=== PATIENT | female | born 1990 | race American Indian/Alaskan Native ===

== ENCOUNTER 2021-09-02 07:49 | Outpatient (CLI) | payer OTHER, MEDICAID ==
[2021-09-02 08:25] VITALS: BP 121/70
== END 2021-09-02 09:30 | disposition home or self-care (01) ==
LOC: TRG 07:49 → APU 07:50 → TRG 09:30
PROVIDERS: ATTEND Obstetrics & Gynecology
DX: O46.93 Antepartum hemorrhage, unspecified, third trimester (principal); Z3A.29 29 weeks gestation of pregnancy
CPT/HCPCS: 36415; 59025; 84112

== ENCOUNTER 2021-09-03 10:52 | Inpatient (IN) | payer OTHER, MEDICAID ==
[2021-09-03] MEDS ORDERED: MAGNESIUM HYDROXIDE (MOM) ORAL LIQD UDC PO PRN (11:10)
[2021-09-03] MEDS ORDERED: ONDANSETRON 4 MG/2 ML INJ IV PRN (11:10)
[2021-09-03] MEDS ORDERED: DOCUSATE SODIUM 100 MG CAP PO PRN (11:10)
[2021-09-03] MEDS ORDERED: ALUM-MAG HYDROXIDE-SIMETHICONE 200-200-20MG/5ML ORAL LIQD 30 ML PO PRN (11:10)
[2021-09-03] MEDS ORDERED: miSOPROStol 200 MCG TAB PR PRN (11:20)
[2021-09-03] MEDS ORDERED: TERBUTALINE 1 MG/1 ML INJ SUB-Q PRN (11:20)
[2021-09-03] MEDS ORDERED: OXYTOCIN 10 UNIT/1 ML INJ IM PRN (11:20)
[2021-09-03] MEDS ORDERED: ePHEDrine SULFATE 50 MG/1 ML INJ IV PRN (11:20)
[2021-09-03] MEDS ORDERED: METHYLERGONOVINE MALEATE 0.2 MG/ML VIAL IM PRN (11:20)
[2021-09-03] MEDS ORDERED: LOPERAMIDE 2 MG CAP PO PRN (11:20)
[2021-09-03] MEDS ORDERED: CARBOPROST TROMETHAMINE 250 MCG/1 ML INJ IM PRN (11:20)
--- NOTE | 2021-09-03 11:24 | History and Physical Report ---
History of Present Illness Date of examination: 09/03/21 Date of admission: 09/03/21 10:52 Chief complaint: Sent from office d/t PPROM. History of present illness: Pt states that she has been leaking fluids since Friday 09/01 @ 0800am. Was seen in triage and had a negative ROM test. At today's visit there was positive pooling and positive nitrazine. Consulted with Dr. Neumann. Will admit to labor and delivery and consult [facility]. Of note: this pt has been followed by [facility] d/t right pyelectasis, a thickened nuchal fold, suspected poor growth, and a vanishing twin. [facility], IUGR not found (EFW 46%, 2lb 3oz @ 26.5 wks), normal echo, right renal pyelectasis seen. EDC Confirmation: 11/15/2021 Gestational Age: 29.4 weeks on admission Past History : 1 Term Births: 0 Premature Births: 0 Living Children: 0 Para: 0 Mult. Births: 0 Prev : 0 Prev. attempt? 0 Aborta: 0 Elect. Ab: 0 Spont. Ab: 0 Ectopics: 0 Past Medical History: Reviewed and updated today: Negative Past Medical History Past Surgical History: Reviewed and updated today: Negative Past Surgical History Family History Summary: First Degree Blood Relative - Has No Known Family History - Entered On: 05/05/2021 Social History: Patient is single Smoking History: Patient is a former smoker. 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 Drug Use: no Past Medical History Surgery (Non-program coordinator): Negative Past Surgical History Abnormal PAP: negative KVNG Exposure: negative Infertility: negative Uterine Anomaly: negative Uterine Surgery (not C/S): negative Other Gynecologic Problems: negative Social Hx: Patient is single Smoking History: Patient is a former smoker. Stopped one month ago Infection History Hx of STD: none HIV Risk Eval: no Hepatitis B Risk Eval: low risk Personal hx. of genital herpes: no Rash, Viral, or Febrile illness since last LMP? no Varicella/Chicken Pox Status: Unknown TB Risk: no Genetic History Congenital Heart Defect: Mom: no Dad: no Jyoti Disease: Mom: no Dad: no Thalassemia Mom: no Dad: no Neural Tube Defect Mom: no Dad: no Down's Syndrome Mom: no Dad: no Mauro-Sachs Mom: no Dad: no Sickle Cell Disease/Trait Mom: no Dad: yes Hemophilia Mom: no Dad: no Muscular Dystrophy Mom: no Dad: no Cystic Fibrosis Mom: no Dad: no Sharon Chorea Mom: no Dad: no Mental Retardation Mom: no Dad: no Fragile X Mom: no Dad: no Other Genetic/Chromosomal Disorder Mom: no Dad: no Child w/other defect Mom: no Dad: no Enviromental Exposures Enviromental Exposures Reviewed Xray Exposure: no Medication, drug, or alcohol use since LMP: no Chemical/Other Exposure: no Exposure to Cat Liter: no Hx of Parvovirus (Fifth Disease): no Occupational Exposure to Children: none 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 Medications (reviewed today): None Current Allergies (reviewed today): No known allergies Laboratory Results Past History Past Medical History: no pertinent history Past Surgical History: no surgical history Family/Genetic History: none Social history: smoking (Former smoker, quit one month before first vi sit.) - Obstetrical History Expected Date of Delivery: 11/15/21 Actual Gestation: 29 Week(s) 4 Day(s) : 1 Para: 0 Hx # Term Pregnancies: 0 Number of Pregnancies: 0 Spontaneous Abortions: 0 Induced : 0 Number of Living Children: 0 Medications and Allergies Allergies Allergy/AdvReac Type Severity Reaction Status Date / Time No Known Allergies Allergy Verified 09/02/21 08:12 Home Medications Medication Instructions Recorded Confirmed Last Taken Type No.137/Iron/Folic Acd 1 tab PO DAILY 09/02/21 09/02/21 09/01/21 12:00 History [[facility] Vitamins Tablet] Active Meds: Active Medications Acetaminophen (Acetaminophen 325 Mg Tab) 1,000 mg PO Q6H PRN PRN Reason: Pain MILD(1-3)/Fever >100.5/PARKS Al Hydrox/Mg Hydrox/Simethicone (Alum-Mag Hydroxide-Simethicone [phone]/5ml Oral Liqd 30 Ml) 30 ml PO Q6H PRN PRN Reason: Indigestion Betamethasone Acet/Betameth SodPhos (Betamet Acet/Betamet Na Ph 6 Mg/Ml Inj 5 Ml Mdv) 12 mg IM Q24HR ANNALISA Stop: 09/04/21 10:01 Carboprost Tromethamine (Carboprost Tromethamine 250 Mcg/1 Ml Inj) 250 mcg IM ONCE PRN PRN Reason: Uterine Bleeding Diphenhydramine HCl (Diphenhydramine 25 Mg Cap) 25 mg PO Q6H PRN PRN Reason: Itching Docusate Sodium (Docusate Sodium 100 Mg Cap) 100 mg PO Q12H PRN PRN Reason: Constipation Ephedrine Sulfate (Ephedrine Sulfate 50 Mg/1 Ml Inj) 10 mg IV Q2M PRN PRN Reason: Hypotension Lactated Ringer's (Lactated Ringers) 1,000 mls @ 125 mls/hr IV DIRECT ANNALISA Ampicillin Sodium (Ampicillin/Ns 2 Gm/100 Ml) 2 gm in 100 mls @ 100 mls/hr IV Q6H ANNALISA; Protocol Stop: 09/05/21 06:59 Erythromycin Lactobionate 250 (mg/ Sodium Chloride) 100 mls @ 100 mls/hr IV Q6H ANNALISA; Protocol Stop: 09/05/21 06:59 Lactated Ringer's (Lactated Ringers) 1,000 mls @ 125 mls/hr IV DIRECT ANNALISA Oxytocin/Sodium Chloride (Pitocin/Ns 30 Unit/500ml) 30 units in 500 mls @ 40 mls/hr IV TITR ANNALISA; Protocol Loperamide HCl (Loperamide 2 Mg Cap) 2 mg PO ONCE PRN PRN Reason: give with Hemabate Magnesium Hydroxide (Magnesium Hydroxide (Mom) Oral Liqd Udc) 30 ml PO QHS PRN PRN Reason: Laxative Effect Methylergonovine Maleate (Methylergonovine Maleate 0.2 Mg/Ml Vial) 0.2 mg IM ONCE PRN PRN Reason: Uterine Bleeding Misoprostol (Misoprostol 200 Mcg Tab) 800 mcg MD ONCE PRN PRN Reason: Uterine Bleeding Multivitamins/Iron/Calcium ( Gxi48-Tr Fumarate-Folic Acid Vit Tab) 1 each PO QDAY ANNALISA Ondansetron HCl (Ondansetron 4 Mg/2 Ml Inj) 4 mg IV Q6H PRN PRN Reason: Nausea And Vomiting Oxytocin (Oxytocin 10 Unit/1 Ml Inj) 10 unit IM ONCE PRN PRN Reason: Uterine Bleeding Terbutaline Sulfate (Terbutaline 1 Mg/1 Ml Inj) 0.25 mg SUB-Q ONCE PRN PRN Reason: Hyperstimulation/Hypertonicity Review of Systems All systems: negative - Vital Signs Vital signs: During office exam per speculum: + pooling. Large amount of clear fluid seen in vaginal vault. Cervix appears closed at this time. Nitrazine positive. - Physical Exam Breasts: Positive: deferred Cardiovascular: Regular rate Lungs: Positive: Normal air movement Abdomen: Positive: normal appearance, soft Genitourinary (Female): Positive: normal external genitalia, normal perenium Vulva: both: normal Vagina: Positive: other (Large amount of clear fluid seen in vagina. ) Uterus: Positive: normal size (For 29 week gestation) Extremities: Positive: normal - Obstetrical FHR: category 1 Uterine Contraction Monitor Mode: External Cervical Dilatation: 0 (By appearance on speculum exam. ) Results Result Diagrams: 09/03/21 13:00 All other labs normal. GBS UNKNOWN HBsAg Screen Negative Negative *1 RPR Non Reactive Non Reactive *2 Rubella Antibodies, IgG 2.32 index Immune >0.99 *3 Non-immune <0.90 Equivocal 0.90 - 0.99 Immune >0.99 ABO Grouping O *4 Rh Factor Positive *5 Please note: Prior records for this patient's ABO / Rh type are not available for additional verification. Antibody Screen Negative Negative *6 WBC 10.2 x10E3/uL 3.4-10.8 *7 RBC [L] 3.63 x10E6/uL 3.77-5.28 *8 Hemoglobin 11.1 g/dL 11.1-15.9 *9 Hematocrit 34.9 % 34.0-46.6 *10 MCV 96 fL 79-97 *11 MCH 30.6 pg 26.6-33.0 *12 MCHC 31.8 g/dL 31.5-35.7 *13 RDW 12.0 % 11.7-15.4 *14 Platelets 276 x10E3/uL 150-450 *15 Neutrophils 74 % Not Estab. *16 Lymphs 18 % Not Estab. *17 Monocytes 7 % Not Estab. *18 Eos 1 % Not Estab. *19 Basos 0 % Not Estab. *20 ! Immature Cells <No Reported Value> *21 Neutrophils (Absolute) [H] 7.6 x10E3/uL 1.4-7.0 *22 Lymphs (Absolute) 1.9 x10E3/uL 0.7-3.1 *23 Monocytes(Absolute) 0.7 x10E3/uL 0.1-0.9 *24 Eos (Absolute) 0.1 x10E3/uL 0.0-0.4 *25 Baso (Absolute) 0.0 x10E3/uL 0.0-0.2 *26 ! Immature Granulocytes 0 % Not Estab. *27 ! Immature Grans (Abs) 0.0 x10E3/uL 0.0-0.1 *28 ! NRBC <No Reported Value> *29 Hematology Comments: <No Reported Value> *30 Tests: (2) HB Solu + Rflx Frac (481034) Hemoglobin (Hgb) Solubility Negative Negative *31 Tests: (3) HIV Ag/Ab with Reflex ([id number]) HIV Screen 4th Generation wRfx Non Reactive Non Reactive *32 Tests: (4) HCV Antibody reflex to MELANY ([id number]) HCV Ab <0.1 s/co ratio 0.0-0.9 *33 Tests: (5) Interpretation: ([id number]) ! Interpretation: SPRCS *34 Negative Not infected with HCV, unless recent infection is suspected or other evidence exists to indicate HCV infection. Assessment and Plan A: 30 y.o. @ 29.4 wks, PPROM. - Patient Problems (1) Nuchal fold thickening on ultrasound Current Visit: Yes Status: Acute (2) Pyelectasis of fetus on ultrasound Current Visit: Yes Status: Acute (3) premature rupture of membranes (PPROM) with unknown onset of labor Current Visit: Yes Status: Acute Plan to address problem: Admit to labor and delivery. Initiate IV. Draw admission labs. Start antibiotics. Steroids. Consult AMFM (called and will come evaluate). NICU consult. (4) with 29 completed weeks gestation Current Visit: Yes Status: Acute Plan to address problem: Continuous EFM for now.
[2021-09-03] MEDS ORDERED: OXYTOCIN DRIP 30 UNITS/500 ML BAG IV SCH (12:00)
[2021-09-03] MEDS ORDERED: ACETAMINOPHEN 325 MG TAB PO PRN (12:00)
[2021-09-03 13:01] LABS: Bilirubin,Urine NEG (Negative); Blood,Urine NEG (Negative); Color,Urine Yellow (Yellow); Protein,Urine <15 mg/dL mg/dL (Negative); RBC,Urine < 1.0 /HPF (0.0-6.0); Urobilinogen,Urine < 2.0 mg/dL (<2.0)
[2021-09-03] MEDS: BETAMET ACET/BETAMET NA PH 6 MG/ML INJ 5 ML MDV IM SCH (13:11)
[2021-09-03 13:20] LABS: Basophils % (Auto) 0.1 % (0.0-1.8); Eosinophils % (Auto) 0.5 % (0.0-4.3); Hemoglobin 12.1 gm/dl (10.1-14.3); Lymphocytes # (Auto) 1.3 K/mm3 (1.2-5.4); Lymphocytes % (Auto) 13.6 % (13.4-35.0); Mean Corpuscular HGB Conc 34 % (30-34); Mean Corpuscular Volume 94 fl (79-97); Monocytes # (Auto) 0.3 K/mm3 (0.0-0.8); Monocytes % (Auto) 3.6 % (0.0-7.3); Platelet Count 226 K/mm3 (140-440); Red Blood Count 3.82 M/mm3 (3.65-5.03); Red Cell Distribution Width 12.7 % (13.2-15.2)
[2021-09-03] MEDS: LACTATED RINGERS 1,000 ML IV SCH (13:36)
[2021-09-03] MEDS: ERYTHROMYCIN LACTOBIONATE 250 MG in SODIUM CHLORIDE 0.9% 100 ML IV SCH ×2 (13:36→20:15)
--- NOTE | 2021-09-03 13:46 | Consultation ---
"Consult Note - Parent Education I met with parent(s) and discussed the following:: Need for NICU admission, Poss ible need for intubation and surfactant or other resp support, Temperature regulation, Head ultrasounds to evaluate IVH, Eye exams for ROP screening, Possible need for IV fluids/TPN and IV antibiotics, Possible need for umbilical lines, Importance of providing breast milk & encouraged pumping aft delivery, Donor breast milk if baby meets criteria after , Need to monitor for jaundice Assessment and Plan - Plan Plan: NICU CONSULT done by tours hostess in L&D room 09/03/21 145 pm OB asked Neonatology for consult on this 30 year old mom who presents with PPROM at 29 weeks. Per report, mom ruptured on 09/01 and presented to L&D on 09/03. Discussion with mom regarding expectation of delivery at this gestation, including risk of lung disease, possibly needing prolonged invasive intubation, risk of sepsis given prolonged rupture. 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 |Donor milk is approved for babies born under 32 weeks but I encourage mom's own milk for improved protein quantity. Need for possible blood transfusion also reviewed with the mother. need for prolonged NICU stay also reviewed. All questions answered. Support provided to the mother. Thank you for this consult on this high risk patient. PLAN: Agree with ABNER cline/srinivasa for latency meds OB mgmt per OB/MFM Hopefully mom can stay for some time longer (until 34 weeks) if she does not develop signs/sx of infection or does not progress into active labor. Continue to keep NICU informed of any clinical changes Time spent on consult 30 minutes Katarzyna Navas MD Supervisor [employer]"
[2021-09-03] MEDS: AMPICILLIN/NS 2 GM/100 ML 2 GM/100 ML BAG IV SCH ×2 (14:59→21:40)
--- NOTE | 2021-09-03 17:26 | Ultrasound Report ---
ULTRASOUND OBSTETRIC COMPLETE INDICATION / CLINICAL INFORMATION: Estimated weight. Clinical Gestational Age (GA) in weeks, days: 29 weeks 4 days TECHNIQUE: Transabdominal. COMPARISON: None available. FINDINGS: NUMBER: Single PRESENTATION: cephalic PLACENTA: anterior MATERNAL ADNEXA: No significant abnormality. AMNIOTIC FLUID VOLUME: Lower limits of normal AMNIOTIC FLUID INDEX (SO) in cm (if measured): 7.2 MEASUREMENTS: - Biparietal Diameter = 7.3 cm = 29 weeks 3 days - Head Circumference = 26.8 cm = 29 weeks 1 day - Abdominal Circumference = 26.1 cm = 30 weeks 2 days - Femur Length = 5.6 cm = 29 weeks 4 days - Estimated Weight (in grams, if calculated): 1471 - Heart Rate (beats per minute): 142 ADDITIONAL FINDINGS: None. AVERAGE ULTRASOUND AGE (AUA) in weeks, days = 29 weeks 4 days IMPRESSION: 1. Single intrauterine with AUA of 29 weeks 4 days. Estimated weight is 1,471 grams. 2. SO measures 7.2 cm, which is at the lower limits of normal. Recommend continued follow-up. Signer Name: Ray Cruz MD Signed: 09/03/2021 5:22 PM Workstation Name: [id number]
[2021-09-04] MEDS: LACTATED RINGERS 1,000 ML IV SCH ×3 (00:57→22:49)
[2021-09-04] MEDS: ERYTHROMYCIN LACTOBIONATE 250 MG in SODIUM CHLORIDE 0.9% 100 ML IV SCH ×4 (01:45→20:24)
[2021-09-04] MEDS: AMPICILLIN/NS 2 GM/100 ML 2 GM/100 ML BAG IV SCH ×4 (03:13→21:30)
--- NOTE | 2021-09-04 07:47 | Consultation ---
History of Present Illness Consult date: 09/04/21 Past History Past Medical History: no pertinent history Past Surgical History: no surgical history Family/Genetic History: none - Obstetrical History : 1 Medications and Allergies Allergies Allergy/AdvReac Type Severity Reaction Status Date / Time No Known Allergies Allergy Verified 09/02/21 08:12 Home Medications Medication Instructions Recorded Confirmed Last Taken Type No.137/Iron/Folic Acd 1 tab PO DAILY 09/02/21 09/02/21 09/01/21 12:00 History [[facility] Vitamins Tablet] Active Meds: Active Medications Acetaminophen (Acetaminophen 325 Mg Tab) 1,000 mg PO Q6H PRN PRN Reason: Pain MILD(1-3)/Fever >100.5/PARKS Al Hydrox/Mg Hydrox/Simethicone (Alum-Mag Hydroxide-Simethicone [phone]/5ml Oral Liqd 30 Ml) 30 ml PO Q6H PRN PRN Reason: Indigestion Betamethasone Acet/Betameth SodPhos (Betamet Acet/Betamet Na Ph 6 Mg/Ml Inj 5 Ml Mdv) 12 mg IM Q24HR ANNALISA Stop: 09/04/21 10:01 Last Admin: 09/03/21 13:11 Dose: 12 mg Carboprost Tromethamine (Carboprost Tromethamine 250 Mcg/1 Ml Inj) 250 mcg IM ONCE PRN PRN Reason: Uterine Bleeding Diphenhydramine HCl (Diphenhydramine 25 Mg Cap) 25 mg PO Q6H PRN PRN Reason: Itching Docusate Sodium (Docusate Sodium 100 Mg Cap) 100 mg PO Q12H PRN PRN Reason: Constipation Ephedrine Sulfate (Ephedrine Sulfate 50 Mg/1 Ml Inj) 10 mg IV Q2M PRN PRN Reason: Hypotension Lactated Ringer's (Lactated Ringers) 1,000 mls @ 125 mls/hr IV DIRECT ANNALISA Last Admin: 09/04/21 00:57 Dose: 125 mls/hr Ampicillin Sodium (Ampicillin/Ns 2 Gm/100 Ml) 2 gm in 100 mls @ 100 mls/hr IV Q6H ANNALISA; Protocol Stop: 09/05/21 06:59 Last Admin: 09/04/21 03:13 Dose: 100 mls/hr Erythromycin Lactobionate 250 (mg/ Sodium Chloride) 100 mls @ 100 mls/hr IV Q6H ANNALISA; Protocol Stop: 09/05/21 06:59 Last Admin: 09/04/21 01:45 Dose: 100 mls/hr Lactated Ringer's (Lactated Ringers) 1,000 mls @ 125 mls/hr IV DIRECT ANNALISA Oxytocin/Sodium Chloride (Pitocin/Ns 30 Unit/500ml) 30 units in 500 mls @ 40 mls/hr IV TITR ANNALISA; Protocol Loperamide HCl (Loperamide 2 Mg Cap) 2 mg PO ONCE PRN PRN Reason: give with Hemabate Magnesium Hydroxide (Magnesium Hydroxide (Mom) Oral Liqd Udc) 30 ml PO QHS PRN PRN Reason: Laxative Effect Methylergonovine Maleate (Methylergonovine Maleate 0.2 Mg/Ml Vial) 0.2 mg IM ONCE PRN PRN Reason: Uterine Bleeding Misoprostol (Misoprostol 200 Mcg Tab) 800 mcg MT ONCE PRN PRN Reason: Uterine Bleeding Multivitamins/Iron/Calcium ( Foz69-Bk Fumarate-Folic Acid Vit Tab) 1 each PO QDAY ANNALISA Ondansetron HCl (Ondansetron 4 Mg/2 Ml Inj) 4 mg IV Q6H PRN PRN Reason: Nausea And Vomiting Oxytocin (Oxytocin 10 Unit/1 Ml Inj) 10 unit IM ONCE PRN PRN Reason: Uterine Bleeding Terbutaline Sulfate (Terbutaline 1 Mg/1 Ml Inj) 0.25 mg SUB-Q ONCE PRN PRN Reason: Hyperstimulation/Hypertonicity - Vital Signs Vital signs: Vital Signs Temp Pulse Resp BP Pulse Ox 98.5 F 98 H 20 119/77 98 09/03/21 11:24 09/03/21 11:24 09/03/21 11:24 09/03/21 11:24 09/03/21 11:24 Temp Pulse Resp BP Pulse Ox 97.9 F 96 H 18 114/66 90 09/04/21 05:13 09/04/21 07:43 09/04/21 05:13 09/04/21 05:11 09/04/21 07:43 Results Result Diagrams: 09/03/21 13:00 Abnormal lab results 09/03/21 Range/Units 13:00 RDW 12.7 L (13.2-15.2) % Seg Neutrophils % 82.2 H (40.0-70.0) % Seg Neutrophils # 7.9 H (1.8-7.7) K/mm3 All other labs normal. Assessment and Plan Pt seen Full consult to follow
--- NOTE | 2021-09-04 09:02 | Progress Note ---
Assessment and Plan Pt resting in bed. Reports +FM and LOF with clear fluid vaginally; denies VB and pain. POC d/w pt. No questions verbalized at this time. Pt agrees to POC as discussed with AMFM. Plan to continue current orders and to continue hospital admission until delivery @34wks. ANGELAM consult on chart reviewed: 9.7> 12.1/36< 226 US 09/03: SIUP cephalic anterior placenta SO 7.2cm EFW 3lbs 4oz FHR 142bpm A: IUP @29.5 wks gestation PROM P: Complete BMZ course, second dose due today Monitor for ssx of labor, chorioamnionitis, distress Latency antibiotics IV x48hrs then PO for another 5 days Twice weekly BPP, growth scan [id number] Indications for delivery: chorio, labor, nonreassuring status, 34weeks gestation - Patient Problems (1) Nuchal fold thickening on ultrasound Current Visit: Yes Status: Acute (2) with 29 completed weeks gestation Current Visit: Yes Status: Acute (3) premature rupture of membranes (PPROM) with unknown onset of labor Current Visit: Yes Status: Acute (4) Pyelectasis of fetus on ultrasound Current Visit: Yes Status: Acute Subjective - Subjective Date of service: 09/04/21 Principal diagnosis: PPROM, IUP @29.5wks Patient reports: loss of fluid, movement normal, no new complaints, no vaginal bleeding, no contractions Objective - Vital Signs Vital Signs: Vital Signs - 12hr 09/03/21 09/03/21 09/03/21 21:31 21:36 21:41 Temperature Pulse Rate 127 H 113 H 104 H Respiratory Rate Blood Pressure Blood Pressure [Right] O2 Sat by Pulse 97 98 98 Oximetry 09/03/21 09/03/21 09/03/21 21:46 21:51 21:56 Temperature Pulse Rate 117 H 131 H 121 H Respiratory Rate Blood Pressure Blood Pressure [Right] O2 Sat by Pulse 98 98 97 Oximetry 09/03/21 09/03/21 09/03/21 22:01 22:06 22:11 Temperature Pulse Rate 115 H 120 H 124 H Respiratory Rate Blood Pressure Blood Pressure [Right] O2 Sat by Pulse 97 98 98 Oximetry 02/09/22 02/09/22 02/09/22 22:16 22:21 22:32 Temperature Pulse Rate 104 H 113 H 109 H Respiratory Rate Blood Pressure Blood Pressure [Right] O2 Sat by Pulse 98 98 90 Oximetry 09/03/21 09/03/21 09/03/21 22:37 22:42 22:47 Temperature Pulse Rate 114 H 107 H 96 H Respiratory Rate Blood Pressure Blood Pressure [Right] O2 Sat by Pulse 97 96 97 Oximetry 09/03/21 09/03/21 09/03/21 22:48 22:52 23:13 Temperature Pulse Rate 101 H 114 H 105 H Respiratory Rate Blood Pressure Blood Pressure [Right] O2 Sat by Pulse 85 97 97 Oximetry 09/03/21 09/03/21 09/03/21 23:22 23:28 23:31 Temperature 97.7 F Pulse Rate 100 H 98 H 105 H Respiratory 18 Rate Blood Pressure 109/61 Blood Pressure [Right] O2 Sat by Pulse 98 89 Oximetry 09/03/21 09/03/21 09/03/21 23:33 23:37 23:38 Temperature Pulse Rate 100 H 114 H Respiratory Rate Blood Pressure Blood Pressure [Right] O2 Sat by Pulse 98 77 L 77 L Oximetry 09/03/21 09/03/21 09/03/21 23:43 23:48 23:53 Temperature Pulse Rate 102 H 107 H 106 H Respiratory Rate Blood Pressure Blood Pressure [Right] O2 Sat by Pulse 96 96 95 Oximetry 09/03/21 09/04/21 09/04/21 23:58 00:03 00:08 Temperature Pulse Rate 106 H 108 H 108 H Respiratory Rate Blood Pressure Blood Pressure [Right] O2 Sat by Pulse 96 95 95 Oximetry 09/04/21 09/04/21 09/04/21 00:09 00:21 00:22 Temperature Pulse Rate 110 H 54 L 100 H Respiratory Rate Blood Pressure Blood Pressure [Right] O2 Sat by Pulse 94 84 98 Oximetry 09/04/21 09/04/21 09/04/21 00:26 00:27 00:32 Temperature Pulse Rate 40 L 99 H 109 H Respiratory Rate Blood Pressure Blood Pressure [Right] O2 Sat by Pulse 86 90 94 Oximetry 09/04/21 09/04/21 09/04/21 00:58 00:59 01:04 Temperature Pulse Rate 107 H 100 H 103 H Respiratory Rate Blood Pressure Blood Pressure [Right] O2 Sat by Pulse 86 94 90 Oximetry 09/04/21 09/04/21 09/04/21 01:06 01:09 01:14 Temperature Pulse Rate 101 H 102 H 95 H Respiratory Rate Blood Pressure Blood Pressure [Right] O2 Sat by Pulse 91 91 87 Oximetry 09/04/21 09/04/21 09/04/21 01:19 01:24 01:28 Temperature Pulse Rate 100 H 103 H Respiratory Rate Blood Pressure Blood Pressure [Right] O2 Sat by Pulse 89 89 91 Oximetry 09/04/21 09/04/21 09/04/21 01:29 01:34 01:39 Temperature Pulse Rate 121 H 80 88 Respiratory Rate Blood Pressure Blood Pressure [Right] O2 Sat by Pulse 96 96 94 Oximetry 09/04/21 09/04/21 09/04/21 01:44 01:49 01:54 Temperature Pulse Rate 94 H 75 86 Respiratory Rate Blood Pressure Blood Pressure [Right] O2 Sat by Pulse 100 97 93 Oximetry 09/04/21 09/04/21 09/04/21 01:56 01:59 02:03 Temperature Pulse Rate 86 80 91 H Respiratory Rate Blood Pressure Blood Pressure [Right] O2 Sat by Pulse 83 L 93 91 Oximetry 09/04/21 09/04/21 09/04/21 02:04 02:09 02:14 Temperature Pulse Rate 85 77 88 Respiratory Rate Blood Pressure Blood Pressure [Right] O2 Sat by Pulse 92 95 93 Oximetry 09/04/21 09/04/21 09/04/21 02:19 02:24 02:29 Temperature Pulse Rate 92 H 90 81 Respiratory Rate Blood Pressure Blood Pressure [Right] O2 Sat by Pulse 93 93 96 Oximetry 09/04/21 09/04/21 09/04/21 02:34 02:39 02:44 Temperature Pulse Rate 78 87 86 Respiratory Rate Blood Pressure Blood Pressure [Right] O2 Sat by Pulse 96 96 95 Oximetry 09/04/21 09/04/21 09/04/21 02:49 02:54 02:56 Temperature Pulse Rate 84 79 119 H Respiratory Rate Blood Pressure Blood Pressure [Right] O2 Sat by Pulse 94 93 89 Oximetry 09/04/21 09/04/21 09/04/21 02:59 03:04 03:09 Temperature Pulse Rate 74 83 78 Respiratory Rate Blood Pressure Blood Pressure [Right] O2 Sat by Pulse 94 94 94 Oximetry 09/04/21 09/04/21 09/04/21 03:14 03:19 03:24 Temperature Pulse Rate 79 76 74 Respiratory Rate Blood Pressure Blood Pressure [Right] O2 Sat by Pulse 98 98 98 Oximetry 09/04/21 09/04/21 09/04/21 03:29 03:34 03:39 Temperature Pulse Rate 89 76 84 Respiratory Rate Blood Pressure Blood Pressure [Right] O2 Sat by Pulse 98 98 96 Oximetry 09/04/21 09/04/21 09/04/21 03:44 03:49 03:54 Temperature Pulse Rate 74 77 93 H Respiratory Rate Blood Pressure Blood Pressure [Right] O2 Sat by Pulse 98 96 98 Oximetry 09/04/21 09/04/21 09/04/21 03:59 04:04 04:09 Temperature Pulse Rate 65 73 80 Respiratory Rate Blood Pressure Blood Pressure [Right] O2 Sat by Pulse 96 95 96 Oximetry 09/04/21 09/04/21 09/04/21 04:14 04:19 04:24 Temperature Pulse Rate 75 77 75 Respiratory Rate Blood Pressure Blood Pressure [Right] O2 Sat by Pulse 96 95 95 Oximetry 09/04/21 09/04/21 09/04/21 04:29 04:31 04:34 Temperature Pulse Rate 74 65 Respiratory Rate Blood Pressure Blood Pressure [Right] O2 Sat by Pulse 97 79 L 96 Oximetry 09/04/21 09/04/21 09/04/21 04:39 04:44 04:51 Temperature Pulse Rate 73 80 94 H Respiratory Rate Blood Pressure Blood Pressure [Right] O2 Sat by Pulse 97 96 96 Oximetry 09/04/21 09/04/21 09/04/21 05:10 05:11 05:13 Temperature 97.9 F Pulse Rate 87 83 Respiratory 18 Rate Blood Pressure 114/66 Blood Pressure [Right] O2 Sat by Pulse 98 Oximetry 09/04/21 09/04/21 09/04/21 05:33 05:34 05:39 Temperature Pulse Rate 105 H 86 75 Respiratory Rate Blood Pressure Blood Pressure [Right] O2 Sat by Pulse 74 L 94 100 Oximetry 09/04/21 09/04/21 09/04/21 06:01 06:03 06:08 Temperature Pulse Rate 72 77 86 Respiratory Rate Blood Pressure Blood Pressure [Right] O2 Sat by Pulse 76 L 98 93 Oximetry 09/04/21 09/04/21 09/04/21 06:09 06:13 06:18 Temperature Pulse Rate 93 H 106 H 81 Respiratory Rate Blood Pressure Blood Pressure [Right] O2 Sat by Pulse 83 L 97 97 Oximetry 09/04/21 09/04/21 09/04/21 06:23 06:28 06:33 Temperature Pulse Rate 94 H 92 H 84 Respiratory Rate Blood Pressure Blood Pressure [Right] O2 Sat by Pulse 99 98 98 Oximetry 09/04/21 09/04/21 09/04/21 06:38 06:43 06:48 Temperature Pulse Rate 79 92 H 91 H Respiratory Rate Blood Pressure Blood Pressure [Right] O2 Sat by Pulse 98 97 98 Oximetry 09/04/21 09/04/21 09/04/21 06:53 06:58 07:03 Temperature Pulse Rate 84 89 98 H Respiratory Rate Blood Pressure Blood Pressure [Right] O2 Sat by Pulse 97 99 98 Oximetry 09/04/21 09/04/21 09/04/21 07:08 07:09 07:13 Temperature Pulse Rate 91 H 78 86 Respiratory Rate Blood Pressure Blood Pressure [Right] O2 Sat by Pulse 98 81 L 91 Oximetry 09/04/21 09/04/21 09/04/21 07:18 07:23 07:28 Temperature Pulse Rate 92 H 96 H 86 Respiratory Rate Blood Pressure Blood Pressure [Right] O2 Sat by Pulse 89 89 84 Oximetry 09/04/21 09/04/21 09/04/21 07:33 07:36 07:38 Temperature Pulse Rate 99 H 92 H 90 Respiratory Rate Blood Pressure Blood Pressure [Right] O2 Sat by Pulse 89 90 90 Oximetry 09/04/21 09/04/21 09/04/21 07:43 07:47 07:48 Temperature Pulse Rate 96 H 84 90 Respiratory Rate Blood Pressure Blood Pressure [Right] O2 Sat by Pulse 90 91 90 Oximetry 09/04/21 09/04/21 09/04/21 07:53 07:54 07:58 Temperature Pulse Rate 63 88 Respiratory Rate Blood Pressure 108/75 Blood Pressure [Right] O2 Sat by Pulse 77 L 89 84 Oximetry 09/04/21 09/04/21 09/04/21 08:00 08:18 08:23 Temperature 98.0 F Pulse Rate 86 79 91 H Respiratory 18 Rate Blood Pressure Blood Pressure 108/75 [Right] O2 Sat by Pulse 96 87 83 L Oximetry 09/04/21 09/04/21 09/04/21 08:28 08:29 08:33 Temperature Pulse Rate 88 80 88 Respiratory Rate Blood Pressure Blood Pressure [Right] O2 Sat by Pulse 100 90 97 Oximetry 09/04/21 09/04/21 09/04/21 08:38 08:42 08:44 Temperature Pulse Rate 93 H 93 H 71 Respiratory Rate Blood Pressure Blood Pressure [Right] O2 Sat by Pulse 96 89 91 Oximetry 09/04/21 09/04/21 09/04/21 08:47 08:49 08:53 Temperature Pulse Rate 90 96 H Respiratory Rate Blood Pressure Blood Pressure [Right] O2 Sat by Pulse 82 L 98 90 Oximetry 09/04/21 09/04/21 08:54 08:59 Temperature Pulse Rate 91 H 96 H Respiratory Rate Blood Pressure Blood Pressure [Right] O2 Sat by Pulse 96 98 Oximetry - Exam Breasts: deferred Cardiovascular: Regular rate Lungs: Normal air movement Abdomen: Present: normal appearance, soft. Absent: distention, tenderness, guarding Uterus: Present: normal, other (gravid) FHR: auscultation normal, category 1 Uterine Contraction Monitor Mode: External Uterine Contraction Pattern: Absent Uterine Tone Measurement Phase: Resting Extremities: normal - Labs Labs: Abnormal Labs 09/03/21 13:00 RDW 12.7 L Seg Neutrophils % 82.2 H Seg Neutrophils # 7.9 H Laboratory Results - last 24 hr 09/03/21 09/03/21 09/03/21 13:00 13:00 Unknown WBC 9.7 RBC 3.82 Hgb 12.1 Hct 36.0 MCV 94 MCH 32 MCHC 34 RDW 12.7 L Plt Count 226 Lymph % (Auto) 13.6 [place] % (Auto) 3.6 Eos % (Auto) 0.5 Baso % (Auto) 0.1 Lymph # (Auto) 1.3 [place] # (Auto) 0.3 Eos # (Auto) 0.0 Baso # (Auto) 0.0 Seg Neutrophils % 82.2 H Seg Neutrophils # 7.9 H Urine Color Yellow Urine Turbidity Clear Urine pH 6.0 Ur Specific [place] 1.018 Urine Protein <15 mg/dl Urine Glucose (UA) Neg Urine Ketones 80 Urine Blood Neg Urine Nitrite Neg Urine Bilirubin Neg Urine Urobilinogen < 2.0 Ur Leukocyte Esterase Neg Urine WBC (Auto) 1.0 Urine RBC (Auto) < 1.0 Blood Type O POSITIVE Antibody Screen Negative
[2021-09-04] MEDS: PRENATAL VIT27-FE FUMARATE-FOLIC ACID VIT TAB PO SCH (10:30)
[2021-09-04] MEDS: BETAMET ACET/BETAMET NA PH 6 MG/ML INJ 5 ML MDV IM SCH (13:25)
[2021-09-04] MEDS ORDERED: BETAMET ACET/BETAMET NA PH 6 MG/ML INJ 5 ML MDV IM ONE (13:45)
[2021-09-05] MEDS: ERYTHROMYCIN LACTOBIONATE 250 MG in SODIUM CHLORIDE 0.9% 100 ML IV SCH (03:34)
[2021-09-05] MEDS: AMPICILLIN/NS 2 GM/100 ML 2 GM/100 ML BAG IV SCH (04:38)
--- NOTE | 2021-09-05 07:52 | Progress Note ---
Assessment and Plan 30y/o @ 29+6 wks gestation, PPROM ~09/01/2021 No abdominal tenderness, small amount of wetness on peripad worn all night. + FM, no ctx. AMFM recommendations: * BMZ course completed 09/04/2021 * Monitor for ssx of labor, chorioamnionitis, distress * Latency antibiotics IV x48hrs then PO for another 5 days * Twice weekly BPP (ordered for today) * growth scan [id number] (last growth scan 09/03/2021) Indications for delivery: chorio, labor, nonreassuring status, 34weeks gestation US 09/03: SIUP cephalic anterior placenta SO 7.2cm EFW 3lbs 4oz - Patient Problems (1) Nuchal fold thickening on ultrasound Current Visit: Yes Status: Acute (2) with 29 completed weeks gestation Current Visit: Yes Status: Acute (3) premature rupture of membranes (PPROM) with unknown onset of labor Current Visit: Yes Status: Acute (4) Pyelectasis of fetus on ultrasound Current Visit: Yes Status: Acute Subjective - Subjective Date of service: 09/05/21 Principal diagnosis: PPROM, IUP @29.6wks Patient reports: loss of fluid, movement normal, no new complaints, no vaginal bleeding, no contractions Objective - Vital Signs Vital Signs: Vital Signs - 12hr 09/04/21 09/04/21 09/04/21 20:08 20:13 20:18 Temperature Pulse Rate 125 H 113 H 121 H O2 Sat by Pulse 98 98 99 Oximetry 09/04/21 09/04/21 09/04/21 20:23 20:28 20:33 Temperature Pulse Rate 114 H 108 H 98 H O2 Sat by Pulse 98 99 99 Oximetry 09/04/21 09/04/21 09/04/21 20:38 20:43 20:48 Temperature Pulse Rate 102 H 107 H 110 H O2 Sat by Pulse 100 98 99 Oximetry 09/04/21 09/04/21 09/04/21 20:53 20:58 21:03 Temperature Pulse Rate 97 H 104 H 102 H O2 Sat by Pulse 98 98 98 Oximetry 09/04/21 09/04/21 09/04/21 21:08 21:13 21:18 Temperature Pulse Rate 104 H 100 H 103 H O2 Sat by Pulse 97 97 99 Oximetry 09/04/21 09/04/21 09/04/21 21:23 21:28 21:33 Temperature 98.6 F Pulse Rate 113 H 101 H 96 H O2 Sat by Pulse 98 99 99 Oximetry 09/04/21 09/04/21 09/04/21 21:38 21:43 21:48 Temperature Pulse Rate 102 H 102 H 79 O2 Sat by Pulse 98 98 99 Oximetry 09/04/21 09/04/21 09/04/21 21:53 21:58 22:03 Temperature Pulse Rate 92 H 80 97 H O2 Sat by Pulse 98 98 99 Oximetry 09/04/21 09/04/21 09/04/21 22:08 22:13 22:18 Temperature Pulse Rate 101 H 107 H 107 H O2 Sat by Pulse 98 97 99 Oximetry 09/04/21 09/04/21 09/04/21 22:23 22:28 22:33 Temperature Pulse Rate 101 H 101 H 107 H O2 Sat by Pulse 100 99 99 Oximetry 09/04/21 09/04/21 09/04/21 22:38 22:43 22:48 Temperature Pulse Rate 112 H 101 H 94 H O2 Sat by Pulse 97 98 99 Oximetry 09/04/21 09/04/21 09/04/21 22:53 22:58 23:03 Temperature Pulse Rate 97 H 86 106 H O2 Sat by Pulse 99 99 98 Oximetry 09/04/21 09/04/21 09/04/21 23:08 23:13 23:18 Temperature Pulse Rate 88 75 92 H O2 Sat by Pulse 98 98 99 Oximetry 09/04/21 09/04/21 09/04/21 23:23 23:28 23:33 Temperature Pulse Rate 95 H 75 77 O2 Sat by Pulse 98 99 94 Oximetry 09/04/21 09/04/21 09/04/21 23:38 23:43 23:48 Temperature Pulse Rate 67 85 93 H O2 Sat by Pulse 95 96 95 Oximetry 09/04/21 09/04/21 09/05/21 23:53 23:58 00:03 Temperature Pulse Rate 82 76 75 O2 Sat by Pulse 97 96 96 Oximetry 09/05/21 09/05/21 09/05/21 00:08 00:13 00:18 Temperature Pulse Rate 76 80 77 O2 Sat by Pulse 96 96 95 Oximetry 09/05/21 09/05/21 09/05/21 00:23 00:28 00:33 Temperature Pulse Rate 83 78 84 O2 Sat by Pulse 95 95 95 Oximetry 09/05/21 09/05/21 09/05/21 00:38 00:43 00:48 Temperature Pulse Rate 86 70 79 O2 Sat by Pulse 96 96 96 Oximetry 09/05/21 09/05/21 09/05/21 01:30 01:35 01:40 Temperature Pulse Rate 74 68 71 O2 Sat by Pulse 100 98 96 Oximetry 09/05/21 09/05/21 09/05/21 01:45 01:50 01:55 Temperature Pulse Rate 69 68 80 O2 Sat by Pulse 98 97 97 Oximetry 09/05/21 09/05/21 09/05/21 02:00 02:05 02:10 Temperature Pulse Rate 74 82 82 O2 Sat by Pulse 97 97 97 Oximetry 09/05/21 09/05/21 09/05/21 02:15 02:20 02:25 Temperature Pulse Rate 77 92 H 73 O2 Sat by Pulse 98 97 97 Oximetry 09/05/21 09/05/21 09/05/21 02:30 02:35 02:40 Temperature Pulse Rate 64 74 76 O2 Sat by Pulse 98 98 98 Oximetry 09/05/21 09/05/21 09/05/21 02:45 02:50 02:55 Temperature Pulse Rate 71 64 76 O2 Sat by Pulse 99 99 98 Oximetry 09/05/21 09/05/21 09/05/21 03:00 03:05 03:10 Temperature Pulse Rate 67 70 82 O2 Sat by Pulse 99 98 98 Oximetry 09/05/21 09/05/21 09/05/21 03:15 03:20 03:25 Temperature Pulse Rate 68 66 78 O2 Sat by Pulse 96 98 98 Oximetry 09/05/21 09/05/21 09/05/21 03:30 03:34 03:35 Temperature 98.9 F Pulse Rate 65 90 O2 Sat by Pulse 97 99 Oximetry 09/05/21 09/05/21 09/05/21 03:40 03:45 03:50 Temperature Pulse Rate 77 66 69 O2 Sat by Pulse 97 96 97 Oximetry 09/05/21 09/05/21 09/05/21 03:55 04:00 04:05 Temperature Pulse Rate 77 78 73 O2 Sat by Pulse 96 95 96 Oximetry 09/05/21 09/05/21 09/05/21 04:10 04:15 04:20 Temperature Pulse Rate 85 68 71 O2 Sat by Pulse 96 97 96 Oximetry 09/05/21 09/05/21 09/05/21 04:25 04:30 04:35 Temperature Pulse Rate 73 72 89 O2 Sat by Pulse 96 96 98 Oximetry 09/05/21 09/05/21 09/05/21 04:40 04:45 04:50 Temperature Pulse Rate 73 88 103 H O2 Sat by Pulse 99 97 99 Oximetry 09/05/21 09/05/21 09/05/21 04:55 05:00 05:05 Temperature Pulse Rate 97 H 68 71 O2 Sat by Pulse 100 99 98 Oximetry 09/05/21 09/05/21 09/05/21 05:10 05:15 05:20 Temperature Pulse Rate 68 65 72 O2 Sat by Pulse 99 100 98 Oximetry 09/05/21 09/05/21 09/05/21 05:25 05:30 05:35 Temperature Pulse Rate 71 72 80 O2 Sat by Pulse 99 99 100 Oximetry 09/05/21 09/05/21 09/05/21 05:40 05:45 05:50 Temperature Pulse Rate 82 58 L 62 O2 Sat by Pulse 98 100 99 Oximetry 09/05/21 09/05/21 09/05/21 05:55 06:00 06:05 Temperature Pulse Rate 62 61 67 O2 Sat by Pulse 99 100 98 Oximetry 09/05/21 09/05/21 09/05/21 06:10 06:15 06:20 Temperature Pulse Rate 83 71 76 O2 Sat by Pulse 98 99 99 Oximetry 09/05/21 09/05/21 09/05/21 06:25 06:30 06:35 Temperature Pulse Rate 87 79 89 O2 Sat by Pulse 98 98 100 Oximetry 09/05/21 09/05/21 09/05/21 06:40 06:45 06:50 Temperature Pulse Rate 85 93 H 85 O2 Sat by Pulse 97 98 99 Oximetry 09/05/21 09/05/21 09/05/21 06:55 07:00 07:05 Temperature Pulse Rate 81 85 86 O2 Sat by Pulse 97 98 100 Oximetry 09/05/21 09/05/21 09/05/21 07:12 07:17 07:22 Temperature Pulse Rate 66 67 O2 Sat by Pulse 55 L 98 96 Oximetry 09/05/21 09/05/21 09/05/21 07:27 07:32 07:37 Temperature Pulse Rate 72 75 64 O2 Sat by Pulse 96 98 99 Oximetry 09/05/21 07:42 Temperature Pulse Rate 71 O2 Sat by Pulse 98 Oximetry - Exam Breasts: normal Cardiovascular: Regular rate Abdomen: Present: normal appearance, soft, distention. Absent: tenderness Vulva: both: normal Uterus: Present: normal FHR: category 1 Uterine Contraction Monitor Mode: External Uterine Contraction Pattern: Absent Uterine Tone Measurement Phase: Resting Extremities: normal - Labs Labs: Abnormal Labs 09/03/21 13:00 RDW 12.7 L Seg Neutrophils % 82.2 H Seg Neutrophils # 7.9 H Laboratory Results - last 24 hr 09/03/21 09/04/21 13:00 10:00 Syphilis IgG/IgM Ab Nonreactive SARS-CoV-2 (PCR) Negative
[2021-09-05] MEDS ORDERED: AMPICILLIN/NS 2 GM/100 ML 2 GM/100 ML BAG IV SCH (11:00)
[2021-09-05] MEDS: PRENATAL VIT27-FE FUMARATE-FOLIC ACID VIT TAB PO SCH (11:05)
[2021-09-05] MEDS ORDERED: ERYTHROMYCIN LACTOBIONATE 250 MG in SODIUM CHLORIDE 0.9% 100 ML IV ONE (11:30)
[2021-09-05] MEDS: LACTATED RINGERS 1,000 ML IV SCH (11:56)
--- NOTE | 2021-09-05 14:34 | Ultrasound Report ---
ULTRASOUND OBSTETRIC LIMITED INDICATION / CLINICAL INFORMATION: WELL BEING. Clinical Gestational Age (GA) in weeks, days: 29 weeks 6 days TECHNIQUE: Transabdominal. COMPARISON: OB ultrasound 09/03/2021. FINDINGS: HEART RATE (beats per minute): 156 BPM AMNIOTIC FLUID INDEX (cm) = 10.0 cm (normal = 7-24 cm) PRESENTATION: Cephalic. ADDITIONAL FINDINGS: None. BREATHING MOVEMENT = 2 GROSS BODY MOVEMENT = 2 TONE = 2 QUALITATIVE AMNIOTIC FLUID VOLUME = 2 TOTAL BIOPHYSICAL SCORE = 8/8 IMPRESSION: 1. No significant sonographic abnormality. 2. Normal biophysical profile. Scribed by: Lore Graham RDMS, RVT Scribed: 09/05/2021 1:26 PM I have reviewed the images, agree with this report, and edited this report as needed. Signer Name: Lazaro Doran MD Signed: 09/05/2021 2:29 PM Workstation Name: [id number]
--- NOTE | 2021-09-05 14:42 | Event Note ---
Date: 09/05/21 u/s reviewed: BPP 03/02, SO increased to 10.0
[2021-09-06] MEDS: AMOXICILLIN 250 MG CAP PO SCH ×2 (07:51→16:12)
[2021-09-06] MEDS: ERYTHROMYCIN BASE 250 MG CAPSULE DR PO SCH ×2 (07:51→16:11)
[2021-09-06] MEDS: PRENATAL VIT27-FE FUMARATE-FOLIC ACID VIT TAB PO SCH (10:09)
--- NOTE | 2021-09-06 12:19 | Progress Note ---
Assessment and Plan A: 30yo G1 @ 30w. Hospital day #3 admitted for pPROM on 09/01. NST reactive this AM. VSS. Pt lying left lateral in bed, supportive partner at bedside. Affirms movement and denies vaginal bleeding, abdominal pain, chest pain, SOB, headaches, and vision changes. Reports that clear, nonmalodorous LOF continues, but that it has decreased in amount since last night. Per latest U/S on 09/05. BPP: 8/8, SO now 10 (previously 7.2 on 09/03). P: Discontinue cEFM. Plan for NST 8a and 8p daily while status remains reassuring and pt remains asymptomatic. IV antibiotics complete, pt now taking oral antibiotics. Encourage ambulation. - Patient Problems (1) Pyelectasis of fetus on ultrasound Current Visit: Yes Status: Acute (2) premature rupture of membranes (PPROM) with unknown onset of labor Current Visit: Yes Status: Acute Plan to address problem: [facility] recommendations: * BMZ course completed 09/04/2021 * Monitor for ssx of labor, chorioamnionitis, distress * Latency antibiotics IV completed. PO ordered today on 09/06 and will continue for next 5 days * Twice weekly BPP (Next for 09/09) * growth scan [id number] (last growth scan was 09/03, Next due on September 24) Indications for delivery: chorio, labor, nonreassuring status, 34weeks gestation (3) with 29 completed weeks gestation Current Visit: Yes Status: Acute Subjective - Subjective Date of service: 09/06/21 Principal diagnosis: PPROM, IUP @29.4 ws, today (09/06) she is 30 wks Patient reports: loss of fluid, movement normal, no new complaints, no vaginal bleeding, no contractions Objective - Vital Signs Vital Signs: Vital Signs - 12hr 09/06/21 09/06/21 09/06/21 00:22 00:27 00:32 Pulse Rate 81 85 71 Blood Pressure O2 Sat by Pulse 95 95 99 Oximetry O2 Sat by Pulse Oximetry [ Bilateral] 09/06/21 09/06/21 09/06/21 00:37 00:42 00:47 Pulse Rate 82 72 79 Blood Pressure O2 Sat by Pulse 94 96 95 Oximetry O2 Sat by Pulse Oximetry [ Bilateral] 09/06/21 09/06/21 09/06/21 00:52 00:57 01:02 Pulse Rate 85 96 H 71 Blood Pressure 110/54 O2 Sat by Pulse 94 98 98 Oximetry O2 Sat by Pulse Oximetry [ Bilateral] 09/06/21 09/06/21 09/06/21 01:07 01:12 01:17 Pulse Rate 73 80 79 Blood Pressure O2 Sat by Pulse 95 96 97 Oximetry O2 Sat by Pulse Oximetry [ Bilateral] 09/06/21 09/06/21 09/06/21 01:22 01:27 01:32 Pulse Rate 78 74 90 Blood Pressure O2 Sat by Pulse 97 96 99 Oximetry O2 Sat by Pulse Oximetry [ Bilateral] 09/06/21 09/06/21 09/06/21 01:37 01:42 01:47 Pulse Rate 105 H 78 74 Blood Pressure O2 Sat by Pulse 100 96 96 Oximetry O2 Sat by Pulse Oximetry [ Bilateral] 09/06/21 09/06/21 09/06/21 01:52 01:57 02:02 Pulse Rate 69 85 77 Blood Pressure 97/54 O2 Sat by Pulse 97 100 97 Oximetry O2 Sat by Pulse Oximetry [ Bilateral] 09/06/21 09/06/21 09/06/21 02:07 02:12 02:17 Pulse Rate 76 75 77 Blood Pressure O2 Sat by Pulse 97 96 96 Oximetry O2 Sat by Pulse Oximetry [ Bilateral] 09/06/21 09/06/21 09/06/21 02:22 02:27 02:32 Pulse Rate 85 69 85 Blood Pressure O2 Sat by Pulse 98 100 97 Oximetry O2 Sat by Pulse Oximetry [ Bilateral] 09/06/21 09/06/21 09/06/21 02:37 02:42 02:51 Pulse Rate 69 83 68 Blood Pressure O2 Sat by Pulse 98 98 98 Oximetry O2 Sat by Pulse Oximetry [ Bilateral] 09/06/21 09/06/21 09/06/21 02:56 03:01 03:06 Pulse Rate 92 H 62 62 Blood Pressure O2 Sat by Pulse 98 98 99 Oximetry O2 Sat by Pulse Oximetry [ Bilateral] 09/06/21 09/06/21 09/06/21 03:11 03:16 03:21 Pulse Rate 63 65 98 H Blood Pressure O2 Sat by Pulse 99 97 98 Oximetry O2 Sat by Pulse Oximetry [ Bilateral] 09/06/21 09/06/21 09/06/21 03:26 03:31 03:36 Pulse Rate 73 65 67 Blood Pressure O2 Sat by Pulse 98 98 98 Oximetry O2 Sat by Pulse Oximetry [ Bilateral] 09/06/21 09/06/21 09/06/21 03:41 03:46 03:51 Pulse Rate 75 69 64 Blood Pressure O2 Sat by Pulse 96 98 99 Oximetry O2 Sat by Pulse Oximetry [ Bilateral] 09/06/21 09/06/21 09/06/21 03:56 04:01 04:06 Pulse Rate 65 77 71 Blood Pressure O2 Sat by Pulse 98 99 99 Oximetry O2 Sat by Pulse Oximetry [ Bilateral] 09/06/21 09/06/21 09/06/21 04:11 04:16 04:21 Pulse Rate 69 67 69 Blood Pressure O2 Sat by Pulse 97 98 99 Oximetry O2 Sat by Pulse Oximetry [ Bilateral] 09/06/21 09/06/21 09/06/21 04:26 04:31 04:36 Pulse Rate 73 59 L 65 Blood Pressure O2 Sat by Pulse 98 98 98 Oximetry O2 Sat by Pulse Oximetry [ Bilateral] 09/06/21 09/06/21 09/06/21 04:41 04:46 04:51 Pulse Rate 74 67 66 Blood Pressure O2 Sat by Pulse 98 98 100 Oximetry O2 Sat by Pulse Oximetry [ Bilateral] 09/06/21 09/06/21 09/06/21 04:56 05:01 05:06 Pulse Rate 56 L 70 69 Blood Pressure O2 Sat by Pulse 98 98 99 Oximetry O2 Sat by Pulse Oximetry [ Bilateral] 09/06/21 09/06/21 09/06/21 05:11 05:21 05:26 Pulse Rate 66 85 60 Blood Pressure O2 Sat by Pulse 99 100 99 Oximetry O2 Sat by Pulse Oximetry [ Bilateral] 09/06/21 09/06/21 09/06/21 05:35 05:40 05:45 Pulse Rate 60 57 L 62 Blood Pressure O2 Sat by Pulse 99 97 98 Oximetry O2 Sat by Pulse Oximetry [ Bilateral] 09/06/21 09/06/21 09/06/21 05:50 05:55 06:00 Pulse Rate 64 70 80 Blood Pressure O2 Sat by Pulse 96 96 96 Oximetry O2 Sat by Pulse Oximetry [ Bilateral] 02/07/1609/06/21 09/06/21 06:05 06:10 06:15 Pulse Rate 82 75 62 Blood Pressure O2 Sat by Pulse 96 96 98 Oximetry O2 Sat by Pulse Oximetry [ Bilateral] 09/06/21 09/06/21 09/06/21 06:20 06:25 06:30 Pulse Rate 79 81 78 Blood Pressure O2 Sat by Pulse 97 97 97 Oximetry O2 Sat by Pulse Oximetry [ Bilateral] 09/06/21 09/06/21 09/06/21 06:35 06:40 06:45 Pulse Rate 79 75 83 Blood Pressure O2 Sat by Pulse 98 97 97 Oximetry O2 Sat by Pulse Oximetry [ Bilateral] 09/06/21 09/06/21 09/06/21 06:50 06:55 07:00 Pulse Rate 80 78 80 Blood Pressure O2 Sat by Pulse 98 97 98 Oximetry O2 Sat by Pulse Oximetry [ Bilateral] 09/06/21 09/06/21 09/06/21 07:05 07:10 07:15 Pulse Rate 77 94 H 70 Blood Pressure O2 Sat by Pulse 97 98 99 Oximetry O2 Sat by Pulse Oximetry [ Bilateral] 09/06/21 09/06/21 09/06/21 07:20 07:25 07:30 Pulse Rate 83 83 80 Blood Pressure O2 Sat by Pulse 98 97 98 Oximetry O2 Sat by Pulse Oximetry [ Bilateral] 09/06/21 09/06/21 09/06/21 07:35 07:40 07:45 Pulse Rate 79 67 74 Blood Pressure O2 Sat by Pulse 98 100 97 Oximetry O2 Sat by Pulse Oximetry [ Bilateral] 09/06/21 09/06/21 09/06/21 07:50 07:53 10:11 Pulse Rate 98 H 64 Blood Pressure 122/69 O2 Sat by Pulse 99 Oximetry O2 Sat by Pulse 97 Oximetry [ Bilateral] 09/06/21 09/06/21 09/06/21 10:12 10:17 10:22 Pulse Rate 66 82 78 Blood Pressure O2 Sat by Pulse 100 100 98 Oximetry O2 Sat by Pulse Oximetry [ Bilateral] 09/06/21 09/06/21 09/06/21 10:27 10:32 10:37 Pulse Rate 73 90 90 Blood Pressure O2 Sat by Pulse 98 100 100 Oximetry O2 Sat by Pulse Oximetry [ Bilateral] 09/06/21 09/06/21 09/06/21 10:42 10:47 10:52 Pulse Rate 98 H 90 90 Blood Pressure O2 Sat by Pulse 99 99 98 Oximetry O2 Sat by Pulse Oximetry [ Bilateral] - Exam Cardiovascular: Regular rate Lungs: Normal air movement Abdomen: Present: normal appearance Uterus: Present: normal FHR: category 1 Uterine Contraction Monitor Mode: External Uterine Contraction Pattern: Absent Extremities: normal - Labs Labs: Abnormal Labs 09/03/21 13:00 RDW 12.7 L Seg Neutrophils % 82.2 H Seg Neutrophils # 7.9 H
--- NOTE | 2021-09-06 20:41 | Event Note ---
Date: 09/06/21 Agree with acquisitions assistant exam and note. Cont oral antibx and expectant management for now. NO s/sx of chorin or labor.
[2021-09-07] MEDS: ERYTHROMYCIN BASE 250 MG CAPSULE DR PO SCH ×3 (00:22→17:07)
[2021-09-07] MEDS: AMOXICILLIN 250 MG CAP PO SCH ×3 (00:22→17:07)
[2021-09-07] MEDS: PRENATAL VIT27-FE FUMARATE-FOLIC ACID VIT TAB PO SCH (09:05)
--- NOTE | 2021-09-07 10:26 | Progress Note ---
Assessment and Plan 1. IUP at 30 0/7 weeks gestation s/p BMZ 2. PROM Complete latency antibiotics Monitor for chorioamnionitis , PTL, distress Twice weekly BPP Growth scan q 3 weeks Delivery at 34 0/7 weeks gestation , sooner if indicated Subjective - Subjective Date of service: 09/07/21 Principal diagnosis: PPROM, IUP @30 1/7 Interval history: Denied contractions , bleeding Notes occasional LOF Patient reports: loss of fluid, movement normal, no new complaints, no vaginal bleeding, no contractions Objective - Vital Signs Vital Signs: Vital Signs - 12hr 09/07/21 09/07/21 09/07/21 07:30 09:07 09:09 Pulse Rate 81 81 Respiratory 16 Rate Blood Pressure 125/87 Blood Pressure 125/87 [Right] O2 Sat by Pulse 99 Oximetry O2 Sat by Pulse 99 Oximetry [ Bilateral] - Exam Narrative Exam: sittign in bed eating Abdomen: Present: normal appearance, soft. Absent: distention, tenderness Uterus: Present: normal FHR: auscultation normal Extremities: normal - Labs Labs: Abnormal Labs 09/03/21 13:00 RDW 12.7 L Seg Neutrophils % 82.2 H Seg Neutrophils # 7.9 H - Results US- obstetric: report reviewed (03/02 SO 10)
--- NOTE | 2021-09-07 11:38 | Progress Note ---
Assessment and Plan A: 30 y.o. @ 30.1 wks with PPROM. - Patient Problems (1) Pyelectasis of fetus on ultrasound Current Visit: Yes Status: Acute (2) premature rupture of membranes (PPROM) with unknown onset of labor Current Visit: Yes Status: Acute Plan to address problem: [facility] recommendations: * BMZ: course completed 09/04/2021. * Monitor for s/sx of labor, chorioamnionitis, distress. * Latency IV antibiotics completed. PO ordered on 09/06 and will continue for next 5 days. * Twice weekly BPP, last on 09/05 03/02 with SO of 10, (Next for 09/09). * Growth scan [id number] (last growth scan was 09/03 EFW 1471gms, Next due on September 24). * Deliver at 34 weeks or sooner if distress or chorioamnionitis. (3) with 30 completed weeks gestation Current Visit: Yes Status: Acute Plan to address problem: Continue with q shift NSTs. Continue to monitor for s/sx of distress. Subjective - Subjective Date of service: 09/07/21 Principal diagnosis: PPROM, IUP @30 08/01 Interval history: Pt states that she had " a gush of fluid come out last night." Discussed with patient the plan of care at this time is to have inpatient admission and d elivery at 34 wks. We also discussed serial IOL. Pt denies vaginal bleeding, ctxs. Patient reports: loss of fluid, movement normal, no new complaints, no vaginal bleeding, no contractions Objective - Vital Signs Vital Signs: Vital Signs - 12hr 09/07/21 09/07/21 09/07/21 07:30 09:07 09:09 Pulse Rate 81 81 Respiratory 16 Rate Blood Pressure 125/87 Blood Pressure 125/87 [Right] O2 Sat by Pulse 99 Oximetry O2 Sat by Pulse 99 Oximetry [ Bilateral] - Exam Breasts: deferred Cardiovascular: Regular rate Lungs: Normal air movement Abdomen: Present: normal appearance, soft Vulva: both: normal Uterus: Present: normal (For 30 week gestation. ) FHR: category 1 (Reactive NST. ) Uterine Contraction Monitor Mode: External Uterine Contraction Pattern: Absent - Labs Labs: Abnormal Labs 09/03/21 13:00 RDW 12.7 L Seg Neutrophils % 82.2 H Seg Neutrophils # 7.9 H
[2021-09-08] MEDS: ERYTHROMYCIN BASE 250 MG CAPSULE DR PO SCH ×3 (01:19→17:35)
[2021-09-08] MEDS: AMOXICILLIN 250 MG CAP PO SCH ×3 (01:19→17:35)
[2021-09-08] MEDS: PRENATAL VIT27-FE FUMARATE-FOLIC ACID VIT TAB PO SCH (11:39)
--- NOTE | 2021-09-08 12:07 | Progress Note ---
Assessment and Plan Pt sitting in bed without complaints. POC d/w pt. No questions verbalized. Pt agrees to POC and verbalizes understanding. Plan reviewed per [facility] recommendations: * BMZ: course completed 09/04/2021. * Monitor for s/sx of labor, chorioamnionitis, distress. * Latency IV antibiotics completed. PO ordered on 09/06 and will continue for next 5 days. * Twice weekly BPP, last on 09/05 03/02 with SO of 10, (Next for 09/09). * Growth scan [id number] (last growth scan was 09/03 EFW 1471gms, Next due on September 24). * Deliver at 34 weeks or sooner if distress or chorioamnionitis. - Patient Problems (1) Nuchal fold thickening on ultrasound Current Visit: Yes Status: Acute (2) premature rupture of membranes (PPROM) with unknown onset of labor Current Visit: Yes Status: Acute (3) Pyelectasis of fetus on ultrasound Current Visit: Yes Status: Acute (4) with 30 completed weeks gestation Current Visit: Yes Status: Acute Subjective - Subjective Date of service: 09/08/21 Principal diagnosis: PPROM, IUP @30 09/01 Patient reports: loss of fluid, movement normal, no new complaints, no vaginal bleeding, no contractions Objective - Vital Signs Vital Signs: Vital Signs - 12hr 09/08/21 09/08/21 09/08/21 05:04 05:06 11:26 Temperature 98.2 F Pulse Rate 138 H Blood Pressure 109/62 O2 Sat by Pulse 84 86 Oximetry 09/08/21 09/08/21 11:27 11:30 Temperature Pulse Rate 74 98 H Blood Pressure 121/79 O2 Sat by Pulse 87 Oximetry - Exam Breasts: deferred Cardiovascular: Regular rate Lungs: Normal air movement Abdomen: Present: normal appearance, soft FHR: auscultation normal, category 1 Uterine Contraction Monitor Mode: External Uterine Contraction Pattern: Absent Uterine Tone Measurement Phase: Resting Extremities: normal - Labs Labs: Abnormal Labs 09/03/21 13:00 RDW 12.7 L Seg Neutrophils % 82.2 H Seg Neutrophils # 7.9 H
[2021-09-09] MEDS: ERYTHROMYCIN BASE 250 MG CAPSULE DR PO SCH ×3 (01:00→16:48)
[2021-09-09] MEDS: AMOXICILLIN 250 MG CAP PO SCH ×3 (01:00→16:48)
--- NOTE | 2021-09-09 08:00 | Progress Note ---
Assessment and Plan A: 30 y.o. @ 30.3 wks with PPROM. Maternal tachycardia noted , no s/sx of infection. - Patient Problems (1) Pyelectasis of fetus on ultrasound Current Visit: Yes Status: Acute (2) premature rupture of membranes (PPROM) with unknown onset of labor Current Visit: Yes Status: Acute Plan to address problem: [facility] recommendations: * BMZ: course completed 09/04/2021. * Monitor for s/sx of labor, chorioamnionitis, distress. * Latency IV antibiotics completed. PO ordered on 09/06 and will continue for next 5 days, (currently on day 3). * Twice weekly BPP, last on 09/05 03/02 with SO of 10, (Ordered for today 09/09 @ 0800am). * Growth scan [id number] (last growth scan was 09/03 EFW 1471gms, Next due on September 24). * Deliver at 34 weeks or sooner if distress or chorioamnionitis. Some maternal tachycardia noted. CBC ordered. (3) with 30 completed weeks gestation Current Visit: Yes Status: Acute Plan to address problem: Continue with q shift NSTs. Continue to monitor for s/sx of distress. Subjective - Subjective Date of service: 09/09/21 Principal diagnosis: PPROM ~ approximately 9 days, IUP @30.3 wks Interval history: Pt states that she continues to leak fluids. Pt denies vaginal bleeding, ctxs. There is positive movement. Patient reports: loss of fluid, movement normal, no new complaints, no vaginal bleeding, no contractions Objective - Vital Signs Vital Signs: Vital Signs - 12hr 09/08/21 09/08/21 09/08/21 21:54 21:59 22:04 Temperature Pulse Rate 138 H 120 H 121 H Respiratory Rate Blood Pressure O2 Sat by Pulse 88 99 98 Oximetry 09/08/21 09/08/21 09/08/21 22:09 22:14 22:19 Temperature Pulse Rate 109 H 112 H 111 H Respiratory Rate Blood Pressure O2 Sat by Pulse 99 100 100 Oximetry 09/08/21 09/08/21 09/09/21 23:11 23:12 05:11 Temperature 98.2 F 98.6 F Pulse Rate 107 H 100 H 80 Respiratory 18 18 Rate Blood Pressure 124/59 105/57 O2 Sat by Pulse 96 Oximetry - Exam Narrative Exam: Vital signs reviewed. Pt with some maternal tachycardia noted. Pt has no s/sx of infection. Amniotic fluid continues to be clear. Will order CBC. Type and screen also will be re-drawn d/t it being . Cardiovascular: Regular rate Lungs: Normal air movement Abdomen: Present: normal appearance, soft Uterus: Present: normal FHR: category 1 (NST's have been reactive.) Uterine Contraction Monitor Mode: External Uterine Contraction Pattern: Absent Extremities: normal - Labs Labs: Abnormal Labs 09/03/21 13:00 RDW 12.7 L Seg Neutrophils % 82.2 H Seg Neutrophils # 7.9 H
--- NOTE | 2021-09-09 08:06 | Progress Note ---
Assessment and Plan 1. IUP at 30 2/7 weeks gestation s/p BMZ 2. PROM Monitor for chorioamnionitis , PTL, distress Twice weekly BPP Growth scan q 3 weeks Delivery at 34 0/7 weeks gestation , sooner if indicated 3. Maternal tachycardia: continue to monitor EKG /cardiology consult is recommended if the tachycardia becomes persistent Subjective - Subjective Date of service: 09/09/21 Principal diagnosis: PPROM, IUP @30 2/7 Interval history: She was noted to have tachycardia yesterday She is asymptomatic and denied any chest pain or SOB Notes LOF but denied bleeding, contractions, or abdominal pain Patient reports: loss of fluid, movement normal, no new complaints, no vaginal bleeding, no contractions Objective - Vital Signs Vital Signs: Vital Signs - 12hr 09/08/21 09/08/21 09/08/21 21:54 21:59 22:04 Temperature Pulse Rate 138 H 120 H 121 H Respiratory Rate Blood Pressure O2 Sat by Pulse 88 99 98 Oximetry 09/08/21 09/08/21 09/08/21 22:09 22:14 22:19 Temperature Pulse Rate 109 H 112 H 111 H Respiratory Rate Blood Pressure O2 Sat by Pulse 99 100 100 Oximetry 09/08/21 09/08/21 09/09/21 23:11 23:12 05:11 Temperature 98.2 F 98.6 F Pulse Rate 107 H 100 H 80 Respiratory 18 18 Rate Blood Pressure 124/59 105/57 O2 Sat by Pulse 96 Oximetry - Exam Narrative Exam: laying in bed NAD Abdomen: Present: normal appearance, soft Extremities: normal - Labs Labs: Abnormal Labs 09/03/21 13:00 RDW 12.7 L Seg Neutrophils % 82.2 H Seg Neutrophils # 7.9 H
[2021-09-09] MEDS: PRENATAL VIT27-FE FUMARATE-FOLIC ACID VIT TAB PO SCH (08:18)
[2021-09-09 09:01] LABS: Basophils % (Auto) 0.2 % (0.0-1.8); Eosinophils # (Auto) 0.1 K/mm3 (0.0-0.4); Eosinophils % (Auto) 0.5 % (0.0-4.3); Hematocrit 33.5 % (30.3-42.9); Hemoglobin 11.1 gm/dl (10.1-14.3); Lymphocytes # (Auto) 1.9 K/mm3 (1.2-5.4); Lymphocytes % (Auto) 16.3 % (13.4-35.0); Mean Corpuscular HGB Conc 33 % (30-34); Mean Corpuscular Volume 95 fl (79-97); Monocytes # (Auto) 0.7 K/mm3 (0.0-0.8); Monocytes % (Auto) 5.9 % (0.0-7.3); Platelet Count 206 K/mm3 (140-440); Red Blood Count 3.52 M/mm3 (3.65-5.03)
--- NOTE | 2021-09-09 12:03 | Ultrasound Report ---
ULTRASOUND BIOPHYSICAL PROFILE INDICATION: well being. COMPARISON: None available. FINDINGS: heart rate is 148 beats per minute. breathing movement = 2 Gross body movement = 2 tone = 2 Qualitative amniotic fluid volume = 0 IMPRESSION: biophysical profile = 12/31 Signer Name: Derrick Almanza Jr, MD Signed: 09/09/2021 11:58 AM Workstation Name: [id number]
[2021-09-10] MEDS: AMOXICILLIN 250 MG CAP PO SCH ×4 (00:45→23:36)
[2021-09-10] MEDS: ERYTHROMYCIN BASE 250 MG CAPSULE DR PO SCH ×4 (00:45→23:35)
[2021-09-10] MEDS: PRENATAL VIT27-FE FUMARATE-FOLIC ACID VIT TAB PO SCH (10:00)
--- NOTE | 2021-09-10 12:40 | Progress Note ---
Assessment and Plan Pt resting in bed without complaints. POC d/w pt. No questions verbalized. Pt agrees to POC and verbalizes understanding. Plan reviewed per [facility] recommendations: * BMZ: course completed 09/04/2021. * Monitor for s/sx of labor, chorioamnionitis, distress. * Latency IV antibiotics completed. PO ordered on 09/06 and will continue for 5 days total, to be completed tomorrow * Twice weekly BPP, last on 09/09 12/31, off for SO, (Next ordered for 09/12). * Growth scan [id number] (last growth scan was 09/03 EFW 1471gms, Next ordered on September 24). * Deliver at 34 weeks or sooner if distress or chorioamnionitis. H/O Maternal tachycardia during admission continue to monitor EKG normal sinus rhythm cardiology consult is recommended if the tachycardia becomes persistent - Patient Problems (1) Nuchal fold thickening on ultrasound Current Visit: Yes Status: Acute (2) premature rupture of membranes (PPROM) with unknown onset of labor Current Visit: Yes Status: Acute (3) Pyelectasis of fetus on ultrasound Current Visit: Yes Status: Acute (4) with 30 completed weeks gestation Current Visit: Yes Status: Acute Subjective - Subjective Date of service: 09/10/21 Principal diagnosis: PPROM, IUP @30.4 wks Patient reports: loss of fluid, movement normal, no new complaints, no vaginal bleeding, no contractions Objective - Vital Signs Vital Signs: Vital Signs - 12hr 09/10/21 09/10/21 09/10/21 02:15 04:00 05:28 Temperature 98.3 F 98.2 F 98.1 F Pulse Rate Respiratory Rate Blood Pressure O2 Sat by Pulse Oximetry O2 Sat by Pulse Oximetry [ Bilateral] 09/10/21 09/10/21 09/10/21 08:00 08:25 08:28 Temperature 98.3 F Pulse Rate 88 Respiratory 18 Rate Blood Pressure O2 Sat by Pulse 98 88 Oximetry O2 Sat by Pulse 99 Oximetry [ Bilateral] 09/10/21 09/10/21 09/10/21 08:29 11:59 12:00 Temperature Pulse Rate 76 105 H 108 H Respiratory Rate Blood Pressure 103/50 116/58 O2 Sat by Pulse 96 Oximetry O2 Sat by Pulse Oximetry [ Bilateral] - Exam Breasts: deferred Cardiovascular: Regular rate Lungs: Normal air movement Abdomen: Present: normal appearance, soft. Absent: distention, tenderness, guarding FHR comments: NST qshift Uterine Contraction Monitor Mode: Palpation Uterine Contraction Pattern: Absent Uterine Tone Measurement Phase: Resting Extremities: normal - Labs Labs: Abnormal Labs 09/03/21 09/09/21 13:00 08:45 WBC 11.6 H RBC 3.52 L RDW 12.7 L 13.0 L Seg Neutrophils % 82.2 H 77.1 H Seg Neutrophils # 7.9 H 8.9 H
[2021-09-11] MEDS: AMOXICILLIN 250 MG CAP PO SCH ×3 (07:18→23:42)
[2021-09-11] MEDS: ERYTHROMYCIN BASE 250 MG CAPSULE DR PO SCH ×3 (07:18→23:42)
--- NOTE | 2021-09-11 07:38 | Progress Note ---
Assessment and Plan A: 30 y.o. @ 30.5 wks, PPROM for clear fluid. - Patient Problems (1) Pyelectasis of fetus on ultrasound Current Visit: Yes Status: Acute (2) premature rupture of membranes (PPROM) with unknown onset of labor Current Visit: Yes Status: Acute Plan to address problem: [facility] recommendations: * BMZ: course completed 09/04/2021. * Monitor for s/sx of labor, chorioamnionitis, distress. * Latency IV antibiotics completed. PO ordered on 09/06 and will continue for next 5 days. Today it will be her last day of PO. * Twice weekly BPP, last on 09/09 was 6/8 off for SO, (Ordered 09/12 @ 0800am). * Growth scan [id number] (last growth scan was 09/03 EFW 1471gms, Next due on September 24). * Deliver at 34 weeks or sooner if distress or chorioamnionitis. (3) with 30 completed weeks gestation Current Visit: Yes Status: Acute Plan to address problem: Continue with q shift NSTs. Continue to monitor for s/sx of distress. (4) Tachycardia Current Visit: Yes Status: Acute Plan to address problem: Some maternal tachycardia noted during this admission. Heart rate this AM in the 80's. Normal CBC and EKG on 09/09. Pt asymptomatic. Will continue to monitor. Subjective - Subjective Date of service: 09/11/21 Principal diagnosis: PPROM, IUP @30.5 wks Interval history: Pt states that she continues to leak fluids. Pt denies vaginal bleeding, ctxs. There is positive movement. Maternal tachycardia noted during admission. Patient continues to deny heart palpitations, chest pain, shortness of breath, or feeling lightheaded or dizzy. Patient reports: loss of fluid, movement normal, no new complaints, no vaginal bleeding, no contractions Objective - Vital Signs Vital Signs: Vital Signs - 12hr 09/10/21 09/10/21 09/10/21 20:20 21:58 22:04 Temperature 98.2 F Pulse Rate 93 H 89 Respiratory 18 Rate Blood Pressure 125/72 Blood Pressure 125/72 [Right] O2 Sat by Pulse 99 99 Oximetry O2 Sat by Pulse 99 Oximetry [ Bilateral] - Exam Breasts: deferred Cardiovascular: Regular rate Lungs: Normal air movement Abdomen: Present: normal appearance, soft FHR: category 1 (NST have reactive. No ctxs noted. ) Uterine Contraction Pattern: Absent - Labs Labs: Abnormal Labs 09/03/21 09/09/21 13:00 08:45 WBC 11.6 H RBC 3.52 L RDW 12.7 L 13.0 L Seg Neutrophils % 82.2 H 77.1 H Seg Neutrophils # 7.9 H 8.9 H
--- NOTE | 2021-09-11 08:07 | Progress Note ---
Assessment and Plan 1. IUP at 30 5/7 weeks gestation s/p BMZ 2. PROM s/p latency antibiotics Monitor for chorioamnionitis , PTL, distress Twice weekly BPP Growth scan q 3 weeks Delivery at 34 0/7 weeks gestation , sooner if indicated Subjective - Subjective Principal diagnosis: PPROM, IUP @30.5 wks Interval history: Has no complaints EKG was normal Patient reports: loss of fluid, movement normal, no new complaints, no vaginal bleeding, no contractions Objective - Vital Signs Vital Signs: Vital Signs - 12hr 09/10/21 09/10/21 09/10/21 20:20 21:58 22:04 Temperature 98.2 F Pulse Rate 93 H 89 Respiratory 18 Rate Blood Pressure 125/72 Blood Pressure 125/72 [Right] O2 Sat by Pulse 99 99 Oximetry O2 Sat by Pulse 99 Oximetry [ Bilateral] - Exam Narrative Exam: laying in bed - Labs Labs: Abnormal Labs 09/03/21 09/09/21 13:00 08:45 WBC 11.6 H RBC 3.52 L RDW 12.7 L 13.0 L Seg Neutrophils % 82.2 H 77.1 H Seg Neutrophils # 7.9 H 8.9 H - Results US- obstetric: image reviewed (09/09 BPP 12/31 , -2 MVP<2cm, 4 quad SO not performed)
--- NOTE | 2021-09-11 13:14 | Electrocardiograph Report ---
[facility] Test Date: 2021-09-09 Test Time: 23:22:44 Pat Name: JOSEFA WADE Department: Room: 2004 07 Gender: F Maxillofacial Pathology: ROLA : 1990 Requested By: MANUELITO GUZMAN Order Number: [id number] Reading MD: Corin Martinez Measurements Intervals Penelope Rate: 91 P: 34 TN: 162 QRS: 21 QRSD: 90 T: 23 QT: 365 QTc: 449 Interpretive Statements Sinus rhythm No previous ECG available for comparison Electronically Signed On 09-11-2021 13:13:31 EST by Corin Martinez
[2021-09-11] MEDS: PRENATAL VIT27-FE FUMARATE-FOLIC ACID VIT TAB PO SCH (15:47)
[2021-09-12 08:12] LABS: Hematocrit 34.4 % (30.3-42.9); Hemoglobin 11.2 gm/dl (10.1-14.3); Mean Corpuscular HGB Conc 33 % (30-34); Mean Corpuscular Volume 96 fl (79-97); Platelet Count 197 K/mm3 (140-440); Red Blood Count 3.58 M/mm3 (3.65-5.03); Red Cell Distribution Width 13.6 % (13.2-15.2)
--- NOTE | 2021-09-12 08:15 | Progress Note ---
Assessment and Plan Pt sleeping in bed without new complaints. SO present and supportive at bedside. Pt reports +FM and LOF; denies VB, contractions, chest pain, and SOB. POC d/w pt. Questions encouraged. No questions verbalized. Pt verbalizes understanding and agrees to POC . Plan reviewed per [facility] recommendations: * Continue hospitalization, Deliver at 34 weeks or sooner if distress or chorioamnionitis. * Monitor for s/sx of labor, chorioamnionitis, distress. * BMZ: course completed 09/04/2021. * Latency IV antibiotics and PO antibiotics completed. * Twice weekly BPP, last on 09/09 12/31, off for SO, Next ordered for today * Growth scan [id number] (last growth scan was 09/03 EFW 1471gms, Next ordered on September 24). H/O Maternal tachycardia during admission continue to monitor EKG normal sinus rhythm on 09/11 cardiology consult is recommended by [facility] if the tachycardia becomes persistent - Patient Problems (1) Nuchal fold thickening on ultrasound Current Visit: Yes Status: Acute (2) premature rupture of membranes (PPROM) with unknown onset of labor Current Visit: Yes Status: Acute (3) Pyelectasis of fetus on ultrasound Current Visit: Yes Status: Acute (4) with 30 completed weeks gestation Current Visit: Yes Status: Acute Subjective - Subjective Date of service: 09/12/21 Principal diagnosis: PPROM, IUP @30.6 wks Patient reports: loss of fluid, movement normal, no new complaints, no vaginal bleeding, no contractions Objective - Vital Signs Vital Signs: Vital Signs - 12hr 09/11/21 09/11/21 09/11/21 23:23 23:28 23:33 Temperature Pulse Rate 97 H 101 H 102 H Respiratory Rate Blood Pressure O2 Sat by Pulse 100 98 99 Oximetry 09/11/21 09/11/21 09/11/21 23:38 23:42 23:43 Temperature 99.0 F Pulse Rate 108 H 96 H 105 H Respiratory 20 Rate Blood Pressure 122/69 O2 Sat by Pulse 98 98 Oximetry 09/11/21 09/11/21 09/11/21 23:48 23:53 23:58 Temperature Pulse Rate 109 H 101 H 99 H Respiratory Rate Blood Pressure O2 Sat by Pulse 98 99 99 Oximetry 09/12/21 09/12/2122 00:03 00:08 00:13 Temperature Pulse Rate 103 H 97 H 103 H Respiratory Rate Blood Pressure O2 Sat by Pulse 98 98 98 Oximetry 09/12/21 09/12/21 09/12/21 00:18 00:23 00:28 Temperature Pulse Rate 95 H 96 H 101 H Respiratory Rate Blood Pressure O2 Sat by Pulse 98 98 98 Oximetry 09/12/21 09/12/21 09/12/21 00:33 00:38 00:43 Temperature Pulse Rate 101 H 102 H 99 H Respiratory Rate Blood Pressure O2 Sat by Pulse 98 98 98 Oximetry 09/12/21 09/12/21 09/12/21 00:49 04:51 04:52 Temperature 98.5 F Pulse Rate 110 H 95 H Respiratory 18 Rate Blood Pressure 109/60 O2 Sat by Pulse 65 L 97 Oximetry - Exam Breasts: deferred Lungs: Normal air movement Abdomen: Present: normal appearance, soft. Absent: distention, tenderness, guarding FHR comments: NST qshift Uterine Contraction Monitor Mode: Palpation Uterine Contraction Pattern: Absent Uterine Tone Measurement Phase: Resting Extremities: normal - Labs Labs: Abnormal Labs 09/03/21 09/09/21 13:00 08:45 WBC 11.6 H RBC 3.52 L RDW 12.7 L 13.0 L Seg Neutrophils % 82.2 H 77.1 H Seg Neutrophils # 7.9 H 8.9 H
--- NOTE | 2021-09-12 10:35 | Ultrasound Report ---
ULTRASOUND BIOPHYSICAL PROFILE INDICATION / CLINICAL INFORMATION: well being. COMPARISON: 09/09/2021 FINDINGS: BREATHING MOVEMENT = 2 GROSS BODY MOVEMENT = 2 TONE = 2 QUALITATIVE AMNIOTIC FLUID VOLUME = 2 TOTAL BIOPHYSICAL SCORE = 03/02 PRESENTATION: Cephalic. HEART RATE (beats per minute): 136 IMPRESSION: 1. biophysical profile = 03/02 Signer Name: Ash Banks MD Signed: 09/12/2021 10:30 AM Workstation Name: [email or web address]
[2021-09-12] MEDS: PRENATAL VIT27-FE FUMARATE-FOLIC ACID VIT TAB PO SCH (11:23)
--- NOTE | 2021-09-13 08:30 | Progress Note ---
Assessment and Plan - Patient Problems (1) premature rupture of membranes (PPROM) with unknown onset of labor Current Visit: Yes Status: Acute Plan to address problem: Will continue to follow [facility]: * Continue hospitalization, Deliver at 34 weeks or sooner if distress or chorioamnionitis. * Monitor for s/sx of labor, chorioamnionitis, distress. * BMZ: course completed 09/04/2021. * Latency IV antibiotics and PO antibiotics completed. * Twice weekly BPP, last on 09/12 03/02, off for SO * Growth scan [id number] (last growth scan was 09/03 EFW 1471gms, Next ordered on September 24). (2) Tachycardia Current Visit: Yes Status: Acute Plan to address problem: Intermittent tachycardia Will continue to monitor If tachycardia becomes persistent, Cardiology consult recommended per [facility] Subjective - Subjective Principal diagnosis: PPROM, IUP @30.6 wks Interval history: Patient voices no complaints. +FM. Contractions noted on NST, but patient does no have any pain. Notes continued leakage, but denies vaginal bleeding Patient reports: loss of fluid, movement normal, no new complaints, no vaginal bleeding, no contractions Objective - Vital Signs Vital Signs: Vital Signs - 12hr 09/13/21 09/13/21 09/13/21 00:30 01:15 04:35 Temperature 98.5 F Pulse Rate 103 H 103 H 81 Respiratory 18 18 Rate Blood Pressure 110/57 99/54 Blood Pressure 110/57 99/54 [Right] O2 Sat by Pulse Oximetry 09/13/21 09/13/21 09/13/21 06:40 06:45 06:50 Temperature Pulse Rate 57 L 98 H 97 H Respiratory Rate Blood Pressure Blood Pressure [Right] O2 Sat by Pulse 86 98 98 Oximetry 09/13/21 09/13/21 09/13/21 06:55 07:00 07:05 Temperature Pulse Rate 93 H 94 H 94 H Respiratory Rate Blood Pressure Blood Pressure [Right] O2 Sat by Pulse 99 98 98 Oximetry 09/13/21 09/13/21 09/13/21 07:10 07:15 07:20 Temperature Pulse Rate 96 H 101 H 94 H Respiratory Rate Blood Pressure Blood Pressure [Right] O2 Sat by Pulse 98 97 98 Oximetry 09/13/21 09/13/21 09/13/21 07:25 07:30 07:31 Temperature Pulse Rate 86 87 96 H Respiratory Rate Blood Pressure Blood Pressure [Right] O2 Sat by Pulse 98 96 94 Oximetry 09/13/21 09/13/21 09/13/21 07:35 07:40 07:45 Temperature Pulse Rate 91 H 94 H 92 H Respiratory Rate Blood Pressure Blood Pressure [Right] O2 Sat by Pulse 96 96 95 Oximetry 09/13/21 09/13/21 09/13/21 07:50 07:55 08:00 Temperature Pulse Rate 95 H 105 H 89 Respiratory Rate Blood Pressure Blood Pressure [Right] O2 Sat by Pulse 97 96 97 Oximetry 09/13/21 09/13/21 09/13/21 08:03 08:05 08:24 Temperature 98.4 F Pulse Rate 89 97 H Respiratory 18 Rate Blood Pressure 113/73 Blood Pressure [Right] O2 Sat by Pulse 98 Oximetry - Exam Abdomen: Present: soft FHR: other (Reactive NST) Uterine Contraction Monitor Mode: External Uterine Contraction Pattern: Irregular - Labs Labs: Abnormal Labs 09/03/21 09/09/21 09/12/21 13:00 08:45 07:43 WBC 11.6 H RBC 3.52 L 3.58 L RDW 12.7 L 13.0 L Seg Neutrophils % 82.2 H 77.1 H Seg Neutrophils # 7.9 H 8.9 H Laboratory Results - last 24 hr 09/12/21 09/12/21 07:43 07:43 Syphilis IgG/IgM Ab Nonreactive Blood Type O POSITIVE Antibody Screen Negative
[2021-09-13] MEDS: PRENATAL VIT27-FE FUMARATE-FOLIC ACID VIT TAB PO SCH (10:06)
--- NOTE | 2021-09-14 10:17 | Progress Note ---
Assessment and Plan Assessment/ Recommendations 1. IUP at 31 2/7 weeks gestation s/p BMZ 2. PROM s/p latency antibiotics Monitor for chorioamnionitis , PTL, distress Twice weekly BPP Growth scan q 3 weeks Delivery at 34 0/7 weeks gestation , sooner if indicated Subjective - Subjective Date of service: 09/14/21 Principal diagnosis: PPROM, IUP @30.6 wks Interval history: No complaints. Denies contractions, bleeding or discharge. Reports good movement. Patient reports: loss of fluid, movement normal, no new complaints, no vaginal bleeding, no contractions Objective - Vital Signs Vital Signs: Vital Signs - 12hr 09/14/21 09/14/21 09/14/21 10:00 10:05 10:10 Pulse Rate 105 H 107 H 116 H O2 Sat by Pulse 92 98 98 Oximetry - Exam Abdomen: Present: soft - Labs Labs: Abnormal Labs 09/03/21 09/09/21 09/12/21 13:00 08:45 07:43 WBC 11.6 H RBC 3.52 L 3.58 L RDW 12.7 L 13.0 L Seg Neutrophils % 82.2 H 77.1 H Seg Neutrophils # 7.9 H 8.9 H
--- NOTE | 2021-09-14 11:23 | Progress Note ---
Assessment and Plan - Patient Problems (1) premature rupture of membranes (PPROM) with unknown onset of labor Current Visit: Yes Status: Acute Plan to address problem: Will continue to follow recommendations per [facility]: * Continue hospitalization, Deliver at 34 weeks or sooner if distress or chorioamnionitis. * Monitor for s/sx of labor, chorioamnionitis, distress. * BMZ: course completed 09/04/2021. * Latency IV antibiotics and PO antibiotics completed. * Twice weekly BPP, last on 09/12 03/02 * Growth scan [id number] (last growth scan was 09/03 EFW 1471gms, Next ordered on September 24). (2) Tachycardia Current Visit: Yes Status: Acute Plan to address problem: Tachycardia more persistent, Cardiology consult to be placed as recommended per [facility] Subjective - Subjective Principal diagnosis: PPROM, IUP @30.6 wks Interval history: Patient voices no complaints. +FM. Notes continued leakage, but denies contractions and vaginal bleeding. Denies fevers, chills, chest pain, and SOB. Patient reports: loss of fluid, movement normal, no new complaints, no vaginal bleeding, no contractions Objective - Vital Signs Vital Signs: Vital Signs - 12hr 09/14/21 09/14/21 09/14/21 10:00 10:05 10:10 Pulse Rate 105 H 107 H 116 H O2 Sat by Pulse 92 98 98 Oximetry 09/14/21 09/14/21 09/14/21 10:15 10:20 10:25 Pulse Rate 103 H 107 H 108 H O2 Sat by Pulse 98 97 97 Oximetry 09/14/21 09/14/21 09/14/21 10:30 10:35 10:40 Pulse Rate 105 H 118 H 111 H O2 Sat by Pulse 98 98 98 Oximetry - Exam Lungs: Clear to auscultation Abdomen: Present: soft FHR: category 1 - Labs Labs: Abnormal Labs 09/03/21 09/09/21 09/12/21 13:00 08:45 07:43 WBC 11.6 H RBC 3.52 L 3.58 L RDW 12.7 L 13.0 L Seg Neutrophils % 82.2 H 77.1 H Seg Neutrophils # 7.9 H 8.9 H
[2021-09-14 13:51] LABS: Basophils % (Auto) 0.2 % (0.0-1.8); Eosinophils # (Auto) 0.1 K/mm3 (0.0-0.4); Eosinophils % (Auto) 0.8 % (0.0-4.3); Hematocrit 33.5 % (30.3-42.9); Hemoglobin 11.7 gm/dl (10.1-14.3); Lymphocytes # (Auto) 1.5 K/mm3 (1.2-5.4); Lymphocytes % (Auto) 16.6 % (13.4-35.0); Mean Corpuscular HGB Conc 35 % (30-34); Mean Corpuscular Volume 94 fl (79-97); Monocytes # (Auto) 0.6 K/mm3 (0.0-0.8); Monocytes % (Auto) 6.5 % (0.0-7.3); Platelet Count 201 K/mm3 (140-440); Red Blood Count 3.55 M/mm3 (3.65-5.03); Red Cell Distribution Width 13.2 % (13.2-15.2)
--- NOTE | 2021-09-14 15:53 | Consultation ---
History of Present Illness Consult date: 09/14/21 Consult reason: tachycardia History of present illness: 30-year-old -Citizen Of [place] female presenting with premature rupture of membranes. Cardiology consulted to evaluate asymptomatic tachycardia. Patient denies any chest pain or shortness of breath. Patient denies any past medical history of cardiovascular disease. EKG performed on 2021-09-09 was reviewed and is showing normal sinus rhythm. On examination patient heart rate is at 88 bpm regular rate and rhythm. Patient is not in any acute distress. She is hemodynamically stable. No signs of volume overload on examination. Past History Past Medical History: No medical history Social history: smoking (Former smoker, quit one month before first visit.) Medications and Allergies Allergies Allergy/AdvReac Type Severity Reaction Status Date / Time No Known Allergies Allergy Verified 09/04/21 15:46 Home Medications Medication Instructions Recorded Confirmed Last Taken Type No.137/Iron/Folic Acd 1 tab PO DAILY 09/02/21 09/04/21 09/04/21 History [[facility] Vitamins Tablet] Active Meds: Active Medications Acetaminophen (Acetaminophen 325 Mg Tab) 1,000 mg PO Q6H PRN PRN Reason: Pain MILD(1-3)/Fever >100.5/PARKS Al Hydrox/Mg Hydrox/Simethicone (Alum-Mag Hydroxide-Simethicone 810-504-06ud/5ml Oral Liqd 30 Ml) 30 ml PO Q6H PRN PRN Reason: Indigestion Carboprost Tromethamine (Carboprost Tromethamine 250 Mcg/1 Ml Inj) 250 mcg IM ONCE PRN PRN Reason: Uterine Bleeding Diphenhydramine HCl (Diphenhydramine 25 Mg Cap) 25 mg PO Q6H PRN PRN Reason: Itching Docusate Sodium (Docusate Sodium 100 Mg Cap) 100 mg PO Q12H PRN PRN Reason: Constipation Ephedrine Sulfate (Ephedrine Sulfate 50 Mg/1 Ml Inj) 10 mg IV Q2M PRN PRN Reason: Hypotension Lactated Ringer's (Lactated Ringers) 1,000 mls @ 125 mls/hr IV DIRECT ANNALISA Last Infusion: 09/05/21 14:05 Dose: 0 mls/hr Lactated Ringer's (Lactated Ringers) 1,000 mls @ 125 mls/hr IV DIRECT ANNALISA Last Admin: 09/04/21 12:26 Dose: 125 mls/hr Oxytocin/Sodium Chloride (Pitocin/Ns 30 Unit/500ml) 30 units in 500 mls @ 40 mls/hr IV TITR ANNALISA; Protocol Loperamide HCl (Loperamide 2 Mg Cap) 2 mg PO ONCE PRN PRN Reason: give with Hemabate Magnesium Hydroxide (Magnesium Hydroxide (Mom) Oral Liqd Udc) 30 ml PO QHS PRN PRN Reason: Laxative Effect Methylergonovine Maleate (Methylergonovine Maleate 0.2 Mg/Ml Vial) 0.2 mg IM ONCE PRN PRN Reason: Uterine Bleeding Misoprostol (Misoprostol 200 Mcg Tab) 800 mcg RI ONCE PRN PRN Reason: Uterine Bleeding Multivitamins/Iron/Calcium ( Kuc03-Na Fumarate-Folic Acid Vit Tab) 1 each PO QDAY [facility] Last Admin: 09/13/21 10:06 Dose: 1 each Ondansetron HCl (Ondansetron 4 Mg/2 Ml Inj) 4 mg IV Q6H PRN PRN Reason: Nausea And Vomiting Oxytocin (Oxytocin 10 Unit/1 Ml Inj) 10 unit IM ONCE PRN PRN Reason: Uterine Bleeding Terbutaline Sulfate (Terbutaline 1 Mg/1 Ml Inj) 0.25 mg SUB-Q ONCE PRN PRN Reason: Hyperstimulation/Hypertonicity Review of Systems All systems: negative Physical Examination Vital Signs Temp Pulse Resp BP Pulse Ox 98.5 F 98 H 20 119/77 98 09/03/21 11:24 09/03/21 11:24 09/03/21 11:24 09/03/21 11:24 09/03/21 11:24 General appearance: no acute distress Neck: Positive: neck supple Cardiac: Positive: Reg Rate and Rhythm, Systolic Murmur (Soft systolic murmur noted at the left precordium) Lungs: Positive: Normal Exam Neuro: Positive: Grossly Intact Abdomen: Positive: Soft Extremities: Present: normal Results 09/14/21 13:16 CBC 09/14/21 Range/Units 13:16 WBC 9.3 (4.5-11.0) K/mm3 RBC 3.55 L (3.65-5.03) M/mm3 Hgb 11.7 (10.1-14.3) gm/dl Hct 33.5 (30.3-42.9) % Plt Count 201 (140-440) K/mm3 Lymph # (Auto) 1.5 (1.2-5.4) K/mm3 [place] # (Auto) 0.6 (0.0-0.8) K/mm3 Eos # (Auto) 0.1 (0.0-0.4) K/mm3 Baso # (Auto) 0.0 (0.0-0.1) K/mm3 - EKG Interpretation EKG: sinus rhythm EKG interpretations - Telemetry EKG Rhythm: Sinus Rhythm Assessment and Plan premature rupture of membranes. There is no clinical signs of cardiac disease. Patient is hemodynamically and electrically stable. Twelve-lead EKG is normal. There is a very soft grade 1/6 systolic murmur at the left precordium. We will proceed with an echocardiogram for further evaluation. No further cardiac work-up is needed.
--- NOTE | 2021-09-15 07:37 | Progress Note ---
Assessment and Plan A: 30 y.o. @ 31.2 wks, PPROM ~ 14 days. Clear fluid. Maternal tachycardia. - Patient Problems (1) premature rupture of membranes (PPROM) with unknown onset of labor Current Visit: Yes Status: Acute Plan to address problem: Will continue to follow recommendations per [facility]: * Continue hospitalization, Deliver at 34 weeks or sooner if distress or chorioamnionitis. * Monitor for s/sx of labor, chorioamnionitis, distress. * BMZ: course completed 09/04/2021. * Latency IV antibiotics and PO antibiotics completed. * Twice weekly BPP, last on 09/12 03/02. Next ordered for 09/16/21. * Growth scan [id number] (last growth scan was 09/03 EFW 1471gms, Next ordered on September 24). * Continue to monitor maternal temperature: pt remains afebrile. (2) Tachycardia Current Visit: Yes Status: Acute Plan to address problem: Pt with continued maternal tachycardia. EKG and Labs from 09/11 normal. Cardiology consult completed. - They will continue to monitor. (3) 31 to 32 weeks gestation of Current Visit: Yes Status: Acute Plan to address problem: Continue to monitor status through NSTs. . Subjective - Subjective Date of service: 09/15/21 Principal diagnosis: PPROM, IUP @31.2 wks Patient reports: loss of fluid, movement normal, no new complaints, no vaginal bleeding, no contractions Objective - Vital Signs Vital Signs: Vital Signs - 12hr 09/14/21 09/14/21 09/14/21 20:11 20:12 20:15 Temperature 98.9 F Pulse Rate 104 H 54 L 104 H Respiratory 16 Rate Blood Pressure 118/72 Blood Pressure 118/72 [Right] O2 Sat by Pulse 39 L 70 L 98 Oximetry O2 Sat by Pulse 98 Oximetry [ Bilateral] 09/14/21 09/14/21 09/14/21 21:42 21:45 23:48 Temperature Pulse Rate 81 99 H 90 Respiratory Rate Blood Pressure Blood Pressure [Right] O2 Sat by Pulse 92 100 98 Oximetry O2 Sat by Pulse Oximetry [ Bilateral] 09/14/21 09/14/21 09/15/21 23:53 23:58 00:03 Temperature Pulse Rate 103 H 100 H 108 H Respiratory Rate Blood Pressure Blood Pressure [Right] O2 Sat by Pulse 98 98 97 Oximetry O2 Sat by Pulse Oximetry [ Bilateral] 09/15/21 09/15/21 09/15/21 00:08 00:13 00:18 Temperature Pulse Rate 105 H 105 H 95 H Respiratory Rate Blood Pressure Blood Pressure [Right] O2 Sat by Pulse 97 97 97 Oximetry O2 Sat by Pulse Oximetry [ Bilateral] 09/15/21 09/15/21 09/15/21 00:23 00:28 00:33 Temperature Pulse Rate 105 H 103 H 100 H Respiratory Rate Blood Pressure Blood Pressure [Right] O2 Sat by Pulse 97 97 97 Oximetry O2 Sat by Pulse Oximetry [ Bilateral] 09/15/21 09/15/21 09/15/21 05:30 05:31 05:33 Temperature 98.6 F Pulse Rate 94 H 94 H 99 H Respiratory 16 Rate Blood Pressure 104/65 Blood Pressure 104/65 [Right] O2 Sat by Pulse 99 99 Oximetry O2 Sat by Pulse Oximetry [ Bilateral] - Exam Breasts: deferred Cardiovascular: Regular rate Lungs: Normal air movement Abdomen: Present: normal appearance, soft Uterus: Present: normal (For 31 wks gestation) FHR: category 1 Uterine Contraction Monitor Mode: External Uterine Contraction Pattern: Absent - Labs Labs: Abnormal Labs 09/03/21 09/09/21 09/12/21 13:00 08:45 07:43 WBC 11.6 H RBC 3.52 L 3.58 L MCH MCHC RDW 12.7 L 13.0 L Seg Neutrophils % 82.2 H 77.1 H Seg Neutrophils # 7.9 H 8.9 H 09/14/21 13:16 WBC RBC 3.55 L MCH 33 H MCHC 35 H RDW Seg Neutrophils % 75.9 H Seg Neutrophils # Laboratory Results - last 24 hr 09/14/21 09/14/21 13:16 13:16 WBC 9.3 RBC 3.55 L Hgb 11.7 Hct 33.5 MCV 94 MCH 33 H MCHC 35 H RDW 13.2 Plt Count 201 Lymph % (Auto) 16.6 [place] % (Auto) 6.5 Eos % (Auto) 0.8 Baso % (Auto) 0.2 Lymph # (Auto) 1.5 [place] # (Auto) 0.6 Eos # (Auto) 0.1 Baso # (Auto) 0.0 Seg Neutrophils % 75.9 H Seg Neutrophils # 7.0 TSH 1.180
[2021-09-15] MEDS: PRENATAL VIT27-FE FUMARATE-FOLIC ACID VIT TAB PO SCH (10:49)
--- NOTE | 2021-09-16 07:52 | Progress Note ---
Assessment and Plan 30y/o @ 31.3 weeks. PPROM ~15days. Maternal tachycardia with abnormal maternal ECHO. Cardiology following. No ABD tenderness, no foul smelling fluid, or fever. Will continue to follow recommendations per [facility]: * Continue hospitalization, Deliver at 34 weeks or sooner if distress or chorioamnionitis. * Monitor for s/sx of labor, chorioamnionitis, distress. * BMZ: course completed 09/04/2021. * Latency IV antibiotics and PO antibiotics completed. * Twice weekly BPP, last on 09/12 03/02. Next ordered for today. * Growth scan [id number] (last growth scan was 09/03 EFW 1471gms, Next ordered on September 24). * Continue to monitor maternal temperature. - Patient Problems (1) Nuchal fold thickening on ultrasound Current Visit: Yes Status: Acute (2) premature rupture of membranes (PPROM) with unknown onset of labor Current Visit: Yes Status: Acute (3) Pyelectasis of fetus on ultrasound Current Visit: Yes Status: Acute (4) Tachycardia Current Visit: Yes Status: Acute Plan to address problem: Pt with continued intermittent maternal tachycardia. EKG and Labs from 09/11 normal. Cardiology consult completed. -they will continue to monitor (5) 31 weeks gestation of Current Visit: Yes Status: Acute Plan to address problem: q shift NSTs (6) Abnormal echocardiogram Current Visit: Yes Status: Acute Plan to address problem: Abnl maternal echo O2 sat <96% reported earlier this am * continuous pulse O2 * Initiation of O2 therapy is advised if maternal hypoxia persists Awaiting recommendations from cardiology - Subjective - Subjective Date of service: 09/16/21 Principal diagnosis: PPROM, IUP @31.3 wks Patient reports: loss of fluid, movement normal, no new complaints, no vaginal bleeding, no contractions Objective - Vital Signs Vital Signs: Vital Signs - 12hr 09/15/21 09/15/21 09/15/21 21:34 21:35 21:36 Temperature Pulse Rate 41 L 107 H Respiratory Rate Blood Pressure 120/77 O2 Sat by Pulse 85 91 Oximetry 09/15/21 09/16/21 09/16/21 21:50 05:02 05:06 Temperature 98.9 F Pulse Rate 87 113 H Respiratory 15 Rate Blood Pressure 97/53 O2 Sat by Pulse 96 Oximetry 09/16/21 09/16/21 09/16/21 05:11 05:12 05:16 Temperature Pulse Rate 96 H 114 H 103 H Respiratory Rate Blood Pressure O2 Sat by Pulse 96 94 94 Oximetry 09/16/21 09/16/21 09/16/21 05:18 05:21 05:26 Temperature Pulse Rate 104 H 99 H 98 H Respiratory Rate Blood Pressure O2 Sat by Pulse 94 94 93 Oximetry 09/16/21 09/16/21 09/16/21 05:28 05:31 05:36 Temperature Pulse Rate 98 H 106 H 101 H Respiratory Rate Blood Pressure O2 Sat by Pulse 94 99 98 Oximetry 09/16/21 09/16/21 09/16/21 05:41 05:46 05:51 Temperature Pulse Rate 112 H 104 H 101 H Respiratory Rate Blood Pressure O2 Sat by Pulse 98 99 96 Oximetry 09/16/21 09/16/21 09/16/21 05:58 05:59 06:15 Temperature 98.0 F Pulse Rate 169 H Respiratory 14 Rate Blood Pressure O2 Sat by Pulse 83 L 82 L Oximetry - Exam Breasts: normal Abdomen: Present: normal appearance, soft Uterus: Present: normal, other (gravid) Uterine Contraction Monitor Mode: Palpation Uterine Tone Measurement Phase: Resting - Labs Labs: Abnormal Labs 09/03/21 09/09/21 09/12/21 13:00 08:45 07:43 WBC 11.6 H RBC 3.52 L 3.58 L MCH MCHC RDW 12.7 L 13.0 L Seg Neutrophils % 82.2 H 77.1 H Seg Neutrophils # 7.9 H 8.9 H 09/14/21 13:16 WBC RBC 3.55 L MCH 33 H MCHC 35 H RDW Seg Neutrophils % 75.9 H Seg Neutrophils #
--- NOTE | 2021-09-16 08:01 | Progress Note ---
Assessment and Plan 1. IUP at 31 3/7 s/p BMZ 2. PROM s/p latency antibiotics Monitor for chorioamnionitis , PTL, distress Twice weekly BPP Growth scan q 3 weeks Delivery at 34 0/7 weeks gestation , sooner if indicated 3. Abnl maternal echo - O2 sat <96% reported earlier this am for continuous pulse O2 Initiation of O2 therapy is advised if maternal hypoxia persists Awaiting recommendations from cardiology - Subjective - Subjective Date of service: 09/16/21 Principal diagnosis: PPROM, IUP @31.3 wks Interval history: Has no complaints Denies chest pain, SOB, palpitations S/p cardiology consult Echo report reviewed - EF 40-45% Patient reports: loss of fluid, movement normal, no new complaints, no vaginal bleeding, no contractions Objective - Vital Signs Vital Signs: Vital Signs - 12hr 09/15/21 09/15/21 09/15/21 21:34 21:35 21:36 Temperature Pulse Rate 41 L 107 H Respiratory Rate Blood Pressure 120/77 O2 Sat by Pulse 85 91 Oximetry 09/15/21 09/16/21 09/16/21 21:50 05:02 05:06 Temperature 98.9 F Pulse Rate 87 113 H Respiratory 15 Rate Blood Pressure 97/53 O2 Sat by Pulse 96 Oximetry 09/16/21 09/16/21 09/16/21 05:11 05:12 05:16 Temperature Pulse Rate 96 H 114 H 103 H Respiratory Rate Blood Pressure O2 Sat by Pulse 96 94 94 Oximetry 09/16/21 09/16/21 09/16/21 05:18 05:21 05:26 Temperature Pulse Rate 104 H 99 H 98 H Respiratory Rate Blood Pressure O2 Sat by Pulse 94 94 93 Oximetry 09/16/21 09/16/21 09/16/21 05:28 05:31 05:36 Temperature Pulse Rate 98 H 106 H 101 H Respiratory Rate Blood Pressure O2 Sat by Pulse 94 99 98 Oximetry 09/16/21 09/16/21 09/16/21 05:41 05:46 05:51 Temperature Pulse Rate 112 H 104 H 101 H Respiratory Rate Blood Pressure O2 Sat by Pulse 98 99 96 Oximetry 09/16/21 09/16/21 09/16/21 05:58 05:59 06:15 Temperature 98.0 F Pulse Rate 169 H Respiratory 14 Rate Blood Pressure O2 Sat by Pulse 83 L 82 L Oximetry - Exam Narrative Exam: laying in bed NAD Abdomen: Present: soft - Labs Labs: Abnormal Labs 09/03/21 09/09/21 09/12/21 13:00 08:45 07:43 WBC 11.6 H RBC 3.52 L 3.58 L MCH MCHC RDW 12.7 L 13.0 L Seg Neutrophils % 82.2 H 77.1 H Seg Neutrophils # 7.9 H 8.9 H 09/14/21 13:16 WBC RBC 3.55 L MCH 33 H MCHC 35 H RDW Seg Neutrophils % 75.9 H Seg Neutrophils #
[2021-09-16] MEDS: PRENATAL VIT27-FE FUMARATE-FOLIC ACID VIT TAB PO SCH (10:46)
--- NOTE | 2021-09-16 11:29 | Progress Note ---
Assessment and Plan - Patient Problems (1) Tachycardia Current Visit: Yes Status: Acute Plan to address problem: Patient reported with transient, mild sinus tachycardia in the setting of labor. This is her first . Echocardiogram shows mild left ventricular systolic dysfunction with ejection fraction about 45%. No prior cardiac history. I have reassured the patient that tachycardia is a physiologic response to the current stress of her labor. The mild cardiomyopathy will be followed conservatively and echocardiogram will be repeated in about 8 weeks in the non state. Recommendations for empiric treatment include hydralazine 25 mg twice daily and metoprolol succinate 25 mg daily. These can be started post delivery. Otherwise conservative cardiac management and follow-up. Subjective Date of service: 09/16/21 Principal diagnosis: PPROM, IUP @31.3 wks Interval history: The patient is comfortable, no cardiac complaints, no acute distress. Current heart rate is 96, blood pressure 122 systolic. Objective Vital Signs Temp Pulse Resp BP Pulse Ox Pulse Ox 09/16/21 11:27 82 97 09/16/21 11:22 87 96 09/16/21 11:17 109 H 96 09/16/21 11:12 99 H 97 09/16/21 11:07 105 H 97 09/16/21 11:02 100 H 98 09/16/21 10:57 110 H 98 09/16/21 10:52 94 H 99 09/16/21 10:48 97 09/16/21 10:47 120 H 98 09/16/21 10:42 112 H 98 09/16/21 10:37 107 H 98 09/16/21 10:32 107 H 99 09/16/21 10:23 96 H 99 09/16/21 10:18 104 H 98 09/16/21 10:14 99 H 122/82 09/16/21 10:13 98 H 98 09/16/21 10:08 101 H 99 09/16/21 10:03 110 H 98 09/16/21 10:00 98.3 F 105 H 09/16/21 09:58 116 H 99 09/16/21 09:53 100 H 98 09/16/21 09:48 99 H 98 09/16/21 09:43 101 H 98 09/16/21 09:38 115 H 99 09/16/21 09:33 99 H 97 09/16/21 09:28 104 H 99 09/16/21 09:23 100 H 97 09/16/21 09:18 109 H 99 09/16/21 09:13 99 H 100 09/16/21 09:08 108 H 99 09/16/21 09:03 109 H 100 09/16/21 08:58 107 H 98 09/16/21 08:53 108 H 98 09/16/21 08:48 99 H 99 09/16/21 08:43 108 H 100 09/16/21 08:42 114 H 89 09/16/21 08:31 94 H 97 09/16/21 08:26 97 H 98 09/16/21 08:21 95 H 97 09/16/21 08:16 92 H 98 09/16/21 08:11 38 L 84 09/16/21 06:15 98.0 F 14 09/16/21 05:59 169 H 82 L 09/16/21 05:58 83 L 09/16/21 05:51 101 H 96 09/16/21 05:46 104 H 99 09/16/21 05:41 112 H 98 09/16/21 05:36 101 H 98 09/16/21 05:31 106 H 99 09/16/21 05:28 98 H 94 09/16/21 05:26 98 H 93 09/16/21 05:21 99 H 94 09/16/21 05:18 104 H 94 09/16/21 05:16 103 H 94 09/16/21 05:12 114 H 94 09/16/21 05:11 96 H 96 09/16/21 05:06 113 H 96 09/16/21 05:02 87 97/53 09/15/21 21:50 98.9 F 15 09/15/21 21:36 91 09/15/21 21:35 107 H 120/77 09/15/21 21:34 41 L 85 09/15/21 17:43 109 H 99 09/15/21 17:38 111 H 99 09/15/21 17:33 111 H 99 09/15/21 17:28 105 H 98 09/15/21 17:23 104 H 100 09/15/21 17:18 105 H 99 09/15/21 17:13 110 H 98 09/15/21 17:08 107 H 99 09/15/21 17:03 114 H 99 09/15/21 16:58 103 H 98 09/15/21 16:53 110 H 99 09/15/21 16:48 63 82 L - Physical Examination General: No Apparent Distress HEENT: Positive: PERRL Neck: Positive: neck supple Cardiac: Positive: Reg Rate and Rhythm Lungs: Positive: clear to auscultation Neuro: Positive: Grossly Intact Abdomen: Positive: Distended (Normal ) Skin: Positive: Clear Extremities: Absent: edema
--- NOTE | 2021-09-16 12:44 | Ultrasound Report ---
ULTRASOUND BIOPHYSICAL PROFILE INDICATION / CLINICAL INFORMATION: Well being. Clinical Gestational Age (GA) in weeks, days: 31 weeks 3 days TECHNIQUE: Transabdominal. COMPARISON: biophysical profile 09/13/2021. FINDINGS: BREATHING MOVEMENT = 2 GROSS BODY MOVEMENT = 2 TONE = 2 QUALITATIVE AMNIOTIC FLUID VOLUME = 2 TOTAL BIOPHYSICAL SCORE = 8/8 HEART RATE (beats per minute): 159 bpm PRESENTATION: Cephalic. IMPRESSION: Biophysical Score = 8/8 Scribed by: Lore Graham RDMS, ABHISHEK, ZENAIDA Scribed: 09/16/2021 11:17 AM I have reviewed the images, agree with this report, and edited this report as needed. Signer Name: Martir Hastings MD Signed: 09/16/2021 12:40 PM Workstation Name: [id number]
--- NOTE | 2021-09-16 19:48 | Event Note ---
Date: 09/16/21 new dx Cardiomyopathy by cardiology based on echo. Dr. Mojica aware, she will [employer] guidance [employer] patient on risks and planning for future pregnancies. o2 sats normal, pulse 90's -110's.
--- NOTE | 2021-09-17 08:00 | Progress Note ---
Assessment and Plan - Patient Problems (1) premature rupture of membranes (PPROM) with unknown onset of labor Current Visit: Yes Status: Acute Plan to address problem: Has completed IV and PO course of antibiotics. BMZ completed on 09/04. Continue to monitor maternal and status. Pt remains afebrile. Continue to monitor temperature. Plan to delivery on 34 or sooner if distress or chorioamnionitis develops (2) Tachycardia Current Visit: Yes Status: Acute Plan to address problem: Mild cardiomyopathy noted. Cardiology recommendations: - Follow up post delivery. - Initiate empiric treatment of hydralazine 25 mg twice daily and metoprolol succinate 25 mg daily after delivery. (3) 31 to 32 weeks gestation of Current Visit: Yes Status: Acute Plan to address problem: Continue to monitor status through EFM. Growth u/s ordered for September 24. - Last completed on 09/03, 1471 gms. BPP twice weekly: Last completed on 09/16 03/02. - Next ordered for 09/19 and 09/23. Subjective - Subjective Date of service: 09/17/21 Principal diagnosis: PPROM, IUP @31.4 wks Interval history: Pt states that she continues to leak fluids. Pt denies vaginal bleeding, ctxs. There is positive movement. Maternal tachycardia noted during admission. Patient continues to deny heart palpitations, chest pain, shortness of breath, or feeling lightheaded or dizzy. Patient reports: loss of fluid, movement normal, no new complaints, no vaginal bleeding, no contractions Objective - Vital Signs Vital Signs: Vital Signs - 12hr 09/16/21 09/16/21 09/16/21 20:02 20:07 20:12 Temperature Pulse Rate 111 H 104 H 114 H Respiratory Rate Blood Pressure Blood Pressure [Right] O2 Sat by Pulse 98 98 84 Oximetry 09/16/21 09/16/21 09/16/21 20:14 20:20 20:53 Temperature Pulse Rate 29 L Respiratory Rate Blood Pressure Blood Pressure [Right] O2 Sat by Pulse 84 0 L 69 L Oximetry 09/16/21 09/16/21 09/16/21 20:55 20:59 21:06 Temperature Pulse Rate 117 H 67 201 H Respiratory Rate Blood Pressure Blood Pressure [Right] O2 Sat by Pulse 98 79 L 0 L Oximetry 09/16/21 09/16/21 09/16/21 21:16 21:20 21:21 Temperature Pulse Rate 159 H 49 L Respiratory Rate Blood Pressure Blood Pressure [Right] O2 Sat by Pulse 81 L 75 L 60 L Oximetry 09/16/21 09/16/21 09/16/21 21:26 21:31 21:37 Temperature Pulse Rate 133 H 146 H Respiratory Rate Blood Pressure Blood Pressure [Right] O2 Sat by Pulse 54 L 60 L 54 L Oximetry 09/16/21 09/16/21 09/16/21 21:38 21:46 22:00 Temperature Pulse Rate 135 H 68 Respiratory Rate Blood Pressure Blood Pressure [Right] O2 Sat by Pulse 61 L 38 L 69 L Oximetry 09/16/21 09/16/21 09/16/21 22:08 22:33 22:34 Temperature Pulse Rate 116 H Respiratory Rate Blood Pressure Blood Pressure [Right] O2 Sat by Pulse 57 L 20 L 85 Oximetry 09/16/21 09/16/21 09/16/21 22:39 22:44 22:49 Temperature Pulse Rate 117 H 113 H 111 H Respiratory Rate Blood Pressure Blood Pressure [Right] O2 Sat by Pulse 98 98 99 Oximetry 09/16/21 09/16/21 09/16/21 22:54 22:59 23:04 Temperature Pulse Rate 113 H 111 H 109 H Respiratory Rate Blood Pressure Blood Pressure [Right] O2 Sat by Pulse 96 96 98 Oximetry 09/16/21 09/16/21 09/16/21 23:09 23:10 23:11 Temperature 98.9 F Pulse Rate 97 H 101 H 90 Respiratory 20 Rate Blood Pressure 124/71 Blood Pressure 124/71 [Right] O2 Sat by Pulse 99 100 Oximetry 09/16/21 09/16/21 09/16/21 23:14 23:20 23:24 Temperature Pulse Rate 109 H 115 H 110 H Respiratory Rate Blood Pressure Blood Pressure [Right] O2 Sat by Pulse 100 99 99 Oximetry 09/16/21 09/16/21 09/16/21 23:29 23:35 23:39 Temperature Pulse Rate 112 H 105 H 110 H Respiratory Rate Blood Pressure Blood Pressure [Right] O2 Sat by Pulse 98 99 99 Oximetry 09/16/21 09/16/21 09/16/21 23:46 23:51 23:57 Temperature Pulse Rate 102 H Respiratory Rate Blood Pressure Blood Pressure [Right] O2 Sat by Pulse 76 L 84 82 L Oximetry 09/17/21 09/17/21 09/17/21 00:00 00:02 00:07 Temperature Pulse Rate 45 L Respiratory Rate Blood Pressure Blood Pressure [Right] O2 Sat by Pulse 82 L 84 85 Oximetry 09/17/21 09/17/21 09/17/21 00:08 00:12 00:17 Temperature Pulse Rate 123 H 53 L Respiratory Rate Blood Pressure Blood Pressure [Right] O2 Sat by Pulse 84 90 78 L Oximetry 09/17/21 09/17/21 09/17/21 00:23 03:48 03:51 Temperature 98.6 F Pulse Rate 120 H 90 Respiratory 18 Rate Blood Pressure 91/53 Blood Pressure 91/53 [Right] O2 Sat by Pulse 90 99 37 L Oximetry 09/17/21 09/17/21 09/17/21 03:52 03:57 04:02 Temperature Pulse Rate 135 H 89 90 Respiratory Rate Blood Pressure Blood Pressure [Right] O2 Sat by Pulse 84 95 97 Oximetry 09/17/21 09/17/21 09/17/21 04:07 04:12 04:17 Temperature Pulse Rate 90 87 93 H Respiratory Rate Blood Pressure Blood Pressure [Right] O2 Sat by Pulse 97 98 98 Oximetry 09/17/21 09/17/21 09/17/21 04:22 04:27 04:32 Temperature Pulse Rate 80 90 102 H Respiratory Rate Blood Pressure Blood Pressure [Right] O2 Sat by Pulse 98 98 95 Oximetry 09/17/21 09/17/21 09/17/21 04:37 04:42 04:47 Temperature Pulse Rate 95 H 92 H 115 H Respiratory Rate Blood Pressure Blood Pressure [Right] O2 Sat by Pulse 97 96 97 Oximetry 09/17/21 09/17/21 09/17/21 04:52 04:57 05:02 Temperature Pulse Rate 89 97 H 99 H Respiratory Rate Blood Pressure Blood Pressure [Right] O2 Sat by Pulse 98 98 97 Oximetry 09/17/21 09/17/21 09/17/21 05:07 05:12 05:17 Temperature Pulse Rate 99 H 97 H 97 H Respiratory Rate Blood Pressure Blood Pressure [Right] O2 Sat by Pulse 96 96 98 Oximetry 09/17/21 09/17/21 09/17/21 05:22 05:27 05:32 Temperature Pulse Rate 98 H 127 H 84 Respiratory Rate Blood Pressure Blood Pressure [Right] O2 Sat by Pulse 97 96 96 Oximetry 09/17/21 09/17/21 09/17/21 05:37 05:42 05:44 Temperature Pulse Rate 75 84 86 Respiratory Rate Blood Pressure Blood Pressure [Right] O2 Sat by Pulse 94 94 93 Oximetry 09/17/21 09/17/21 09/17/21 05:47 05:49 05:52 Temperature Pulse Rate 89 83 89 Respiratory Rate Blood Pressure Blood Pressure [Right] O2 Sat by Pulse 95 94 94 Oximetry 09/17/21 09/17/21 09/17/21 05:57 05:58 06:02 Temperature Pulse Rate 91 H 89 99 H Respiratory Rate Blood Pressure Blood Pressure [Right] O2 Sat by Pulse 95 94 95 Oximetry 09/17/21 09/17/21 09/17/21 06:04 06:07 06:11 Temperature Pulse Rate 90 78 88 Respiratory Rate Blood Pressure Blood Pressure [Right] O2 Sat by Pulse 94 95 94 Oximetry 09/17/21 09/17/21 09/17/21 06:12 06:16 06:17 Temperature Pulse Rate 91 H 42 L 44 L Respiratory Rate Blood Pressure Blood Pressure [Right] O2 Sat by Pulse 94 82 L 0 L Oximetry 09/17/21 09/17/21 09/17/21 06:22 06:27 06:28 Temperature Pulse Rate 64 104 H Respiratory Rate Blood Pressure Blood Pressure [Right] O2 Sat by Pulse 86 82 L 74 L Oximetry 09/17/21 09/17/21 09/17/21 06:33 06:38 06:43 Temperature Pulse Rate 97 H 80 47 L Respiratory Rate Blood Pressure Blood Pressure [Right] O2 Sat by Pulse 74 L 91 74 L Oximetry 09/17/21 09/17/21 09/17/21 06:48 06:53 06:58 Temperature Pulse Rate 34 L 38 L 35 L Respiratory Rate Blood Pressure Blood Pressure [Right] O2 Sat by Pulse 76 L 77 L 77 L Oximetry 09/17/21 09/17/21 09/17/21 07:03 07:08 07:13 Temperature Pulse Rate 39 L 39 L 36 L Respiratory Rate Blood Pressure Blood Pressure [Right] O2 Sat by Pulse 75 L 74 L 75 L Oximetry 09/17/21 09/17/21 09/17/21 07:18 07:23 07:51 Temperature Pulse Rate 36 L 50 L 125 H Respiratory Rate Blood Pressure Blood Pressure [Right] O2 Sat by Pulse 73 L 69 L 75 L Oximetry 09/17/21 09/17/21 07:55 07:57 Temperature Pulse Rate 83 101 H Respiratory Rate Blood Pressure Blood Pressure [Right] O2 Sat by Pulse 99 93 Oximetry - Exam Narrative Exam: Tachycardia continues. 90's-120's noted. Breasts: deferred Cardiovascular: Normal S1, Normal S2 Lungs: Clear to auscultation Abdomen: Present: normal appearance, soft Uterus: Present: normal FHR: category 1 (NST's have been reactive.) Uterine Contraction Monitor Mode: External Uterine Contraction Pattern: Absent Extremities: normal - Labs Labs: Abnormal Labs 09/03/21 09/09/21 09/12/21 13:00 08:45 07:43 WBC 11.6 H RBC 3.52 L 3.58 L MCH MCHC RDW 12.7 L 13.0 L Seg Neutrophils % 82.2 H 77.1 H Seg Neutrophils # 7.9 H 8.9 H 09/14/21 13:16 WBC RBC 3.55 L MCH 33 H MCHC 35 H RDW Seg Neutrophils % 75.9 H Seg Neutrophils #
[2021-09-17] MEDS: PRENATAL VIT27-FE FUMARATE-FOLIC ACID VIT TAB PO SCH (09:01)
--- NOTE | 2021-09-18 07:33 | Progress Note ---
Assessment and Plan 30y/o @ 31.5 weeks. PPROM ~17days. Maternal tachycardia with cardiomyopathy. Cardiology following. No ABD tenderness, no foul smelling fluid, or fever. Will continue to follow recommendations per [facility]: * Continue hospitalization, Deliver at 34 weeks or sooner if distress or chorioamnionitis. * Monitor for s/sx of labor, chorioamnionitis, distress. * BMZ: course completed 09/04/2021. * Latency IV antibiotics and PO antibiotics completed. * Twice weekly BPP, last on 09/16 12/31 (off for SO). Next ordered for 09/19/21. * Growth scan [id number] (last growth scan was 09/03 EFW 1471gms, Next ordered on September 24). * Continue to monitor maternal temperature. - Patient Problems (1) Nuchal fold thickening on ultrasound Current Visit: Yes Status: Acute (2) premature rupture of membranes (PPROM) with unknown onset of labor Current Visit: Yes Status: Acute (3) Pyelectasis of fetus on ultrasound Current Visit: Yes Status: Acute (4) Tachycardia Current Visit: Yes Status: Acute Plan to address problem: Pt with continued intermittent maternal tachycardia. EKG and Labs from 09/11 normal. 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 Cardiology recommendations: - Follow up post delivery. - Initiate empiric treatment of hydralazine 25 mg twice daily and metoprolol succinate 25 mg daily after delivery. Subjective - Subjective Date of service: 09/18/21 Principal diagnosis: PPROM, IUP @31.5 wks; Cardiomyopathy Patient reports: loss of fluid, movement normal, no new complaints, no vag inal bleeding, no contractions Objective - Vital Signs Vital Signs: Vital Signs - 12hr 09/17/21 09/17/21 09/17/21 19:34 20:43 20:46 Pulse Rate 106 H Blood Pressure 111/68 O2 Sat by Pulse 91 Oximetry O2 Sat by Pulse 99 Oximetry [ Bilateral] 0209/17/21 09/17/21 20:48 20:53 20:58 Pulse Rate 116 H 106 H 105 H Blood Pressure O2 Sat by Pulse 97 98 97 Oximetry O2 Sat by Pulse Oximetry [ Bilateral] 09/17/21 09/17/21 09/17/21 21:03 21:08 21:13 Pulse Rate 100 H 99 H 101 H Blood Pressure O2 Sat by Pulse 98 97 97 Oximetry O2 Sat by Pulse Oximetry [ Bilateral] - Exam Breasts: normal Cardiovascular: Regular rate Lungs: Normal air movement Abdomen: Present: normal appearance, soft. Absent: tenderness Uterus: Present: normal, fundal height above umbilicus Uterine Contraction Monitor Mode: Palpation Uterine Tone Measurement Phase: Resting Extremities: normal - Labs Labs: Abnormal Labs 09/03/21 09/09/21 09/12/21 13:00 08:45 07:43 WBC 11.6 H RBC 3.52 L 3.58 L MCH MCHC RDW 12.7 L 13.0 L Seg Neutrophils % 82.2 H 77.1 H Seg Neutrophils # 7.9 H 8.9 H 09/14/21 13:16 WBC RBC 3.55 L MCH 33 H MCHC 35 H RDW Seg Neutrophils % 75.9 H Seg Neutrophils #
--- NOTE | 2021-09-18 08:22 | Progress Note ---
Assessment and Plan A 1: IUP at 31 5/7 weeks gestation EFW 1471gm 09/03 s/p BMZ 09/04 2. PROM s/p latency antibiotics Continue to monitor for chorioamnionitis, labor, distress Continue twice weekly testing , growth scan q 3 weeks Delivery is advised at 34 0/7wks gestation 3. 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 - Initiate empiric treatment of hydralazine 25 mg twice daily and metoprolol succinate 25 mg daily after delivery. Pt and partner advised of the increased maternal morbidity and morbidity associated with the condition Reviewed the need for close surveillance with cardiology to monitor for resolution , recurrence with each subsequent , need for cardiac clearance prior to her next conception, avoidance of further pregnancies if her cardiomyopathy has not resolved. Subjective - Subjective Date of service: 09/18/21 Principal diagnosis: PPROM, IUP @31.5 wks; Cardiomyopathy Interval history: Denies chest pain, SOB, palpitations , contractions, bleeding, LOF, abdominal pain Patient reports: loss of fluid, movement normal, no new complaints, no vaginal bleeding, no contractions Objective - Vital Signs Vital Signs: Vital Signs - 12hr 09/17/21 09/17/21 09/17/21 20:43 20:46 20:48 Pulse Rate 106 H 116 H Blood Pressure 111/68 O2 Sat by Pulse 91 97 Oximetry 09/17/21 09/17/21 09/17/21 20:53 20:58 21:03 Pulse Rate 106 H 105 H 100 H Blood Pressure O2 Sat by Pulse 98 97 98 Oximetry 09/17/21 09/17/21 21:08 21:13 Pulse Rate 99 H 101 H Blood Pressure O2 Sat by Pulse 97 97 Oximetry - Exam Narrative Exam: NAD sitting in bed Abdomen: Present: normal appearance Extremities: normal - Labs Labs: Abnormal Labs 09/03/21 09/09/21 09/12/21 13:00 08:45 07:43 WBC 11.6 H RBC 3.52 L 3.58 L MCH MCHC RDW 12.7 L 13.0 L Seg Neutrophils % 82.2 H 77.1 H Seg Neutrophils # 7.9 H 8.9 H 09/14/21 13:16 WBC RBC 3.55 L MCH 33 H MCHC 35 H RDW Seg Neutrophils % 75.9 H Seg Neutrophils #
[2021-09-18] MEDS: PRENATAL VIT27-FE FUMARATE-FOLIC ACID VIT TAB PO SCH (10:03)
--- NOTE | 2021-09-18 14:47 | Event Note ---
Date: 09/18/21 Anesthesia consult ordered d/t cardiomyopathy. [facility] also recommends Cardiology be readily available at the time of delivery.
--- NOTE | 2021-09-19 08:01 | Progress Note ---
Assessment and Plan A: 30 y.o. @ 31.6 wks, tachycardia, cardiomyopathy, PPROM. - Patient Problems (1) premature rupture of membranes (PPROM) with unknown onset of labor Current Visit: Yes Status: Acute Plan to address problem: Has completed IV and PO course of antibiotics. BMZ completed on 09/04. Continue to monitor maternal and status. Pt remains afebrile. NO s/sx of infection noted. Continue to monitor temperature. Plan to delivery @ 34 wks or sooner if distress or chorioamnionitis develops (2) Tachycardia Current Visit: Yes Status: Acute Plan to address problem: S/p Echo on 09/14 with EF of 40-45% Mild cardiomyopathy with tachycardia noted: Cardiology recommendations: - Follow up post delivery. - Initiate empiric treatment of hydralazine 25 mg twice daily and metoprolol succinate 25 mg daily after delivery. Per [facility] recommendations and conversation with patient: Pt and partner advised of the increased maternal morbidity and morbidity associated with the cardiomyopathy. Reviewed the need for close surveillance with cardiology to monitor for resolution , recurrence with each subsequent , need for cardiac clearance prior to her next conception, avoidance of further pregnancies if her cardiomyopathy has not resolved. Cardiology following and monitoring. (3) 31 to 32 weeks gestation of Current Visit: Yes Status: Acute Plan to address problem: Continue to monitor status through EFM. Growth u/s ordered for September 24. - Last completed on 09/03, 1471 gms. BPP twice weekly: Last completed on 09/16 03/02. - Next ordered for today and 09/23. Subjective - Subjective Date of service: 09/19/21 Principal diagnosis: PPROM, IUP @31.6 wks; Cardiomyopathy, tachycardia, PPROM Interval history: Pt states that she continues to leak fluids. Pt denies vaginal bleeding, ctxs. There is positive movement. Maternal tachycardia noted during admission. Patient continues to deny heart palpitations, chest pain, shortness of breath, or feeling lightheaded or dizzy. Patient reports: loss of fluid, movement normal, no new complaints, no vaginal bleeding, no contractions Objective - Vital Signs Vital Signs: Vital Signs - 12hr 09/18/21 09/18/21 09/18/21 21:58 22:03 22:07 Temperature 98.6 F Pulse Rate 148 H 113 H Respiratory 20 Rate Blood Pressure Blood Pressure 125/83 [Left] O2 Sat by Pulse 83 L 99 99 Oximetry O2 Sat by Pulse Oximetry [ Bilateral] 09/18/21 09/18/21 09/18/21 22:08 22:13 22:18 Temperature Pulse Rate 112 H 102 H 103 H Respiratory Rate Blood Pressure 125/83 Blood Pressure [Left] O2 Sat by Pulse 99 99 100 Oximetry O2 Sat by Pulse Oximetry [ Bilateral] 09/18/21 09/18/21 09/18/21 22:23 22:28 22:33 Temperature Pulse Rate 115 H 107 H 112 H Respiratory Rate Blood Pressure Blood Pressure [Left] O2 Sat by Pulse 100 99 97 Oximetry O2 Sat by Pulse Oximetry [ Bilateral] 09/18/21 09/19/21 09/19/21 22:38 00:05 02:05 Temperature 98.1 F 97.7 F Pulse Rate 102 H Respiratory 20 18 Rate Blood Pressure Blood Pressure [Left] O2 Sat by Pulse 99 Oximetry O2 Sat by Pulse Oximetry [ Bilateral] 09/19/21 09/19/21 09/19/21 04:06 04:08 05:58 Temperature 98.2 F 98.2 F Pulse Rate 88 88 Respiratory 18 18 Rate Blood Pressure 103/63 Blood Pressure 103/63 [Left] O2 Sat by Pulse 98 Oximetry O2 Sat by Pulse Oximetry [ Bilateral] 09/19/21 09/19/21 07:27 07:31 Temperature 98.1 F Pulse Rate Respiratory 18 Rate Blood Pressure Blood Pressure [Left] O2 Sat by Pulse 100 Oximetry O2 Sat by Pulse 100 Oximetry [ Bilateral] - Exam Narrative Exam: No s/sx of infection, no foul smelling fluid noted. Breasts: deferred Cardiovascular: Regular rate Lungs: Normal air movement Abdomen: Present: normal appearance, soft FHR: category 1 Uterine Contraction Monitor Mode: External Uterine Contraction Pattern: Absent Extremities: normal - Labs Labs: Abnormal Labs 09/03/21 09/09/21 09/12/21 13:00 08:45 07:43 WBC 11.6 H RBC 3.52 L 3.58 L MCH MCHC RDW 12.7 L 13.0 L Seg Neutrophils % 82.2 H 77.1 H Seg Neutrophils # 7.9 H 8.9 H 09/14/21 13:16 WBC RBC 3.55 L MCH 33 H MCHC 35 H RDW Seg Neutrophils % 75.9 H Seg Neutrophils #
[2021-09-19] MEDS: PRENATAL VIT27-FE FUMARATE-FOLIC ACID VIT TAB PO SCH (10:06)
[2021-09-19] MEDS ORDERED: LIDOCAINE (2%) 20 MG/1 ML VIAL 20 ML MDV INFILTRATI ONE (11:34)
--- NOTE | 2021-09-19 12:42 | Ultrasound Report ---
ULTRASOUND BIOPHYSICAL PROFILE INDICATION / CLINICAL INFORMATION: well being. Clinical Gestational Age (GA) in weeks, days: 31 weeks 6 days TECHNIQUE: Transabdominal. COMPARISON: biophysical profile 09/16/2021. FINDINGS: BREATHING MOVEMENT = 2 GROSS BODY MOVEMENT = 2 TONE = 2 QUALITATIVE AMNIOTIC FLUID VOLUME = 2 TOTAL BIOPHYSICAL SCORE = 8/8 HEART RATE (beats per minute): 142 BPM PRESENTATION: Cephalic. ADDITIONAL FINDINGS: None. IMPRESSION: 1. Biophysical Score = 8/8 Scribed by: Lore Graham RDMS, RVT, RMSKS Scribed: 09/19/2021 9:52 AM I have reviewed the images, agree with this report, and edited this report as needed. Signer Name: aLzaro Doran MD Signed: 09/19/2021 12:37 PM Workstation Name: [id number]
[2021-09-19] MEDS: LACTATED RINGERS 1,000 ML IV SCH (22:02)
[2021-09-20] MEDS: PRENATAL VIT27-FE FUMARATE-FOLIC ACID VIT TAB PO SCH (10:45)
--- NOTE | 2021-09-20 11:48 | Progress Note ---
Assessment and Plan 30y/o @ 32.0 weeks. PPROM ~19days. Maternal tachycardia with cardiomyopathy. Cardiology following. Pt resting in bed, denies any concerns at this time. Looks like in good spirts. States leakage still present, denies ctx No ABD tenderness, no foul smelling fluid, or fever. Will continue to follow recommendations per [facility]: * Continue hospitalization, Deliver at 34 weeks or sooner if distress or chorioamnionitis. * Monitor for s/sx of labor, chorioamnionitis, distress. * BMZ: course completed 09/04/2021. * Latency IV antibiotics and PO antibiotics completed. * Twice weekly BPP, last on 09/19 03/02. Next ordered for 09/23/21. * Growth scan [id number] (last growth scan was 09/03 EFW 1471gms, Next ordered on September 24). * Continue to monitor maternal temperature. - Patient Problems (1) Nuchal fold thickening on ultrasound Current Visit: Yes Status: Acute (2) premature rupture of membranes (PPROM) with unknown onset of labor Current Visit: Yes Status: Acute (3) Pyelectasis of fetus on ultrasound Current Visit: Yes Status: Acute (4) Tachycardia Current Visit: Yes Status: Acute Plan to address problem: Pt with continued intermittent maternal tachycardia. EKG and Labs from 09/11 normal. 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 Cardiology recommendations: - Follow up post delivery. - Initiate empiric treatment of hydralazine 25 mg twice daily and metoprolol succinate 25 mg daily after delivery. Subjective - Subjective Date of service: 09/20/21 Principal diagnosis: PPROM, IUP @32.0 wks; Cardiomyopathy, tachycardia, PPROM Patient reports: loss of fluid, movement normal, no new complaints, no vaginal bleeding, no contractions Objective - Vital Signs Vital Signs: Vital Signs - 12hr 09/20/21 09/20/21 09/20/21 01:45 03:45 03:49 Temperature 98.6 F 98.6 F Pulse Rate 98 H 98 H Respiratory 20 Rate Blood Pressure 111/58 Blood Pressure [Left] Blood Pressure 111/58 [Right] O2 Sat by Pulse Oximetry O2 Sat by Pulse Oximetry [ Bilateral] 09/20/21 09/20/21 09/20/21 05:50 09:56 09:58 Temperature 98.1 F 98.0 F Pulse Rate 88 Respiratory 14 Rate Blood Pressure Blood Pressure 123/76 [Left] Blood Pressure [Right] O2 Sat by Pulse 99 Oximetry O2 Sat by Pulse 99 Oximetry [ Bilateral] 09/20/21 10:05 Temperature Pulse Rate 88 Respiratory Rate Blood Pressure 123/76 Blood Pressure [Left] Blood Pressure [Right] O2 Sat by Pulse Oximetry O2 Sat by Pulse Oximetry [ Bilateral] - Exam Breasts: normal Abdomen: Present: normal appearance, soft Uterus: Present: normal Uterine Contraction Monitor Mode: Palpation Uterine Contraction Pattern: Absent Uterine Tone Measurement Phase: Resting Extremities: normal - Labs Labs: Abnormal Labs 09/03/21 09/09/21 09/12/21 13:00 08:45 07:43 WBC 11.6 H RBC 3.52 L 3.58 L MCH MCHC RDW 12.7 L 13.0 L Seg Neutrophils % 82.2 H 77.1 H Seg Neutrophils # 7.9 H 8.9 H 09/14/21 13:16 WBC RBC 3.55 L MCH 33 H MCHC 35 H RDW Seg Neutrophils % 75.9 H Seg Neutrophils #
--- NOTE | 2021-09-21 07:56 | Progress Note ---
Assessment and Plan 30y/o @ 32.1 weeks. PPROM ~20 days. Maternal tachycardia with cardiomyopathy. Cardiology following. Pt resting in bed, denies any concerns at this time. Pt is in good spirts. States leakage still present mostly at night, denies ctx. No ABD tenderness, no foul smelling fluid, or fever. Will continue to follow recommendations per [facility]: * Continue hospitalization, Deliver at 34 weeks or sooner if distress or chorioamnionitis. * Monitor for s/sx of labor, chorioamnionitis, distress. * BMZ: course completed 09/04/2021. * Latency IV antibiotics and PO antibiotics completed. * Twice weekly BPP, last on 09/19 03/02. Next ordered for 09/23/21. * Growth scan [id number] (last growth scan was 09/03 EFW 1471gms, Next ordered on September 24). * Continue to monitor maternal temperature. - Patient Problems (1) Nuchal fold thickening on ultrasound Current Visit: Yes Status: Acute (2) premature rupture of membranes (PPROM) with unknown onset of labor Current Visit: Yes Status: Acute (3) Pyelectasis of fetus on ultrasound Current Visit: Yes Status: Acute (4) Tachycardia Current Visit: Yes Status: Acute Plan to address problem: Pt with continued intermittent maternal tachycardia. EKG and Labs from 09/11 normal. 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 Cardiology recommendations: - Follow up post delivery. - Initiate empiric treatment of hydralazine 25 mg twice daily and metoprolol succinate 25 mg daily after delivery. Anesthesia has seen patient and will speak to her again closer to delivery. Subjective - Subjective Date of service: 09/21/21 Principal diagnosis: PPROM, IUP @32.1 wks; Cardiomyopathy, tachycardia, PPROM Patient reports: loss of fluid, movement normal, no new complaints, no vaginal bleeding, no contractions Objective - Vital Signs Vital Signs: Vital Signs - 12hr 09/20/21 23:44 Temperature 98.7 F - Exam Cardiovascular: Regular rate Abdomen: Present: normal appearance, soft. Absent: distention, tenderness Uterus: Present: normal FHR: auscultation normal Uterine Contraction Monitor Mode: Palpation Uterine Tone Measurement Phase: Resting Extremities: normal - Labs Labs: Abnormal Labs 09/03/21 09/09/21 09/12/21 13:00 08:45 07:43 WBC 11.6 H RBC 3.52 L 3.58 L MCH MCHC RDW 12.7 L 13.0 L Seg Neutrophils % 82.2 H 77.1 H Seg Neutrophils # 7.9 H 8.9 H 09/14/21 13:16 WBC RBC 3.55 L MCH 33 H MCHC 35 H RDW Seg Neutrophils % 75.9 H Seg Neutrophils #
[2021-09-21] MEDS: PRENATAL VIT27-FE FUMARATE-FOLIC ACID VIT TAB PO SCH (10:05)
--- NOTE | 2021-09-21 11:30 | Progress Note ---
Assessment and Plan A 1: IUP at 32 1/7 weeks gestation EFW 1471gm 2 s/p BMZ 09/04 2. PROM s/p latency antibiotics Continue to monitor for chorioamnionitis, labor, distress Continue twice weekly testing , growth scan q 3 weeks Delivery is advised at 34 0/7wks gestation 3. 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 - Initiate empiric treatment of hydralazine 25 mg twice daily and metoprolol succinate 25 mg daily after delivery. She was previously counseled regarding the need for close surveillance with cardiology to monitor for resolution , recurrence with each subsequent , need for cardiac clearance prior to her next conception, avoidance of further pregnancies if her cardiomyopathy has not resolved. Vaginal delivery is recommended in the hemodynamically stable patient, with CS reserved for routine obstetric indications, or acute maternal decompensation . Regional anesthesia is not contraindicated ,however anesthesiology should be consulted prior to her planned delivery. Strict I&O with avoidance of intrapartum/ fluid overload. Subjective - Subjective Date of service: 09/21/21 Principal diagnosis: PPROM, IUP @32.1 wks; Cardiomyopathy, tachycardia, PPROM Interval history: Notes LOF Denied bleeding, abdominal pain , contractions, SOB, chest pain, Patient reports: loss of fluid, movement normal, no new complaints, no vaginal bleeding, no contractions Objective - Vital Signs Vital Signs: Vital Signs - 12hr 09/20/21 09/21/21 09/21/21 23:44 10:14 10:15 Temperature 98.7 F 98.6 F Pulse Rate 96 H Respiratory 20 Rate Blood Pressure 113/71 O2 Sat by Pulse 98 Oximetry O2 Sat by Pulse Oximetry [ Bilateral] 09/21/21 10:21 Temperature Pulse Rate Respiratory Rate Blood Pressure O2 Sat by Pulse Oximetry O2 Sat by Pulse 98 Oximetry [ Bilateral] - Exam Narrative Exam: laying in bed NAD Abdomen: Present: soft (nontender) Extremities: normal - Labs Labs: Abnormal Labs 09/03/21 09/09/21 09/12/21 13:00 08:45 07:43 WBC 11.6 H RBC 3.52 L 3.58 L MCH MCHC RDW 12.7 L 13.0 L Seg Neutrophils % 82.2 H 77.1 H Seg Neutrophils # 7.9 H 8.9 H 09/14/21 13:16 WBC RBC 3.55 L MCH 33 H MCHC 35 H RDW Seg Neutrophils % 75.9 H Seg Neutrophils # - Results US- obstetric: report reviewed (09/19 BPP 03/02)
--- NOTE | 2021-09-22 09:16 | Progress Note ---
Assessment and Plan Pt resting in bed without new complaints or concerns. SO present and supportive at bedside. Pt reports +FM and LOF; denies VB and contractions. POC d/w pt for continued hospitalization until delivery. Pt may have wheelchair ride to visit the garden. Questions encouraged. No questions or concerns verbalized. Pt verbalizes understanding and agrees to POC . Plan per [facility] recommendations: * Continue hospitalization, Deliver at 34 weeks or sooner if distress or chorioamnionitis. * Monitor for s/sx of labor, chorioamnionitis, distress. * BMZ: course completed 09/04/2021. * Latency IV antibiotics and PO antibiotics completed. * Twice weekly BPP, last on 09/19 03/02, Next ordered for 09/23/21 * Growth scan [id number] (last growth scan was 09/03 EFW 1471gms, Next ordered on September 24). 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 - Initiate empiric treatment of hydralazine 25 mg twice daily and metoprolol succinate 25 mg daily after delivery. She was previously counseled regarding the need for close surveillance with cardiology to monitor for resolution , recurrence with each subsequent , need for cardiac clearance prior to her next conception, avoidance of further pregnancies if her cardiomyopathy has not resolved. Vaginal delivery is recommended in the hemodynamically stable patient, with CS reserved for routine obstetric indications, or acute maternal decompensation . Regional anesthesia is not contraindicated ,however anesthesiology should be consulted prior to her planned delivery. Strict I&O with avoidance of intrapartum/ fluid overload. 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 (6) Tachycardia Current Visit: Yes Status: Acute Subjective - Subjective Date of service: 09/22/21 Principal diagnosis: PPROM, IUP @32.2 wks; Cardiomyopathy, tachycardia Patient reports: loss of fluid, movement normal, no new complaints, no vaginal bleeding, no contractions Objective - Vital Signs Vital Signs: Vital Signs - 12hr 09/21/21 09/21/21 09/21/21 21:31 22:54 22:56 Temperature 99.5 F Pulse Rate 76 Blood Pressure 134/70 O2 Sat by Pulse 81 L Oximetry O2 Sat by Pulse 100 Oximetry [ Bilateral] 09/21/21 09/21/21 09/21/21 22:59 23:04 23:09 Temperature Pulse Rate 120 H 110 H 115 H Blood Pressure O2 Sat by Pulse 99 98 99 Oximetry O2 Sat by Pulse Oximetry [ Bilateral] 09/21/21 09/21/21 09/21/21 23:14 23:19 23:24 Temperature Pulse Rate 115 H 112 H 113 H Blood Pressure O2 Sat by Pulse 99 100 100 Oximetry O2 Sat by Pulse Oximetry [ Bilateral] 09/21/21 09/21/21 09/21/21 23:29 23:34 23:39 Temperature Pulse Rate 114 H 117 H 113 H Blood Pressure O2 Sat by Pulse 98 97 99 Oximetry O2 Sat by Pulse Oximetry [ Bilateral] 09/22/21 09/22/21 09/22/21 01:00 03:00 05:00 Temperature 99 F 98.6 F 98.6 F Pulse Rate Blood Pressure O2 Sat by Pulse Oximetry O2 Sat by Pulse Oximetry [ Bilateral] - Exam Breasts: deferred Cardiovascular: Other (tachycardia up to 110's bpm) Abdomen: Present: normal appearance. Absent: distention, tenderness, guarding Uterus: Present: other (gravid) Uterine Contraction Pattern: Absent Extremities: normal - Labs Labs: Abnormal Labs 09/03/21 09/09/21 09/12/21 13:00 08:45 07:43 WBC 11.6 H RBC 3.52 L 3.58 L MCH MCHC RDW 12.7 L 13.0 L Seg Neutrophils % 82.2 H 77.1 H Seg Neutrophils # 7.9 H 8.9 H 09/14/21 13:16 WBC RBC 3.55 L MCH 33 H MCHC 35 H RDW Seg Neutrophils % 75.9 H Seg Neutrophils #
[2021-09-22] MEDS: PRENATAL VIT27-FE FUMARATE-FOLIC ACID VIT TAB PO SCH (10:37)
--- NOTE | 2021-09-23 08:46 | Progress Note ---
Assessment and Plan A: 30 y.o. @ 32.3 wks, PPROM, cardiomyopathy. - Patient Problems (1) premature rupture of membranes (PPROM) with unknown onset of labor Current Visit: Yes Status: Acute Plan to address problem: Has completed IV and PO course of antibiotics. BMZ completed on 09/04. Continue to monitor maternal and status. Pt remains afebrile. NO s/sx of infection noted. Continue to monitor temperature. Plan to delivery @ 34 wks or sooner if distress or chorioamnionitis develops (2) Tachycardia Current Visit: Yes Status: Acute Plan to address problem: S/p Echo on 09/14 with EF of 40-45% Mild cardiomyopathy with tachycardia noted: Cardiology recommendations: - Follow up post delivery. - Initiate empiric treatment of hydralazine 25 mg twice daily and metoprolol succinate 25 mg daily after delivery. Per [facility] recommendations and conversation with patient: Pt and partner advised of the increased maternal morbidity and morbidity associated with the cardiomyopathy. Reviewed the need for close surveillance with cardiology to monitor for resolution , recurrence with each subsequent , need for cardiac clearance prior to her next conception, avoidance of further pregnancies if her cardiomyopathy has not resolved. Per [facility] recommendations regarding delivery: Vaginal delivery is recommended in the hemodynamically stable patient, with CS reserved for routine obstetric indications, or acute maternal decompensation . Regional anesthesia is not contraindicated ,however anesthesiology should be consulted prior to her planned delivery. Strict I&O with avoidance of intrapartum/ fluid overload. (3) 31 to 32 weeks gestation of Current Visit: Yes Status: Acute Plan to address problem: Continue to monitor status through EFM. Growth u/s ordered for September 24. - Last completed on 09/03, 1471 gms. BPP twice weekly: Last completed on 09/16 03/02. - Next ordered for today and was 03/02. - Next BPP 09/26. Subjective - Subjective Date of service: 09/23/21 Principal diagnosis: PPROM, IUP @32.3 wks; Cardiomyopathy, tachycardia Interval history: Pt states that she continues to leak fluids. Pt denies vaginal bleeding, ctxs. There is positive movement. Maternal tachycardia noted during admission. Patient continues to deny heart palpitations, chest pain, shortness of breath, or feeling lightheaded or dizzy. Patient reports: loss of fluid, movement normal, no new complaints, no vag inal bleeding, no contractions Objective - Exam Breasts: deferred Abdomen: Present: normal appearance, soft Uterus: Present: normal FHR: category 1 (NST's) Uterine Contraction Pattern: Absent Extremities: normal - Labs Labs: Abnormal Labs 09/03/21 09/09/21 09/12/21 13:00 08:45 07:43 WBC 11.6 H RBC 3.52 L 3.58 L MCH MCHC RDW 12.7 L 13.0 L Seg Neutrophils % 82.2 H 77.1 H Seg Neutrophils # 7.9 H 8.9 H 09/14/21 13:16 WBC RBC 3.55 L MCH 33 H MCHC 35 H RDW Seg Neutrophils % 75.9 H Seg Neutrophils #
--- NOTE | 2021-09-23 12:16 | Progress Note ---
Assessment and Plan A 1: IUP at 32 3/7 weeks gestation EFW 1471gm 2/9 s/p BMZ 10 2. PROM s/p latency antibiotics Continue to monitor for chorioamnionitis, labor, distress Continue twice weekly testing , growth scan q 3 weeks Delivery is advised at 34 0/7wks gestation 3. 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 - Initiate empiric treatment of hydralazine 25 mg twice daily and metoprolol succinate 25 mg daily after delivery. She was previously counseled regarding the need for close surveillance with cardiology to monitor for resolution , recurrence with each subsequent , need for cardiac clearance prior to her next conception, avoidance of further pregnancies if her cardiomyopathy has not resolved. Vaginal delivery is recommended in the hemodynamically stable patient, with CS reserved for routine obstetric indications, or acute maternal decompensation . Regional anesthesia is not contraindicated ,however anesthesiology should be consulted prior to her planned delivery. Strict I&O with avoidance of intrapartum/ fluid overload. Subjective - Subjective Date of service: 09/23/21 Principal diagnosis: PPROM, IUP @32.3 wks; Cardiomyopathy, tachycardia Interval history: She has no obstetric or cardiac complaints Patient reports: loss of fluid, movement normal, no new complaints, no vaginal bleeding, no contractions Objective - Vital Signs Vital Signs: Vital Signs - 12hr 09/23/21 09/23/21 09/23/21 08:30 09:25 09:26 Pulse Rate 83 85 Blood Pressure 108/59 O2 Sat by Pulse 97 Oximetry O2 Sat by Pulse 97 Oximetry [ Bilateral] - Exam Narrative Exam: laying in bed Abdomen: Present: normal appearance, soft Extremities: normal - Labs Labs: Abnormal Labs 09/03/21 09/09/21 09/12/21 13:00 08:45 07:43 WBC 11.6 H RBC 3.52 L 3.58 L MCH MCHC RDW 12.7 L 13.0 L Seg Neutrophils % 82.2 H 77.1 H Seg Neutrophils # 7.9 H 8.9 H 09/14/21 13:16 WBC RBC 3.55 L MCH 33 H MCHC 35 H RDW Seg Neutrophils % 75.9 H Seg Neutrophils #
[2021-09-23] MEDS: PRENATAL VIT27-FE FUMARATE-FOLIC ACID VIT TAB PO SCH (15:31)
--- NOTE | 2021-09-23 16:59 | Ultrasound Report ---
ULTRASOUND BIOPHYSICAL PROFILE INDICATION / CLINICAL INFORMATION: well being. COMPARISON: biophysical profile 09/19/2021. FINDINGS: BREATHING MOVEMENT = 2 GROSS BODY MOVEMENT = 2 TONE = 2 QUALITATIVE AMNIOTIC FLUID VOLUME = 2 TOTAL BIOPHYSICAL SCORE = 8/8 AMNIOTIC FLUID INDEX (cm) = 10.6 cm PRESENTATION: Cephalic. HEART RATE (beats per minute): 144 BPM ADDITIONAL FINDINGS: Incidental note is made of mild bilateral pyelectasis measuring 8 mm on the righ t and 7 mm on the left. IMPRESSION: 1. biophysical profile = 8/8 2. Mild bilateral pyelectasis. Scribed by: Lore Graham RDMS, ABHISHEK, ZENAIDA Scribed: 09/23/2021 3:16 PM I have reviewed the images, agree with this report, and edited this report as needed. Signer Name: John Staples MD Signed: 09/23/2021 4:55 PM Workstation Name: [id number]
--- NOTE | 2021-09-24 08:32 | Progress Note ---
Assessment and Plan Pt laying in bed s/p bedside ultrasound. Pt denies having any new complaints or concerns. SO present and supportive at bedside. Pt reports +FM and continued LOF; denies chest pain, SOB, foul vaginal odor, chills, fever, VB and contractions. POC d/w pt for continued hospitalization until delivery. Pt may have wheelchair ride to visit the garden. Questions encouraged. No questions or concerns verbalized. Pt verbalizes understanding and agrees to POC . Plan per [facility] recommendations: * Continue hospitalization, Deliver at 34 weeks or sooner if distress or chorioamnionitis. * Monitor for s/sx of labor, chorioamnionitis, distress. * BMZ: course completed on 09/04/21. * Latency IV antibiotics and PO antibiotics completed. 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 - Initiate empiric treatment of hydralazine 25 mg twice daily and metoprolol succinate 25 mg daily after delivery. She was previously counseled regarding the need for close surveillance with cardiology to monitor for resolution , recurrence with each subsequent , need for cardiac clearance prior to her next conception, avoidance of further pregnancies if her cardiomyopathy has not resolved. Vaginal delivery is recommended in the hemodynamically stable patient, with CS reserved for routine obstetric indications, or acute maternal decompensation . Regional anesthesia is not contraindicated ,however anesthesiology should be consulted prior to her planned delivery. Strict I&O with avoidance of intrapartum/ fluid overload. 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 (6) Tachycardia Current Visit: Yes Status: Acute Subjective - Subjective Date of service: 09/24/21 Principal diagnosis: PPROM, IUP @32.4 wks; Cardiomyopathy, tachycardia Patient reports: loss of fluid, movement normal, no new complaints, no vaginal bleeding, no contractions Objective - Vital Signs Vital Signs: Vital Signs - 12hr 09/23/21 09/23/21 09/23/21 23:07 23:12 23:17 Temperature Pulse Rate 97 H 105 H 100 H Respiratory Rate Blood Pressure Blood Pressure [Right] O2 Sat by Pulse 97 97 96 Oximetry O2 Sat by Pulse Oximetry [ Bilateral] 09/23/21 09/23/21 09/23/21 23:22 23:25 23:27 Temperature 98.5 F Pulse Rate 100 H 97 H 100 H Respiratory 20 Rate Blood Pressure 109/69 Blood Pressure [Right] O2 Sat by Pulse 95 96 Oximetry O2 Sat by Pulse Oximetry [ Bilateral] 09/23/21 09/23/21 09/23/21 23:32 23:37 23:42 Temperature Pulse Rate 100 H 101 H 99 H Respiratory Rate Blood Pressure Blood Pressure [Right] O2 Sat by Pulse 97 96 97 Oximetry O2 Sat by Pulse Oximetry [ Bilateral] 09/23/21 09/24/21 09/24/21 23:47 02:08 02:11 Temperature Pulse Rate 102 H 94 H 97 H Respiratory Rate Blood Pressure Blood Pressure [Right] O2 Sat by Pulse 97 95 94 Oximetry O2 Sat by Pulse Oximetry [ Bilateral] 09/24/21 09/24/21 09/24/21 02:13 02:18 02:23 Temperature Pulse Rate 102 H 111 H 100 H Respiratory Rate Blood Pressure Blood Pressure [Right] O2 Sat by Pulse 95 97 96 Oximetry O2 Sat by Pulse Oximetry [ Bilateral] 09/24/21 09/24/21 09/24/21 02:28 02:33 02:34 Temperature Pulse Rate 102 H 89 102 H Respiratory Rate Blood Pressure Blood Pressure [Right] O2 Sat by Pulse 95 98 92 Oximetry O2 Sat by Pulse Oximetry [ Bilateral] 09/24/21 09/24/21 09/24/21 02:45 02:50 02:55 Temperature Pulse Rate 215 H 121 H 95 H Respiratory Rate Blood Pressure Blood Pressure [Right] O2 Sat by Pulse 91 98 98 Oximetry O2 Sat by Pulse Oximetry [ Bilateral] 09/24/21 09/24/21 09/24/21 03:00 03:05 03:10 Temperature Pulse Rate 94 H 116 H 112 H Respiratory Rate Blood Pressure Blood Pressure [Right] O2 Sat by Pulse 98 99 97 Oximetry O2 Sat by Pulse Oximetry [ Bilateral] 09/24/21 09/24/21 09/24/21 03:15 03:19 03:20 Temperature Pulse Rate 107 H 103 H 95 H Respiratory Rate Blood Pressure Blood Pressure [Right] O2 Sat by Pulse 98 94 95 Oximetry O2 Sat by Pulse Oximetry [ Bilateral] 09/24/21 09/24/21 09/24/21 03:25 03:30 03:35 Temperature Pulse Rate 101 H 98 H 99 H Respiratory Rate Blood Pressure Blood Pressure [Right] O2 Sat by Pulse 96 95 95 Oximetry O2 Sat by Pulse Oximetry [ Bilateral] 09/24/21 09/24/21 09/24/21 03:40 03:42 03:45 Temperature Pulse Rate 101 H 100 H 100 H Respiratory Rate Blood Pressure Blood Pressure [Right] O2 Sat by Pulse 95 94 95 Oximetry O2 Sat by Pulse Oximetry [ Bilateral] 09/24/21 09/24/21 09/24/21 03:50 03:53 03:55 Temperature Pulse Rate 99 H 113 H 95 H Respiratory Rate Blood Pressure Blood Pressure [Right] O2 Sat by Pulse 95 94 95 Oximetry O2 Sat by Pulse Oximetry [ Bilateral] 09/24/21 09/24/21 09/24/21 04:00 04:02 04:05 Temperature Pulse Rate 101 H 91 H 84 Respiratory Rate Blood Pressure Blood Pressure [Right] O2 Sat by Pulse 95 94 96 Oximetry O2 Sat by Pulse Oximetry [ Bilateral] 09/24/21 09/24/21 09/24/21 04:10 04:13 04:15 Temperature Pulse Rate 114 H 102 H 99 H Respiratory Rate Blood Pressure Blood Pressure [Right] O2 Sat by Pulse 96 94 96 Oximetry O2 Sat by Pulse Oximetry [ Bilateral] 09/24/21 09/24/21 09/24/21 04:19 04:20 04:25 Temperature Pulse Rate 105 H 108 H 76 Respiratory Rate Blood Pressure Blood Pressure [Right] O2 Sat by Pulse 94 96 96 Oximetry O2 Sat by Pulse Oximetry [ Bilateral] 09/24/21 09/24/21 09/24/21 04:30 04:33 04:35 Temperature Pulse Rate 87 92 H 79 Respiratory Rate Blood Pressure Blood Pressure [Right] O2 Sat by Pulse 96 94 95 Oximetry O2 Sat by Pulse Oximetry [ Bilateral] 09/24/21 09/24/21 09/24/21 04:40 04:43 04:45 Temperature Pulse Rate 89 84 90 Respiratory Rate Blood Pressure Blood Pressure [Right] O2 Sat by Pulse 95 94 95 Oximetry O2 Sat by Pulse Oximetry [ Bilateral] 09/24/21 09/24/21 09/24/21 04:50 04:51 04:55 Temperature Pulse Rate 94 H 90 88 Respiratory Rate Blood Pressure Blood Pressure [Right] O2 Sat by Pulse 94 94 95 Oximetry O2 Sat by Pulse Oximetry [ Bilateral] 09/24/21 09/24/21 09/24/21 05:00 05:05 05:10 Temperature Pulse Rate 90 85 91 H Respiratory Rate Blood Pressure Blood Pressure [Right] O2 Sat by Pulse 95 95 96 Oximetry O2 Sat by Pulse Oximetry [ Bilateral] 09/24/21 09/24/21 09/24/21 05:15 05:20 05:25 Temperature Pulse Rate 99 H 96 H 88 Respiratory Rate Blood Pressure Blood Pressure [Right] O2 Sat by Pulse 97 97 96 Oximetry O2 Sat by Pulse Oximetry [ Bilateral] 09/24/21 09/24/21 09/24/21 05:30 05:35 05:40 Temperature Pulse Rate 100 H 98 H 95 H Respiratory Rate Blood Pressure Blood Pressure [Right] O2 Sat by Pulse 96 99 99 Oximetry O2 Sat by Pulse Oximetry [ Bilateral] 09/24/21 09/24/21 09/24/21 05:45 05:50 05:55 Temperature 98.4 F Pulse Rate 111 H 81 74 Respiratory 16 Rate Blood Pressure 114/56 Blood Pressure [Right] O2 Sat by Pulse 98 96 97 Oximetry O2 Sat by Pulse Oximetry [ Bilateral] 09/24/21 09/24/21 09/24/21 06:00 06:05 06:10 Temperature Pulse Rate 83 91 H 91 H Respiratory Rate Blood Pressure Blood Pressure [Right] O2 Sat by Pulse 97 96 97 Oximetry O2 Sat by Pulse Oximetry [ Bilateral] 09/24/21 09/24/21 09/24/21 06:15 06:20 06:25 Temperature Pulse Rate 96 H 101 H 82 Respiratory Rate Blood Pressure Blood Pressure [Right] O2 Sat by Pulse 96 96 97 Oximetry O2 Sat by Pulse Oximetry [ Bilateral] 09/24/21 09/24/21 09/24/21 06:30 06:35 06:40 Temperature Pulse Rate 74 76 83 Respiratory Rate Blood Pressure Blood Pressure [Right] O2 Sat by Pulse 97 96 97 Oximetry O2 Sat by Pulse Oximetry [ Bilateral] 09/24/21 09/24/21 09/24/21 06:45 06:50 06:55 Temperature Pulse Rate 86 82 95 H Respiratory Rate Blood Pressure Blood Pressure [Right] O2 Sat by Pulse 97 97 96 Oximetry O2 Sat by Pulse Oximetry [ Bilateral] 09/24/21 09/24/21 09/24/21 07:00 07:05 07:10 Temperature Pulse Rate 90 95 H 92 H Respiratory Rate Blood Pressure Blood Pressure [Right] O2 Sat by Pulse 96 96 95 Oximetry O2 Sat by Pulse Oximetry [ Bilateral] 09/24/21 09/24/21 09/24/21 07:15 07:20 07:25 Temperature Pulse Rate 90 92 H 93 H Respiratory Rate Blood Pressure Blood Pressure [Right] O2 Sat by Pulse 96 96 95 Oximetry O2 Sat by Pulse Oximetry [ Bilateral] 09/24/21 09/24/21 09/24/21 07:30 07:33 07:35 Temperature 97.8 F Pulse Rate 119 H 88 74 Respiratory 18 Rate Blood Pressure 98/54 Blood Pressure 98/54 [Right] O2 Sat by Pulse 97 98 98 Oximetry O2 Sat by Pulse 98 Oximetry [ Bilateral] 09/24/21 09/24/21 07:44 07:46 Temperature Pulse Rate 91 H 96 H Respiratory Rate Blood Pressure Blood Pressure [Right] O2 Sat by Pulse 97 86 Oximetry O2 Sat by Pulse Oximetry [ Bilateral] - Exam Breasts: deferred Cardiovascular: Regular rate Lungs: Normal air movement Abdomen: Present: normal appearance, soft. Absent: distention, tenderness, guarding Uterus: Present: other (gravid). Absent: tenderness FHR comments: NST qshift Uterine Contraction Monitor Mode: Palpation Uterine Contraction Pattern: Absent Uterine Tone Measurement Phase: Resting Extremities: normal - Labs Labs: Abnormal Labs 09/03/21 09/09/21 09/12/21 13:00 08:45 07:43 WBC 11.6 H RBC 3.52 L 3.58 L MCH MCHC RDW 12.7 L 13.0 L Seg Neutrophils % 82.2 H 77.1 H Seg Neutrophils # 7.9 H 8.9 H 09/14/21 13:16 WBC RBC 3.55 L MCH 33 H MCHC 35 H RDW Seg Neutrophils % 75.9 H Seg Neutrophils #
--- NOTE | 2021-09-24 09:16 | Ultrasound Report ---
OB Ultrasound HISTORY: growth, Full SO. TECHNIQUE: Grayscale and color imaging performed. COMPARISON: 09/05/2021 FINDINGS: Single viable intrauterine gestation with cephalic presentation. Overall EGA by ultrasound is 32 weeks and 4 days which matches the clinical gestational age. Estimated delivery date is 11/16/19. Estimated weight is 1923 g which is the 29th percentile. Heart rate is 130 bpm and SO is 16 cm. IMPRESSION: Single viable intrauterine gestation as above. Signer Name: Po Wade MD Signed: 09/24/2021 9:11 AM Workstation Name: [id number]
[2021-09-24] MEDS: PRENATAL VIT27-FE FUMARATE-FOLIC ACID VIT TAB PO SCH (10:39)
[2021-09-25] MEDS: PRENATAL VIT27-FE FUMARATE-FOLIC ACID VIT TAB PO SCH (10:20)
--- NOTE | 2021-09-25 12:45 | Progress Note ---
Assessment and Plan A 1: IUP at 32 5/7 weeks gestation s/p BMZ 09/04 EFW 1471gm 09/03 3/ EFW 4lb 4oz 29% 2. PROM s/p latency antibiotics Continue to monitor for chorioamnionitis, labor, distress Continue twice weekly testing , growth scan q 3 weeks Delivery is advised at 34 0/7wks gestation 3. 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 - Initiate empiric treatment of hydralazine 25 mg twice daily and metoprolol succinate 25 mg daily after delivery. She was previously counseled regarding the need for close surveillance with cardiology to monitor for resolution , recurrence with each subsequent , need for cardiac clearance prior to her next conception, avoidance of further pregnancies if her cardiomyopathy has not resolved. Vaginal delivery is recommended in the hemodynamically stable patient, with CS reserved for routine obstetric indications, or acute maternal decompensation . Regional anesthesia is not contraindicated ,however anesthesiology should be consulted prior to her planned delivery. Strict I&O with avoidance of intrapartum/ fluid overload. Subjective - Subjective Date of service: 09/25/21 Principal diagnosis: PPROM, IUP @32.5 wks; Cardiomyopathy, tachycardia Interval history: She has no obstetric or cardiac complaints Patient reports: loss of fluid, movement normal, no new complaints, no vaginal bleeding, no contractions Objective - Vital Signs Vital Signs: Vital Signs - 12hr 09/25/21 09/25/21 09/25/21 05:00 05:38 09:00 Temperature 98.5 F Pulse Rate 109 H Blood Pressure Blood Pressure 112/74 [Left] O2 Sat by Pulse 81 L Oximetry O2 Sat by Pulse 98 Oximetry [ Bilateral] 09/25/21 09/25/21 09/25/21 09:03 09:04 09:05 Temperature 98.5 F Pulse Rate 81 82 84 Blood Pressure 110/65 Blood Pressure [Left] O2 Sat by Pulse 98 81 L Oximetry O2 Sat by Pulse Oximetry [ Bilateral] 09/25/21 12:40 Temperature Pulse Rate 97 H Blood Pressure Blood Pressure [Left] O2 Sat by Pulse 98 Oximetry O2 Sat by Pulse Oximetry [ Bilateral] - Exam Narrative Exam: NAD laying in bed Pulse ox placed HR 97 O2 98% RA Abdomen: Present: normal appearance, soft - Labs Labs: Abnormal Labs 09/03/21 09/09/21 09/12/21 13:00 08:45 07:43 WBC 11.6 H RBC 3.52 L 3.58 L MCH MCHC RDW 12.7 L 13.0 L Seg Neutrophils % 82.2 H 77.1 H Seg Neutrophils # 7.9 H 8.9 H 09/14/21 13:16 WBC RBC 3.55 L MCH 33 H MCHC 35 H RDW Seg Neutrophils % 75.9 H Seg Neutrophils # - Results US- obstetric: report reviewed (09/23 BPP 03/02 , 3 2 SO 16 EFW 4lb 4oz 29% )
--- NOTE | 2021-09-25 13:45 | Progress Note ---
Assessment and Plan A: 30 y.o. @ 32.5 wks, PPROM, cardiomyopathy, tachycardia. - Patient Problems (1) premature rupture of membranes (PPROM) with unknown onset of labor Current Visit: Yes Status: Acute Plan to address problem: Has completed IV and PO course of antibiotics. BMZ completed on 09/04. Continue to monitor maternal and status. Pt remains afebrile. NO s/sx of infection noted. Continue to monitor temperature. Plan to delivery @ 34 wks or sooner if distress or chorioamnionitis develops (2) Tachycardia Current Visit: Yes Status: Acute Plan to address problem: S/p Echo on 09/14 with EF of 40-45% Mild cardiomyopathy with tachycardia noted: Cardiology recommendations: - Follow up post delivery. - Initiate empiric treatment of hydralazine 25 mg twice daily and metoprolol succinate 25 mg daily after delivery. Per [facility] recommendations and conversation with patient: Pt and partner advised of the increased maternal morbidity and morbidity associated with the cardiomyopathy. Reviewed the need for close surveillance with cardiology to monitor for resolution , recurrence with each subsequent , need for cardiac clearance prior to her next conception, avoidance of further pregnancies if her cardiomyopathy has not resolved. Per [facility] recommendations regarding delivery: Vaginal delivery is recommended in the hemodynamically stable patient, with CS reserved for routine obstetric indications, or acute maternal decompensation . Regional anesthesia is not contraindicated ,however anesthesiology should be consulted prior to her planned delivery. Strict I&O with avoidance of intrapartum/ fluid overload. (3) 31 to 32 weeks gestation of Current Visit: Yes Status: Acute Plan to address problem: Continue to monitor status through EFM. Growth u/s ordered for September 24. - Completed on 09/03, 1471 gms. - On 09/26 EFW was 1923 g (29%). BPP twice weekly: Last completed on 09/16 03/02. - On 09/23 was 03/02. - Next BPP 09/26. Subjective - Subjective Date of service: 09/25/21 Principal diagnosis: PPROM, IUP @32.5 wks; Cardiomyopathy, tachycardia Interval history: Pt states that she continues to leak fluids. Denies foul smelling fluid, change in color of fluid. Pt denies vaginal bleeding, ctxs. There is positive m ovement. Patient continues to deny heart palpitations, chest pain, shortness of breath, or feeling lightheaded or dizzy. Patient reports: loss of fluid, movement normal, no new complaints, no vaginal bleeding, no contractions Objective - Vital Signs Vital Signs: Vital Signs - 12hr 09/25/21 09/25/21 09/25/21 05:00 05:38 09:00 Temperature 98.5 F Pulse Rate 109 H Blood Pressure Blood Pressure 112/74 [Left] O2 Sat by Pulse 81 L Oximetry O2 Sat by Pulse 98 Oximetry [ Bilateral] 09/25/21 09/25/21 09/25/21 09:03 09:04 09:05 Temperature 98.5 F Pulse Rate 81 82 84 Blood Pressure 110/65 Blood Pressure [Left] O2 Sat by Pulse 98 81 L Oximetry O2 Sat by Pulse Oximetry [ Bilateral] 09/25/21 09/25/21 09/25/21 12:40 12:54 12:55 Temperature 98.4 F Pulse Rate 97 H 88 86 Blood Pressure 102/56 Blood Pressure 102/56 [Left] O2 Sat by Pulse 98 99 97 Oximetry O2 Sat by Pulse Oximetry [ Bilateral] - Exam Breasts: deferred Cardiovascular: Regular rate Lungs: Normal air movement Abdomen: Present: normal appearance, soft FHR: category 1 Uterine Contraction Monitor Mode: External Uterine Contraction Pattern: Absent Extremities: normal (Reviewed NST from previous night. A few contractions seen. Pt states that she can not feel them. ) - Labs Labs: Abnormal Labs 09/03/21 09/09/21 09/12/21 13:00 08:45 07:43 WBC 11.6 H RBC 3.52 L 3.58 L MCH MCHC RDW 12.7 L 13.0 L Seg Neutrophils % 82.2 H 77.1 H Seg Neutrophils # 7.9 H 8.9 H 09/14/21 13:16 WBC RBC 3.55 L MCH 33 H MCHC 35 H RDW Seg Neutrophils % 75.9 H Seg Neutrophils #
[2021-09-25] MEDS ORDERED: HYDROCORTISONE 1% CREAM 28.4GM TP PRN (16:27)
[2021-09-26] MEDS: ACETAMINOPHEN 500 MG TAB PO PRN (09:09)
[2021-09-26] MEDS: PRENATAL VIT27-FE FUMARATE-FOLIC ACID VIT TAB PO SCH (10:17)
--- NOTE | 2021-09-26 11:50 | Event Note ---
Date: 09/26/21 Agree with public service officer exam and noted. Con't with expectant management as per MFM and cardiolgy recommendations. Delivery at 34 wks, with s/sx of chorio, maternal or distress.
--- NOTE | 2021-09-26 13:50 | Progress Note ---
Assessment and Plan A: 30 y.o. @ 32.6 wks, PPROM, cardiomyopathy. - Patient Problems (1) premature rupture of membranes (PPROM) with unknown onset of labor Current Visit: Yes Status: Acute Plan to address problem: Has completed IV and PO course of antibiotics. BMZ completed on 09/04. Continue to monitor maternal and status. Pt remains afebrile. NO s/sx of infection noted. Continue to monitor temperature. Plan to delivery @ 34 wks or sooner if distress or chorioamnionitis develops (2) Tachycardia Current Visit: Yes Status: Acute Plan to address problem: S/p Echo on 09/14 with EF of 40-45% Mild cardiomyopathy with tachycardia noted: Cardiology recommendations: - Follow up post delivery. - Initiate empiric treatment of hydralazine 25 mg twice daily and metoprolol succinate 25 mg daily after delivery. Per [facility] recommendations and conversation with patient: Pt and partner advised of the increased maternal morbidity and morbidity associated with the cardiomyopathy. Reviewed the need for close surveillance with cardiology to monitor for resolution , recurrence with each subsequent , need for cardiac clearance prior to her next conception, avoidance of further pregnancies if her cardiomyopathy has not resolved. Per [facility] recommendations regarding delivery: Vaginal delivery is recommended in the hemodynamically stable patient, with CS reserved for routine obstetric indications, or acute maternal decompensation . Regional anesthesia is not contraindicated ,however anesthesiology should be consulted prior to her planned delivery. Strict I&O with avoidance of intrapartum/ fluid overload. (3) 31 to 32 weeks gestation of Current Visit: Yes Status: Acute Plan to address problem: Continue to monitor status through EFM. Growth u/s ordered for September 24. - Completed on 09/03, 1471 gms. - On 09/26 EFW was 1923 g (29%). BPP twice weekly: Last completed on 09/16 03/02. - On 09/26 was 03/02. - Next BPP ordered for 09/30. Subjective - Subjective Date of service: 09/26/21 Principal diagnosis: PPROM, IUP @32.5 wks; Cardiomyopathy, tachycardia Interval history: Pt states that she continues to leak fluids. Denies foul smelling fluid, change in color of fluid. Pt denies vaginal bleeding, ctxs. There is positive movement. Patient continues to deny heart palpitations, chest pain, shortness of breath, or feeling lightheaded or dizzy. Patient reports: loss of fluid, movement normal, no new complaints, no vaginal bleeding, no contractions Objective - Vital Signs Vital Signs: Vital Signs - 12hr 09/26/21 09/26/21 09/26/21 08:37 08:38 08:40 Temperature 98.4 F Pulse Rate 83 93 H Respiratory 20 Rate Blood Pressure 109/72 Blood Pressure [Left] O2 Sat by Pulse 87 98 Oximetry O2 Sat by Pulse 98 Oximetry [ Bilateral] 09/26/21 09/26/21 09/26/21 08:42 08:47 08:52 Temperature Pulse Rate 96 H 100 H 92 H Respiratory Rate Blood Pressure Blood Pressure [Left] O2 Sat by Pulse 98 98 98 Oximetry O2 Sat by Pulse Oximetry [ Bilateral] 09/26/21 09/26/21 09/26/21 08:57 09:02 09:07 Temperature Pulse Rate 99 H 92 H 94 H Respiratory Rate Blood Pressure Blood Pressure [Left] O2 Sat by Pulse 98 97 98 Oximetry O2 Sat by Pulse Oximetry [ Bilateral] 09/26/21 09/26/21 09/26/21 09:12 09:17 09:22 Temperature Pulse Rate 101 H 101 H 97 H Respiratory Rate Blood Pressure Blood Pressure [Left] O2 Sat by Pulse 98 97 97 Oximetry O2 Sat by Pulse Oximetry [ Bilateral] 09/26/21 09/26/21 09/26/21 09:27 09:32 09:37 Temperature Pulse Rate 96 H 95 H 97 H Respiratory Rate Blood Pressure Blood Pressure [Left] O2 Sat by Pulse 98 97 98 Oximetry O2 Sat by Pulse Oximetry [ Bilateral] 09/26/21 09/26/21 09/26/21 09:42 09:47 09:52 Temperature Pulse Rate 99 H 85 92 H Respiratory Rate Blood Pressure Blood Pressure [Left] O2 Sat by Pulse 98 98 97 Oximetry O2 Sat by Pulse Oximetry [ Bilateral] 09/26/21 09/26/21 09/26/21 09:57 10:02 10:07 Temperature Pulse Rate 92 H 103 H 100 H Respiratory Rate Blood Pressure Blood Pressure [Left] O2 Sat by Pulse 99 97 96 Oximetry O2 Sat by Pulse Oximetry [ Bilateral] 09/26/21 09/26/21 09/26/21 10:12 12:19 12:20 Temperature 98.6 F Pulse Rate 108 H 107 H 104 H Respiratory 18 Rate Blood Pressure 103/58 Blood Pressure 103/58 [Left] O2 Sat by Pulse 98 97 96 Oximetry O2 Sat by Pulse Oximetry [ Bilateral] - Exam Breasts: deferred Cardiovascular: Regular rate Lungs: Normal air movement Abdomen: Present: normal appearance, soft Vulva: both: normal Uterus: Present: normal FHR: category 1 (NST's) Uterine Contraction Monitor Mode: External Uterine Contraction Pattern: Absent Extremities: normal - Labs Labs: Abnormal Labs 09/03/21 09/09/21 09/12/21 13:00 08:45 07:43 WBC 11.6 H RBC 3.52 L 3.58 L MCH MCHC RDW 12.7 L 13.0 L Seg Neutrophils % 82.2 H 77.1 H Seg Neutrophils # 7.9 H 8.9 H 09/14/21 13:16 WBC RBC 3.55 L MCH 33 H MCHC 35 H RDW Seg Neutrophils % 75.9 H Seg Neutrophils #
[2021-09-26 14:58] LABS: Hematocrit 34.6 % (30.3-42.9); Hemoglobin 11.8 gm/dl (10.1-14.3); Mean Corpuscular HGB Conc 34 % (30-34); Mean Corpuscular Volume 95 fl (79-97); Platelet Count 209 K/mm3 (140-440); Red Blood Count 3.66 M/mm3 (3.65-5.03); Red Cell Distribution Width 12.8 % (13.2-15.2)
--- NOTE | 2021-09-26 16:25 | Ultrasound Report ---
ULTRASOUND BIOPHYSICAL PROFILE INDICATION / CLINICAL INFORMATION: well being. COMPARISON: biophysical profile 09/23/2021. FINDINGS: BREATHING MOVEMENT = 2 GROSS BODY MOVEMENT = 2 TONE = 2 QUALITATIVE AMNIOTIC FLUID VOLUME = 2 TOTAL BIOPHYSICAL SCORE = 8/8 PRESENTATION: Cephalic. HEART RATE (beats per minute): 133 BPM Additional findings: Dedicated images of the kidneys were not performed. IMPRESSION: 1. biophysical profile = 03/02 Scribed by: Lore Graham RDMS, RVT, ZENAIDA Scribed: 09/26/2021 3:17 PM I have reviewed the images, agree with this report, and edited this report as needed. Signer Name: Ray Cruz MD Signed: 09/26/2021 4:20 PM Workstation Name: [id number]
[2021-09-26] MEDS ORDERED: diphenhydrAMINE 25 MG CAP PO PRN (22:00)
[2021-09-27] MEDS: diphenhydrAMINE 25 MG CAP PO PRN (01:19)
--- NOTE | 2021-09-27 09:02 | Progress Note ---
Assessment and Plan Pt laying in bed on her side watching a movie. Pt reports "sinus headache", took Tylenol with some relief; pt requests saline nasal spray. Denies cough, nasal discharge, RUQ pain, SOB, chest pain, vision changes, foul vaginal odor, chills, fever, VB and contractions. Pt reports +FM and continued LOF. POC d/w pt for continued hospitalization until delivery. Precautions reviewed. Questions encouraged. No questions verbalized. Pt verbalizes understanding and agrees to POC . Plan per [facility] recommendations: * Continue hospitalization, Deliver at 34 weeks or sooner if distress or chorioamnionitis. * Monitor for s/sx of labor, chorioamnionitis, distress. * BMZ: course completed on 09/04/21. * Latency IV antibiotics and PO antibiotics completed. * Twice weekly BPP, last completed on 09/26 was 03/02. Next BPP ordered for 09/30. 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 - Initiate empiric treatment of hydralazine 25 mg twice daily and metoprolol succinate 25 mg daily after delivery. She was previously counseled regarding the need for close surveillance with cardiology to monitor for resolution , recurrence with each subsequent , need for cardiac clearance prior to her next conception, avoidance of further pregnancies if her cardiomyopathy has not resolved. Vaginal delivery is recommended in the hemodynamically stable patient, with CS reserved for routine obstetric indications, or acute maternal decompensation . Regional anesthesia is not contraindicated ,however anesthesiology should be consulted prior to her planned delivery. Strict I&O with avoidance of intrapartum/ fluid overload. 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 (5) Tachycardia Current Visit: Yes Status: Acute (6) 33 weeks gestation of Current Visit: Yes Status: Acute Subjective - Subjective Date of service: 09/27/21 Principal diagnosis: PPROM, IUP @33wks; Cardiomyopathy, tachycardia Patient reports: loss of fluid, movement normal, no new complaints, no vaginal bleeding, no contractions Objective - Vital Signs Vital Signs: Vital Signs - 12hr 09/26/21 09/26/21 09/26/21 21:04 21:09 21:13 Temperature Pulse Rate 109 H 121 H 112 H O2 Sat by Pulse 97 96 94 Oximetry O2 Sat by Pulse Oximetry [ Bilateral] 09/26/21 09/26/21 09/26/21 21:14 21:18 21:19 Temperature Pulse Rate 95 H 91 H 116 H O2 Sat by Pulse 96 94 97 Oximetry O2 Sat by Pulse Oximetry [ Bilateral] 09/26/21 09/26/21 09/27/21 21:24 21:29 08:10 Temperature 98.6 F Pulse Rate 110 H 114 H O2 Sat by Pulse 96 98 Oximetry O2 Sat by Pulse Oximetry [ Bilateral] 09/27/21 08:11 Temperature Pulse Rate O2 Sat by Pulse Oximetry O2 Sat by Pulse 98 Oximetry [ Bilateral] - Exam Breasts: deferred Lungs: Normal air movement Abdomen: Present: normal appearance, soft Uterus: Present: normal, other (gravid). Absent: tenderness FHR comments: NST qshift Uterine Contraction Monitor Mode: Palpation Uterine Contraction Pattern: Absent Uterine Tone Measurement Phase: Resting Extremities: normal - Labs Labs: Abnormal Labs 09/03/21 09/09/21 09/12/21 13:00 08:45 07:43 WBC 11.6 H RBC 3.52 L 3.58 L MCH MCHC RDW 12.7 L 13.0 L Seg Neutrophils % 82.2 H 77.1 H Seg Neutrophils # 7.9 H 8.9 H 09/14/21 09/26/21 13:16 14:27 WBC RBC 3.55 L MCH 33 H MCHC 35 H RDW 12.8 L Seg Neutrophils % 75.9 H Seg Neutrophils # Laboratory Results - last 24 hr 09/26/21 09/26/21 14:27 14:27 WBC 7.6 RBC 3.66 Hgb 11.8 Hct 34.6 MCV 95 MCH 32 MCHC 34 RDW 12.8 L Plt Count 209 Blood Type O POSITIVE Antibody Screen Negative
[2021-09-27] MEDS ORDERED: AYR SALINE NASAL GEL 14.1 GM NS PRN (10:05)
[2021-09-27] MEDS: PRENATAL VIT27-FE FUMARATE-FOLIC ACID VIT TAB PO SCH (10:11)
--- NOTE | 2021-09-27 15:47 | Progress Note ---
Assessment and Plan 1. IUP at 33 0/7 weeks' 2. PPROM 3. Cardiomyopathy 1. Continue expectant management, twice weekly BPP, EFW q 2-3 weeks 2. The patient has expressed interest in postponing delivery beyond 34 weeks'; would consider delivery as late as 36 6/7 weeks' if maternal GBS status is negative and the fetus remains stable Subjective - Subjective Date of service: 09/27/21 Principal diagnosis: PPROM, IUP @33wks; Cardiomyopathy, tachycardia Interval history: Feeling well, fetus active; denied contractions Patient reports: loss of fluid, movement normal, no new complaints, no vaginal bleeding, no contractions Objective - Vital Signs Vital Signs: Vital Signs - 12hr 09/27/21 09/27/21 09/27/21 08:10 08:11 10:06 Temperature 98.6 F Pulse Rate Respiratory Rate Blood Pressure Blood Pressure [Left] O2 Sat by Pulse 89 Oximetry O2 Sat by Pulse 98 Oximetry [ Bilateral] 09/27/21 09/27/21 09/27/21 10:07 10:10 10:11 Temperature Pulse Rate 85 92 H Respiratory Rate Blood Pressure 105/63 Blood Pressure [Left] O2 Sat by Pulse 86 98 Oximetry O2 Sat by Pulse Oximetry [ Bilateral] 09/27/21 09/27/21 09/27/21 10:15 10:16 10:21 Temperature 98.8 F Pulse Rate 92 H 120 H 94 H Respiratory 18 Rate Blood Pressure Blood Pressure 105/63 [Left] O2 Sat by Pulse 98 96 97 Oximetry O2 Sat by Pulse Oximetry [ Bilateral] 09/27/21 09/27/21 09/27/21 10:26 10:31 10:36 Temperature Pulse Rate 89 96 H 95 H Respiratory Rate Blood Pressure Blood Pressure [Left] O2 Sat by Pulse 97 97 97 Oximetry O2 Sat by Pulse Oximetry [ Bilateral] 09/27/21 09/27/21 13:04 13:05 Temperature 98.4 F Pulse Rate 79 79 Respiratory Rate Blood Pressure 98/53 Blood Pressure 98/53 [Left] O2 Sat by Pulse Oximetry O2 Sat by Pulse Oximetry [ Bilateral] - Exam Narrative Exam: Abd soft, nontender; FHT's reassuring earlier; most recent BPP 8/8 - Labs Labs: Abnormal Labs 09/03/21 09/09/21 09/12/21 13:00 08:45 07:43 WBC 11.6 H RBC 3.52 L 3.58 L MCH MCHC RDW 12.7 L 13.0 L Seg Neutrophils % 82.2 H 77.1 H Seg Neutrophils # 7.9 H 8.9 H 09/14/21 09/26/21 13:16 14:27 WBC RBC 3.55 L MCH 33 H MCHC 35 H RDW 12.8 L Seg Neutrophils % 75.9 H Seg Neutrophils # Laboratory Results - last 24 hr 09/26/21 14:27 Blood Type O POSITIVE Antibody Screen Negative
[2021-09-28] MEDS: PRENATAL VIT27-FE FUMARATE-FOLIC ACID VIT TAB PO SCH (09:51)
--- NOTE | 2021-09-28 13:31 | Progress Note ---
Assessment and Plan Pt laying in bed on her side resting without complaints. Pt reports +FM. Precautions reviewed. POC d/w pt with new recommendations. All questions addressed. Plan per [facility] recommendations: * Continue hospitalization * Deliver at 34 weeks or sooner if distress or chorioamnionitis. Per Dr. Jackson, delivery as late as 36 6/7 weeks' if maternal GBS status is negative and the fetus remains stable. GBS ordered and discussed with pt. Per lab, no supply in stock today; culture to be performed DANIEL * Monitor for s/sx of labor, chorioamnionitis, distress. * BMZ: course completed on 09/04/21. * Latency IV antibiotics and PO antibiotics completed. * Twice weekly BPP, last completed on 09/26 was 03/02. Next BPP ordered for 09/30. 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 - Follow up post delivery for repeat echo . - Initiate empiric treatment of hydralazine 25 mg twice daily and metoprolol succinate 25 mg daily after delivery. She was previously counseled regarding the need for close surveillance with cardiology to monitor for resolution , recurrence with each subsequent , need for cardiac clearance prior to her next conception, avoidance of further pregnancies if her cardiomyopathy has not resolved. Vaginal delivery is recommended in the hemodynamically stable patient, with CS reserved for routine obstetric indications, or acute maternal decompensation . Regional anesthesia is not contraindicated ,however anesthesiology should be consulted prior to her planned delivery. Strict I&O with avoidance of intrapartum/ fluid overload. 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 (5) Tachycardia Current Visit: Yes Status: Acute (6) 33 weeks gestation of Current Visit: Yes Status: Acute Subjective - Subjective Date of service: 09/28/21 Principal diagnosis: PPROM, IUP @33.1 wks; Cardiomyopathy, tachycardia Patient reports: loss of fluid, movement normal, no new complaints, no vaginal bleeding, no contractions Objective - Vital Signs Vital Signs: Vital Signs - 12hr 09/28/21 09/28/21 09/28/21 08:00 08:03 09:11 Temperature 98.4 F Pulse Rate 81 81 Respiratory 18 Rate Blood Pressure 120/75 Blood Pressure 120/75 [Left] O2 Sat by Pulse 98 Oximetry O2 Sat by Pulse 97 Oximetry [ Bilateral] - Exam Breasts: deferred Cardiovascular: Regular rate, Other (occasional tachycardia) Lungs: Normal air movement Abdomen: Present: normal appearance, soft. Absent: distention, tenderness, guarding Vulva: both: normal Uterus: Present: normal, other (gravid) FHR comments: nst qshift Uterine Contraction Monitor Mode: Palpation Uterine Contraction Pattern: Absent Uterine Tone Measurement Phase: Resting Extremities: normal - Labs Labs: Abnormal Labs 09/03/21 09/09/21 09/12/21 13:00 08:45 07:43 WBC 11.6 H RBC 3.52 L 3.58 L MCH MCHC RDW 12.7 L 13.0 L Seg Neutrophils % 82.2 H 77.1 H Seg Neutrophils # 7.9 H 8.9 H 09/14/21 09/26/21 13:16 14:27 WBC RBC 3.55 L MCH 33 H MCHC 35 H RDW 12.8 L Seg Neutrophils % 75.9 H Seg Neutrophils #
--- NOTE | 2021-09-29 07:48 | Progress Note ---
Assessment and Plan A: 30 y.o. @ 33.1 wks, PPROM, cardiomyopathy, tachycardia - Patient Problems (1) premature rupture of membranes (PPROM) with unknown onset of labor Current Visit: Yes Status: Acute Plan to address problem: Has completed IV and PO course of antibiotics. BMZ completed on 09/04. Continue to monitor maternal and status. Pt remains afebrile. NO s/sx of infection noted. Continue to monitor maternal temperature. Per [facility] recommendations: The patient has expressed interest in postponing delivery beyond 34 weeks'; would consider delivery as late as 36 6/7 weeks' if maternal GBS status is negative and the fetus remains stable (2) Tachycardia Current Visit: Yes Status: Acute Plan to address problem: S/p Echo on 09/14 with EF of 40-45% Mild cardiomyopathy with tachycardia noted: Cardiology recommendations: - Follow up post delivery. - Initiate empiric treatment of hydralazine 25 mg twice daily and metoprolol succinate 25 mg daily after delivery. Per [facility] recommendations and conversation with patient: Pt and partner advised of the increased maternal morbidity and morbidity associated with the cardiomyopathy. Reviewed the need for close surveillance with cardiology to monitor for resolution , recurrence with each subsequent , need for cardiac clearance prior to her next conception, avoidance of further pregnancies if her cardiomyopathy has not resolved. Per [facility] recommendations regarding delivery: Vaginal delivery is recommended in the hemodynamically stable patient, with CS reserved for routine obstetric indications, or acute maternal decompensation. Regional anesthesia is not contraindicated ,however anesthesiology should be consulted prior to her planned delivery. Strict I&O with avoidance of intrapartum/ fluid overload. (3) 33 weeks gestation of Current Visit: Yes Status: Acute Plan to address problem: Continue to monitor status through EFM. Growth u/s ordered for September 24. - Completed on 09/03, 1471 gms. - On 09/26 EFW was 1923 g (29%). BPP twice weekly: - On 09/26 was 03/02. - Next BPP ordered for 09/30. Subjective - Subjective Date of service: 09/29/21 Principal diagnosis: PPROM, IUP @33.2 wks; Cardiomyopathy, tachycardia Interval history: Pt states that she continues to leak fluids. Denies foul smelling fluid, change in color of fluid. Pt denies vaginal bleeding, ctxs. There is positive movement. Patient continues to deny heart palpitations, chest pain, shortness of breath, or feeling lightheaded or dizzy. Patient reports: loss of fluid, movement normal, no new complaints, no vaginal bleeding, no contractions Objective - Vital Signs Vital Signs: Vital Signs - 12hr 09/28/21 09/28/21 09/28/21 19:52 19:54 19:57 Temperature Pulse Rate 68 123 H 127 H Respiratory Rate Blood Pressure 113/62 Blood Pressure [Left] O2 Sat by Pulse 82 L 96 Oximetry O2 Sat by Pulse Oximetry [ Bilateral] 09/28/21 09/28/21 09/28/21 19:58 20:00 20:02 Temperature 99.2 F Pulse Rate 120 H 123 H Respiratory 18 Rate Blood Pressure Blood Pressure 113/62 [Left] O2 Sat by Pulse 95 96 Oximetry O2 Sat by Pulse 97 Oximetry [ Bilateral] 09/28/21 09/28/21 09/28/21 20:07 20:12 20:16 Temperature Pulse Rate 119 H 116 H 117 H Respiratory Rate Blood Pressure Blood Pressure [Left] O2 Sat by Pulse 96 97 94 Oximetry O2 Sat by Pulse Oximetry [ Bilateral] 09/28/21 09/28/21 09/28/21 20:17 20:22 20:27 Temperature Pulse Rate 121 H 118 H 116 H Respiratory Rate Blood Pressure Blood Pressure [Left] O2 Sat by Pulse 98 97 97 Oximetry O2 Sat by Pulse Oximetry [ Bilateral] 09/28/21 09/28/21 09/28/21 20:32 20:37 20:39 Temperature Pulse Rate 111 H 118 H Respiratory Rate Blood Pressure Blood Pressure [Left] O2 Sat by Pulse 97 96 84 Oximetry O2 Sat by Pulse Oximetry [ Bilateral] 09/28/21 09/28/21 09/28/21 20:42 20:47 22:07 Temperature 99.0 F Pulse Rate 114 H 114 H Respiratory Rate Blood Pressure Blood Pressure [Left] O2 Sat by Pulse 96 95 Oximetry O2 Sat by Pulse Oximetry [ Bilateral] 09/29/21 09/29/21 09/29/21 00:13 00:14 04:08 Temperature 98.8 F Pulse Rate 102 H 100 H 115 H Respiratory 18 Rate Blood Pressure 106/55 Blood Pressure 106/55 [Left] O2 Sat by Pulse 94 99 95 Oximetry O2 Sat by Pulse Oximetry [ Bilateral] 09/29/21 09/29/21 04:09 04:10 Temperature 98.2 F Pulse Rate 117 H 99 H Respiratory 18 Rate Blood Pressure 98/60 Blood Pressure 98/60 [Left] O2 Sat by Pulse 89 99 Oximetry O2 Sat by Pulse Oximetry [ Bilateral] - Labs Labs: Abnormal Labs 09/03/21 09/09/21 09/12/21 13:00 08:45 07:43 WBC 11.6 H RBC 3.52 L 3.58 L MCH MCHC RDW 12.7 L 13.0 L Seg Neutrophils % 82.2 H 77.1 H Seg Neutrophils # 7.9 H 8.9 H 09/14/21 09/26/21 13:16 14:27 WBC RBC 3.55 L MCH 33 H MCHC 35 H RDW 12.8 L Seg Neutrophils % 75.9 H Seg Neutrophils #
[2021-09-29] MEDS: PRENATAL VIT27-FE FUMARATE-FOLIC ACID VIT TAB PO SCH (10:12)
--- NOTE | 2021-09-29 17:43 | Progress Note ---
Assessment and Plan 1. IUP at 33 02/7 weeks' 2. PPROM 3. Cardiomyopathy 1. Continue expectant management, twice weekly BPP, EFW q 2-3 weeks 2. Deliver between 34, and if GBS negative, and otherwise stable as late as 36 6/7 weeks' Subjective - Subjective Date of service: 09/29/21 Principal diagnosis: PPROM, IUP @33.2 wks; Cardiomyopathy, tachycardia Interval history: Feeling well, fetus active; denies contractions Patient reports: loss of fluid, movement normal, no new complaints, no vaginal bleeding, no contractions Objective - Vital Signs Vital Signs: Vital Signs - 12hr 09/29/21 09/29/21 09/29/21 09:15 09:29 09:30 Temperature 97.8 F Pulse Rate 90 Respiratory 18 Rate Blood Pressure Blood Pressure 117/58 [Left] O2 Sat by Pulse 66 L 99 Oximetry O2 Sat by Pulse 99 Oximetry [ Bilateral] 09/29/21 09/29/21 09/29/21 09:34 09:35 09:39 Temperature Pulse Rate 105 H 90 91 H Respiratory Rate Blood Pressure 117/58 Blood Pressure [Left] O2 Sat by Pulse 99 98 Oximetry O2 Sat by Pulse Oximetry [ Bilateral] 09/29/21 09/29/21 09/29/21 09:44 09:49 09:54 Temperature Pulse Rate 94 H 104 H 81 Respiratory Rate Blood Pressure Blood Pressure [Left] O2 Sat by Pulse 98 100 99 Oximetry O2 Sat by Pulse Oximetry [ Bilateral] 09/29/21 09/29/21 09/29/21 09:59 10:04 16:06 Temperature Pulse Rate 95 H 95 H 73 Respiratory Rate Blood Pressure Blood Pressure [Left] O2 Sat by Pulse 98 98 100 Oximetry O2 Sat by Pulse Oximetry [ Bilateral] 09/29/21 09/29/21 16:07 16:10 Temperature 98.3 F Pulse Rate 73 73 Respiratory Rate Blood Pressure 110/60 Blood Pressure 110/60 [Left] O2 Sat by Pulse Oximetry O2 Sat by Pulse Oximetry [ Bilateral] - Exam Narrative Exam: Abd soft, nontender; FHT's reassuring earlier; most recent BPP 03/02 - Labs Labs: Abnormal Labs 09/03/21 09/09/21 09/12/21 13:00 08:45 07:43 WBC 11.6 H RBC 3.52 L 3.58 L MCH MCHC RDW 12.7 L 13.0 L Seg Neutrophils % 82.2 H 77.1 H Seg Neutrophils # 7.9 H 8.9 H 09/14/21 09/26/21 13:16 14:27 WBC RBC 3.55 L MCH 33 H MCHC 35 H RDW 12.8 L Seg Neutrophils % 75.9 H Seg Neutrophils #
--- NOTE | 2021-09-30 07:49 | Progress Note ---
Assessment and Plan 30y/o @ 33+3 weeks. PPROM . Maternal tachycardia with cardiomyopathy. Cardiology following. Pt resting in bed, denies any concerns at this time. Pt is in good spirts. States leakage still present mostly at night, denies ctx. No ABD tenderness, no foul smelling fluid, or fever. Will continue to follow recommendations per [facility]: * Continue hospitalization, Deliver at 34 weeks or sooner if distress or chorioamnionitis. * Monitor for s/sx of labor, chorioamnionitis, distress. * BMZ: course completed 09/04/2021. * Latency IV antibiotics and PO antibiotics completed. * Twice weekly BPP, Next ordered for today * Growth scan [id number] (last growth scan 09/24 29th% EFW 4#4oz, SO 15, cephalic). * Continue to monitor maternal temperature. 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 - Initiate empiric treatment of hydralazine 25 mg twice daily and metoprolol succinate 25 mg daily after delivery. Per [facility] recommendations and conversation with patient: Pt and partner advised of the increased maternal morbidity and morbidity associated with the cardiomyopathy. Reviewed the need for close surveillance with cardiology to monitor for resolution , recurrence with each subsequent , need for cardiac clearance prior to her next conception, avoidance of further pregnancies if her cardiomyopathy has not resolved. Per [facility] recommendations regarding delivery: Vaginal delivery is recommended in the hemodynamically stable patient, with CS reserved for routine obstetric indications, or acute maternal decompensation. Regional anesthesia is not contraindicated ,however anesthesiology should be consulted prior to her planned delivery. Strict I&O with avoidance of intrapartum/ fluid overload. Anesthesia has seen patient and will continue to follow. (6) 33 weeks gestation of Current Visit: Yes Status: Acute Plan to address problem: NST q Shift IOL to start 10/04 @ 34wks d/t + GBS (7) GBS (group B Streptococcus carrier), +RV culture, currently Current Visit: Yes Status: Acute Plan to address problem: IOL 10/04/2021 @ 34+0 weeks IV abx q4hrs while in labor Subjective - Subjective Date of service: 09/30/21 Principal diagnosis: PPROM, IUP @33.3 wks; Cardiomyopathy, tachycardia Patient reports: loss of fluid, movement normal, no new complaints, no vaginal bleeding, no contractions Objective - Vital Signs Vital Signs: Vital Signs - 12hr 09/29/21 09/29/21 09/29/21 20:34 20:36 20:39 Temperature Pulse Rate 88 Respiratory Rate Blood Pressure Blood Pressure [Left] O2 Sat by Pulse 87 81 L Oximetry O2 Sat by Pulse 99 Oximetry [ Bilateral] 09/29/21 09/29/21 09/29/21 20:42 20:44 20:47 Temperature 98.9 F Pulse Rate 83 88 88 Respiratory 18 Rate Blood Pressure 110/69 Blood Pressure 110/69 [Left] O2 Sat by Pulse 99 97 Oximetry O2 Sat by Pulse Oximetry [ Bilateral] 09/29/21 09/29/21 09/29/21 20:51 20:52 20:57 Temperature Pulse Rate 85 95 H 89 Respiratory Rate Blood Pressure Blood Pressure [Left] O2 Sat by Pulse 94 95 95 Oximetry O2 Sat by Pulse Oximetry [ Bilateral] 09/29/21 09/29/21 09/29/21 21:01 21:02 21:07 Temperature Pulse Rate 88 106 H 85 Respiratory Rate Blood Pressure Blood Pressure [Left] O2 Sat by Pulse 94 96 94 Oximetry O2 Sat by Pulse Oximetry [ Bilateral] 09/29/21 09/29/21 09/29/21 21:12 21:17 21:18 Temperature Pulse Rate 85 95 H 99 H Respiratory Rate Blood Pressure Blood Pressure [Left] O2 Sat by Pulse 98 96 91 Oximetry O2 Sat by Pulse Oximetry [ Bilateral] 09/29/21 21:22 Temperature Pulse Rate 81 Respiratory Rate Blood Pressure Blood Pressure [Left] O2 Sat by Pulse 97 Oximetry O2 Sat by Pulse Oximetry [ Bilateral] - Exam Breasts: normal Cardiovascular: Regular rate Lungs: Normal air movement Abdomen: Present: normal appearance, soft. Absent: distention, tenderness, guarding Uterus: Present: normal, fundal height above umbilicus FHR: auscultation normal Uterine Contraction Monitor Mode: Palpation Uterine Contraction Pattern: Absent Uterine Tone Measurement Phase: Resting Extremities: normal - Labs Labs: Abnormal Labs 09/03/21 09/09/21 09/12/21 13:00 08:45 07:43 WBC 11.6 H RBC 3.52 L 3.58 L MCH MCHC RDW 12.7 L 13.0 L Seg Neutrophils % 82.2 H 77.1 H Seg Neutrophils # 7.9 H 8.9 H 09/14/21 09/26/21 13:16 14:27 WBC RBC 3.55 L MCH 33 H MCHC 35 H RDW 12.8 L Seg Neutrophils % 75.9 H Seg Neutrophils #
--- NOTE | 2021-09-30 09:56 | Ultrasound Report ---
ULTRASOUND OBSTETRIC LIMITED ULTRASOUND BIOPHYSICAL PROFILE INDICATION / CLINICAL INFORMATION: well being. TECHNIQUE: Transabdominal. COMPARISON: None available. FINDINGS: BREATHING MOVEMENT = 2 GROSS BODY MOVEMENT = 2 TONE = 2 QUALITATIVE AMNIOTIC FLUID VOLUME = 2 TOTAL BIOPHYSICAL SCORE = 8/8 HEART RATE (beats per minute): 166 AMNIOTIC FLUID INDEX (cm): Single fluid pocket was measured at 4.4 cm. PRESENTATION: Cephalic. ADDITIONAL FINDINGS: None. IMPRESSION: 1. Biophysical Score = 8/8 Signer Name: Bienvenido Sidhu MD Signed: 09/30/2021 9:51 AM Workstation Name: [id number]
[2021-09-30] MEDS: PRENATAL VIT27-FE FUMARATE-FOLIC ACID VIT TAB PO SCH ×2 (10:04→11:02)
[2021-09-30] MEDS: diphenhydrAMINE 25 MG CAP PO PRN (10:04)
[2021-09-30] MEDS: ACETAMINOPHEN 500 MG TAB PO PRN ×2 (10:04→18:50)
--- NOTE | 2021-09-30 15:33 | Event Note ---
Date: 09/30/21 GBS is positive, Dr. Mojica with [facility] made aware. Per Dr. Mojica, patient does not need abx until she is activly laboring. Induction is scheduled for 10/04/2021.
[2021-10-01] MEDS: PRENATAL VIT27-FE FUMARATE-FOLIC ACID VIT TAB PO SCH (10:04)
--- NOTE | 2021-10-01 14:43 | Progress Note ---
Assessment and Plan A 1: IUP at 33 4/7 weeks gestation s/p BMZ 10 EFW 1471gm 09/03 3/2 EFW 4lb 4oz 29% 2. PROM s/p latency antibiotics Continue to monitor for chorioamnionitis, labor, distress Continue twice weekly testing , growth scan q 3 weeks Delivery is advised at 34 0/7wks gestation 3. 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 - Initiate empiric treatment of hydralazine 25 mg twice daily and metoprolol succinate 25 mg daily after delivery. She was previously counseled regarding the need for close surveillance with cardiology to monitor for resolution , recurrence with each subsequent , need for cardiac clearance prior to her next conception, avoidance of further pregnancies if her cardiomyopathy has not resolved. Vaginal delivery is recommended in the hemodynamically stable patient, with CS reserved for routine obstetric indications, or acute maternal decompensation . Regional anesthesia is not contraindicated ,however anesthesiology should be consulted prior to her planned delivery. Strict I&O with avoidance of intrapartum/ fluid overload. Subjective - Subjective Principal diagnosis: PPROM, IUP @33.3 wks; Cardiomyopathy, tachycardia Interval history: No complaints. Denies contractions, bleeding or discharge. Reports good movement. Patient reports: loss of fluid, movement normal, no new complaints, no vaginal bleeding, no contractions Objective - Vital Signs Vital Signs: Vital Signs - 12hr 10/01/21 10/01/21 10/01/21 07:30 10:00 10:01 Temperature 98.2 F 98.2 F Pulse Rate 82 Respiratory 18 18 Rate Blood Pressure O2 Sat by Pulse 83 L Oximetry O2 Sat by Pulse 98 Oximetry [ Bilateral] 10/01/21 10/01/21 10/01/21 10:03 10:06 13:48 Temperature Pulse Rate 94 H 101 H 142 H Respiratory Rate Blood Pressure 109/71 114/70 O2 Sat by Pulse 99 83 L Oximetry O2 Sat by Pulse Oximetry [ Bilateral] 10/01/21 13:50 Temperature 97.9 F Pulse Rate Respiratory 18 Rate Blood Pressure O2 Sat by Pulse 99 Oximetry O2 Sat by Pulse Oximetry [ Bilateral] - Exam Abdomen: Present: soft - Labs Labs: Abnormal Labs 09/03/21 09/09/21 09/12/21 13:00 08:45 07:43 WBC 11.6 H RBC 3.52 L 3.58 L MCH MCHC RDW 12.7 L 13.0 L Seg Neutrophils % 82.2 H 77.1 H Seg Neutrophils # 7.9 H 8.9 H 09/14/21 09/26/21 13:16 14:27 WBC RBC 3.55 L MCH 33 H MCHC 35 H RDW 12.8 L Seg Neutrophils % 75.9 H Seg Neutrophils #
--- NOTE | 2021-10-01 15:28 | Progress Note ---
Assessment and Plan A: 30 y.o. @ 33.4 wks, PPROM, cardiomyopathy, tachycardia. - Patient Problems (1) premature rupture of membranes (PPROM) with unknown onset of labor Current Visit: Yes Status: Acute Plan to address problem: IOL to begin on 10/04. Limit vaginal exams during IOL. GBS Positive: Antibiotics to be given while in active labor. Pain management: IV pain medication and epidural. Strict I&O with avoidance of intrapartum/ fluid overload. Has completed IV and PO course of antibiotics. BMZ completed on 09/04. Continue to monitor maternal and status. Pt remains afebrile. NO s/sx of infection noted. Continue to monitor maternal temperature. (2) Tachycardia Current Visit: Yes Status: Acute Plan to address problem: S/p Echo on 09/14 with EF of 40-45% Mild cardiomyopathy with tachycardia noted: Cardiology recommendations: - Follow up post delivery. - Initiate empiric treatment of hydralazine 25 mg twice daily and metoprolol succinate 25 mg daily after delivery. Per [facility] recommendations and conversation with patient: Pt and partner advised of the increased maternal morbidity and morbidity associated with the cardiomyopathy. Reviewed the need for close surveillance with cardiology to monitor for resolution , recurrence with each subsequent , need for cardiac clearance prior to her next conception, avoidance of further pregnancies if her cardiomyopathy has not resolved. Per [facility] recommendations regarding delivery: Vaginal delivery is recommended in the hemodynamically stable patient, with CS reserved for routine obstetric indications, or acute maternal decompensation. Regional anesthesia is not contraindicated ,however anesthesiology should be consulted prior to her planned delivery. Strict I&O with avoidance of intrapartum/ fluid overload. (3) 33 weeks gestation of Current Visit: Yes Status: Acute Plan to address problem: Continue to monitor status through EFM. Growth ultrasounds completed. - On 09/03, 1471 gms. - On 09/26 EFW was 1923 g (29%). BPP twice weekly with the last one on 10/03 before IOL: - On 09/30 was 03/02. - Next BPP ordered for 10/03. Subjective - Subjective Date of service: 10/01/21 Principal diagnosis: PPROM, IUP @33.4 wks; Cardiomyopathy, tachycardia Interval history: Pt states that she continues to leak fluids mostly at night. Denies foul smelling fluid, change in color of fluid. Pt denies vaginal bleeding, ctxs. There is positive movement. Patient continues to deny heart palpitations, chest pain, shortness of breath, or feeling lightheaded or dizzy. We discussed IOL to start on Wednesday AM. Discussed methods used for IOL and an IOL may take 2-3 days. Allowed for questions. All concerns and questions addressed during assessment. Patient reports: loss of fluid, movement normal, no new complaints, no vaginal bleeding, no contractions Objective - Vital Signs Vital Signs: Vital Signs - 12hr 10/01/21 10/01/21 10/01/21 07:30 10:00 10:01 Temperature 98.2 F 98.2 F Pulse Rate 82 Respiratory 18 18 Rate Blood Pressure O2 Sat by Pulse 83 L Oximetry O2 Sat by Pulse 98 Oximetry [ Bilateral] 10/01/21 10/01/21 10/01/21 10:03 10:06 13:48 Temperature Pulse Rate 94 H 101 H 142 H Respiratory Rate Blood Pressure 109/71 114/70 O2 Sat by Pulse 99 83 L Oximetry O2 Sat by Pulse Oximetry [ Bilateral] 10/01/21 13:50 Temperature 97.9 F Pulse Rate Respiratory 18 Rate Blood Pressure O2 Sat by Pulse 99 Oximetry O2 Sat by Pulse Oximetry [ Bilateral] - Exam Breasts: deferred Cardiovascular: Regular rate Lungs: Normal air movement Abdomen: Present: normal appearance, soft Uterus: Present: normal FHR: category 1 (NST's have been category 1. ) Uterine Contraction Pattern: Absent Extremities: normal - Labs Labs: Abnormal Labs 09/03/21 09/09/21 09/12/21 13:00 08:45 07:43 WBC 11.6 H RBC 3.52 L 3.58 L MCH MCHC RDW 12.7 L 13.0 L Seg Neutrophils % 82.2 H 77.1 H Seg Neutrophils # 7.9 H 8.9 H 09/14/21 09/26/21 13:16 14:27 WBC RBC 3.55 L MCH 33 H MCHC 35 H RDW 12.8 L Seg Neutrophils % 75.9 H Seg Neutrophils #
[2021-10-01] MEDS ORDERED: ZOLPIDEM 5 MG TAB PO PRN (22:00)
--- NOTE | 2021-10-02 08:57 | Progress Note ---
Assessment and Plan Pt sitting in bed without complaints. SO present and supportive at bedside. Pt reports +FM. Precautions reviewed. Pt denies all complaints. POC d/w pt. Questions encouraged and addressed. Pt and SO verbalize understanding and agree to POC. Plan per [facility] recommendations: * IOL scheduled to begin on 10/04. Limit vaginal exams during IOL. GBS Positive: Antibiotics to be given while in active labor. * Deliver at 34 weeks or sooner if distress or chorioamnionitis. * Monitor for s/sx of labor, chorioamnionitis, distress. * BMZ: course completed on 09/04/21. * Latency IV antibiotics and PO antibiotics completed. * Twice weekly BPP, last completed on 09/30 was 03/02. Next BPP ordered for 10/03. 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 - Follow up post delivery for repeat echo . - Initiate empiric treatment of hydralazine 25 mg twice daily and metoprolol succinate 25 mg daily after delivery. She was previously counseled regarding the need for close surveillance with cardiology to monitor for resolution , recurrence with each subsequent , need for cardiac clearance prior to her next conception, avoidance of further pregnancies if her cardiomyopathy has not resolved. Vaginal delivery is recommended in the hemodynamically stable patient, with CS reserved for routine obstetric indications, or acute maternal decompensation . Regional anesthesia is not contraindicated ,however anesthesiology should be consulted prior to her planned delivery. Strict I&O with avoidance of intrapartum/ fluid overload. 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 (5) Tachycardia Current Visit: Yes Status: Acute (6) 33 weeks gestation of Current Visit: Yes Status: Acute Subjective - Subjective Date of service: 10/02/21 Principal diagnosis: PPROM, IUP @33.5 wks; Cardiomyopathy, tachycardia Patient reports: loss of fluid, movement normal, no new complaints, no vaginal bleeding, no contractions Objective - Vital Signs Vital Signs: Vital Signs - 12hr 10/01/21 10/01/21 10/01/21 21:30 22:20 22:25 Temperature 98.8 F Pulse Rate 90 98 H Respiratory Rate Blood Pressure Blood Pressure [Left] O2 Sat by Pulse 98 98 Oximetry O2 Sat by Pulse Oximetry [ Bilateral] 10/01/21 10/01/21 10/01/21 22:30 22:35 22:40 Temperature Pulse Rate 97 H 93 H 92 H Respiratory Rate Blood Pressure Blood Pressure [Left] O2 Sat by Pulse 98 97 98 Oximetry O2 Sat by Pulse Oximetry [ Bilateral] 10/01/21 10/01/21 10/01/21 22:45 22:50 22:55 Temperature Pulse Rate 94 H 97 H 86 Respiratory Rate Blood Pressure Blood Pressure [Left] O2 Sat by Pulse 97 96 97 Oximetry O2 Sat by Pulse Oximetry [ Bilateral] 10/01/21 10/01/21 10/02/21 23:00 23:30 02:10 Temperature 98.5 F 98.9 F Pulse Rate 94 H Respiratory Rate Blood Pressure Blood Pressure [Left] O2 Sat by Pulse 98 Oximetry O2 Sat by Pulse Oximetry [ Bilateral] 10/02/21 10/02/21 10/02/21 07:09 07:10 07:11 Temperature 99.3 F Pulse Rate 70 79 Respiratory 16 Rate Blood Pressure 105/58 Blood Pressure 105/58 [Left] O2 Sat by Pulse 85 98 98 Oximetry O2 Sat by Pulse Oximetry [ Bilateral] 10/02/21 10/02/21 07:12 07:16 Temperature Pulse Rate 86 Respiratory Rate Blood Pressure Blood Pressure [Left] O2 Sat by Pulse 99 Oximetry O2 Sat by Pulse 100 Oximetry [ Bilateral] - Exam Breasts: deferred Cardiovascular: Regular rate, Other (occasional tachycardia) Abdomen: Present: normal appearance, soft. Absent: distention, tenderness, guarding FHR: auscultation normal, category 1 FHR comments: NST's qshift all category 1 per RN Uterine Contraction Monitor Mode: Palpation Uterine Contraction Pattern: Absent Uterine Tone Measurement Phase: Resting Extremities: normal - Labs Labs: Abnormal Labs 09/03/21 09/09/21 09/12/21 13:00 08:45 07:43 WBC 11.6 H RBC 3.52 L 3.58 L MCH MCHC RDW 12.7 L 13.0 L Seg Neutrophils % 82.2 H 77.1 H Seg Neutrophils # 7.9 H 8.9 H 09/14/21 09/26/21 13:16 14:27 WBC RBC 3.55 L MCH 33 H MCHC 35 H RDW 12.8 L Seg Neutrophils % 75.9 H Seg Neutrophils #
[2021-10-02] MEDS: PRENATAL VIT27-FE FUMARATE-FOLIC ACID VIT TAB PO SCH (11:56)
--- NOTE | 2021-10-02 17:05 | Progress Note ---
Assessment and Plan 1: IUP at 33 5/7 weeks gestation s/p BMZ 09/04 EFW 1471gm 09/03 09/24 EFW 4lb 4oz 29% 2. PROM s/p latency antibiotics Continue to monitor for chorioamnionitis, labor, distress Continue twice weekly testing , growth scan q 3 weeks Delivery is advised at 34 0/7wks gestation -schedule for 10/04 3. 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 - Initiate empiric treatment of hydralazine 25 mg twice daily and metoprolol succinate 25 mg daily after delivery. She was reminded of the need for f/u with cardiology , need for cardiac clearance prior to her next conception, avoidance of further pregnancies if her cardiomyopathy has not resolved. Strict I&O with avoidance of intrapartum/ fluid overload. Regional anesthesia is not contraindicated ,however anesthesiology should be consulted prior to her planned delivery. Subjective - Subjective Date of service: 10/02/21 Principal diagnosis: PPROM, IUP @33.5 wks; Cardiomyopathy, tachycardia Interval history: She has no obstetric or cardiac complaints and is scheduled for delivery on 10/04 Patient reports: loss of fluid, movement normal, no new complaints, no vaginal bleeding, no contractions Objective - Vital Signs Vital Signs: Vital Signs - 12hr 10/02/21 10/02/21 10/02/21 07:09 07:10 07:11 Temperature 99.3 F Pulse Rate 70 79 Respiratory 16 Rate Blood Pressure 105/58 Blood Pressure 105/58 [Left] O2 Sat by Pulse 85 98 98 Oximetry O2 Sat by Pulse Oximetry [ Bilateral] 10/02/21 10/02/21 10/02/21 07:12 07:16 10:15 Temperature Pulse Rate 86 54 L Respiratory Rate Blood Pressure Blood Pressure [Left] O2 Sat by Pulse 99 86 Oximetry O2 Sat by Pulse 100 Oximetry [ Bilateral] 10/02/21 10/02/21 10/02/21 10:50 10:51 10:52 Temperature 97.6 F Pulse Rate 98 H 88 Respiratory 16 Rate Blood Pressure 112/74 Blood Pressure 112/74 [Left] O2 Sat by Pulse 81 L 100 Oximetry O2 Sat by Pulse Oximetry [ Bilateral] - Exam Narrative Exam: Sitting up in bed NAD - Labs Labs: Abnormal Labs 02/04/1609/09/21 09/12/21 13:00 08:45 07:43 WBC 11.6 H RBC 3.52 L 3.58 L MCH MCHC RDW 12.7 L 13.0 L Seg Neutrophils % 82.2 H 77.1 H Seg Neutrophils # 7.9 H 8.9 H 09/14/21 09/26/21 13:16 14:27 WBC RBC 3.55 L MCH 33 H MCHC 35 H RDW 12.8 L Seg Neutrophils % 75.9 H Seg Neutrophils # - Results US- obstetric: report reviewed
[2021-10-03] MEDS: PRENATAL VIT27-FE FUMARATE-FOLIC ACID VIT TAB PO SCH (09:58)
--- NOTE | 2021-10-03 12:48 | Ultrasound Report ---
ULTRASOUND OBSTETRIC LIMITED ULTRASOUND BIOPHYSICAL PROFILE INDICATION / CLINICAL INFORMATION: [facility]. Clinical Gestational Age (GA) in weeks, days: 33 weeks 6 days TECHNIQUE: Transabdominal. COMPARISON: Ultrasound biophysical profile 09/30/2021. FINDINGS: BREATHING MOVEMENT = 2 GROSS BODY MOVEMENT = 2 TONE = 2 QUALITATIVE AMNIOTIC FLUID VOLUME = 2 TOTAL BIOPHYSICAL SCORE = 8/8 MEASUREMENTS: - Biparietal Diameter = 8.5 cm = 34.1 weeks.days - Head Circumference = 30.9 cm = 34.3 weeks.days - Abdominal Circumference = 30.8 cm = 34.5 weeks.days - Femur Length = 6.3 cm = 32.4 weeks.days - Estimated Weight (in grams, if calculated): 2335 g HEART RATE (beats per minute): 151 bpm AMNIOTIC FLUID INDEX (cm) = 8.5 cm (normal = 7-24 cm) PRESENTATION: Cephalic. AVERAGE ULTRASOUND AGE (AUA) in weeks.days = 34 weeks 0 days ADDITIONAL FINDINGS: None. IMPRESSION: 1. Biophysical Score = 8/8 2. No sonographic abnormality identified. Scribed by: Lore Graham RDMS, RVT, ZENAIDA Scribed: 10/03/2021 10:52 AM I have reviewed the images, agree with this report, and edited this report as needed. Signer Name: Sam Castillo MD Signed: 10/03/2021 12:43 PM Workstation Name: [id number]
--- NOTE | 2021-10-03 12:49 | Progress Note ---
Assessment and Plan Pt resting in bed without complaints. Pt reports +FM. Precautions reviewed. Pt denies all complaints. POC d/w pt. Questions encouraged. No questions or concerns verbalized. Pt verbalizes understanding and agrees to POC. Plan per [facility] recommendations: * IOL scheduled to begin tomorrow. IOL options d/w pt, plan to limit vaginal exams during IOL, pt may have IV medications and epidural for pain management. GBS Positive: Antibiotics to be given while in active labor. * Deliver at 34 weeks or sooner if distress or chorioamnionitis. * Monitor for s/sx of labor, chorioamnionitis, distress. * BMZ: course completed on 09/04/21. * Latency IV antibiotics and PO antibiotics completed. * Twice weekly BPP, last completed today was 03/02. 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 - Follow up post delivery for repeat echo . - Initiate empiric treatment of hydralazine 25 mg twice daily and metoprolol succinate 25 mg daily after delivery. She was previously counseled regarding the need for close surveillance with cardiology to monitor for resolution , recurrence with each subsequent , need for cardiac clearance prior to her next conception, avoidance of further pregnancies if her cardiomyopathy has not resolved. Vaginal delivery is recommended in the hemodynamically stable patient, with CS reserved for routine obstetric indications, or acute maternal decompensation . Regional anesthesia is not contraindicated ,however anesthesiology should be consulted prior to her planned delivery. Strict I&O with avoidance of intrapartum/ fluid overload. 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 (5) Tachycardia Current Visit: Yes Status: Acute (6) 33 weeks gestation of Current Visit: Yes Status: Acute Subjective - Subjective Date of service: 10/03/21 Principal diagnosis: PPROM, IUP @33.6 wks; Cardiomyopathy, tachycardia Patient reports: loss of fluid, movement normal, no new complaints, no vaginal bleeding, no contractions Objective - Vital Signs Vital Signs: Vital Signs - 12hr 10/03/21 10/03/21 10/03/21 04:03 06:03 08:00 Temperature 97.9 F 98.4 F 98.5 F Pulse Rate 82 84 Respiratory 18 18 14 Rate Blood Pressure 101/56 Blood Pressure 101/56 [Left] Blood Pressure 106/55 [Right] O2 Sat by Pulse 98 98 Oximetry O2 Sat by Pulse 99 Oximetry [ Bilateral] 10/03/21 10/03/21 10/03/21 08:12 08:13 09:58 Temperature Pulse Rate 87 86 86 Respiratory Rate Blood Pressure 106/55 Blood Pressure [Left] Blood Pressure [Right] O2 Sat by Pulse 98 82 L Oximetry O2 Sat by Pulse Oximetry [ Bilateral] 10/03/21 10/03/21 10/03/21 10:00 12:01 12:07 Temperature 97.8 F 98.7 F Pulse Rate 95 H 78 Respiratory 18 Rate Blood Pressure 131/88 Blood Pressure [Left] Blood Pressure [Right] O2 Sat by Pulse Oximetry O2 Sat by Pulse Oximetry [ Bilateral] - Exam Breasts: deferred Cardiovascular: Regular rate Lungs: Normal air movement Abdomen: Present: normal appearance, soft. Absent: distention, tenderness, guarding FHR: auscultation normal, category 1 FHR comments: NSTs reviewed and category 1 Uterine Contraction Monitor Mode: Palpation Uterine Contraction Pattern: Absent Uterine Tone Measurement Phase: Resting Extremities: normal - Labs Labs: Abnormal Labs 09/03/21 09/09/21 09/12/21 13:00 08:45 07:43 WBC 11.6 H RBC 3.52 L 3.58 L MCH MCHC RDW 12.7 L 13.0 L Seg Neutrophils % 82.2 H 77.1 H Seg Neutrophils # 7.9 H 8.9 H 09/14/21 09/26/21 13:16 14:27 WBC RBC 3.55 L MCH 33 H MCHC 35 H RDW 12.8 L Seg Neutrophils % 75.9 H Seg Neutrophils #
[2021-10-04 06:22] LABS: Hematocrit 33.8 % (30.3-42.9); Mean Corpuscular HGB Conc 33 % (30-34); Mean Corpuscular Volume 95 fl (79-97); Platelet Count 202 K/mm3 (140-440); Red Blood Count 3.57 M/mm3 (3.65-5.03); Red Cell Distribution Width 13.1 % (13.2-15.2)
--- NOTE | 2021-10-04 07:51 | Event Note ---
Date: 10/04/21 Pt sitting up eating breakfast. No complaints. Will allow her to finish breakfast and then start IOL process.
[2021-10-04] MEDS ORDERED: PROMETHAZINE 25 MG TAB PO PRN (08:10)
[2021-10-04] MEDS ORDERED: fentaNYL 100 MCG/2 ML INJ IV PRN (08:10)
[2021-10-04] MEDS ORDERED: LIDOCAINE (2%) 20 MG/1 ML VIAL 20 ML MDV INFILTRATI ONE (08:10)
[2021-10-04] MEDS ORDERED: NALOXONE 0.4 MG/1 ML INJ IV PRN (08:10)
[2021-10-04] MEDS ORDERED: BUTORPHANOL 2 MG/1 ML INJ IV PRN (08:10)
[2021-10-04] MEDS ORDERED: AMPICILLIN/NS 2 GM/100 ML 2 GM/100 ML BAG IV ONE (08:10)
[2021-10-04] MEDS ORDERED: MINERAL OIL 30 ML ORAL LIQD PO PRN (08:10)
[2021-10-04] MEDS ORDERED: ACETAMINOPHEN 325 MG TAB PO PRN (08:10)
[2021-10-04] MEDS ORDERED: TERBUTALINE 1 MG/1 ML INJ SUB-Q PRN (08:10)
[2021-10-04] MEDS ORDERED: ONDANSETRON 4 MG/2 ML INJ IV PRN (08:10)
--- NOTE | 2021-10-04 08:25 | Progress Note ---
Assessment and Plan A: 30 y.o. @ 34 wks, Mild cardiomyopathy, PPROM @ 29 wks. For IOL today. - Patient Problems (1) premature rupture of membranes (PPROM) with unknown onset of labor Current Visit: Yes Status: Acute Plan to address problem: Begin IOL today: Pitocin 2X2 this AM. Cervical exam: 0.5/50/-3, soft, posterior. Continue to monitor status through EFM. Continue to monitor for s/sx of infection. 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 - Initiate empiric treatment of hydralazine 25 mg twice daily and metoprolol succinate 25 mg daily after delivery. She was reminded of the need for f/u with cardiology , need for cardiac clearance prior to her next conception, avoidance of further pregnancies if her cardiomyopathy has not resolved. Strict I&O with avoidance of intrapartum/ fluid overload. Regional anesthesia is not contraindicated ,however anesthesiology should be consulted prior to her planned delivery. (3) GBS (group B Streptococcus carrier), +RV culture, currently Current Visit: Yes Status: Acute Plan to address problem: Antibiotics when in active labor. Subjective - Subjective Date of service: 10/04/21 Principal diagnosis: PPROM, IUP @ 34 wks; Cardiomyopathy, tachycardia, initiating IOL today Interval history: Explained IOL methods and what we will be starting off with today. Pitocin 2X2 and if no change this evening will use Cervidil. Pt agrees and verbalized understanding. Patient reports: loss of fluid, movement normal, no new complaints, no vaginal bleeding, no contractions Objective - Vital Signs Vital Signs: Vital Signs - 12hr 10/03/21 10/03/21 10/03/21 22:11 22:12 22:14 Temperature Pulse Rate 91 H Respiratory Rate Blood Pressure 109/64 Blood Pressure [Left] O2 Sat by Pulse 82 L 85 Oximetry 10/03/21 10/03/21 10/03/21 22:15 22:16 22:21 Temperature 98.6 F Pulse Rate 96 H 99 H 105 H Respiratory 18 Rate Blood Pressure Blood Pressure 109/64 [Left] O2 Sat by Pulse 98 98 96 Oximetry 10/03/21 10/03/21 10/03/21 22:26 22:31 22:36 Temperature Pulse Rate 96 H 95 H 101 H Respiratory Rate Blood Pressure Blood Pressure [Left] O2 Sat by Pulse 96 98 95 Oximetry 10/03/21 10/03/21 10/03/21 22:41 22:46 22:51 Temperature Pulse Rate 95 H 99 H 103 H Respiratory Rate Blood Pressure Blood Pressure [Left] O2 Sat by Pulse 97 98 98 Oximetry 10/04/21 08:21 Temperature Pulse Rate 42 L Respiratory Rate Blood Pressure Blood Pressure [Left] O2 Sat by Pulse 87 Oximetry - Exam Narrative Exam: Of note, patient is uncomfortable with exams but can tolerate with some reassuring and coaching. Breasts: deferred Cardiovascular: Regular rate Lungs: Normal air movement Abdomen: Present: normal appearance, soft Vulva: both: normal Uterus: Present: normal FHR: category 1 Uterine Contraction Monitor Mode: External Cervical Dilatation: 0.5 Cervical Effacement Percentage: 50 station: -3 Uterine Contraction Pattern: Absent Extremities: normal - Labs Labs: Abnormal Labs 09/03/21 09/09/21 09/12/21 13:00 08:45 07:43 WBC 11.6 H RBC 3.52 L 3.58 L MCH MCHC RDW 12.7 L 13.0 L Seg Neutrophils % 82.2 H 77.1 H Seg Neutrophils # 7.9 H 8.9 H 09/14/21 09/26/21 10/04/21 13:16 14:27 06:01 WBC RBC 3.55 L 3.57 L MCH 33 H MCHC 35 H RDW 12.8 L 13.1 L Seg Neutrophils % 75.9 H Seg Neutrophils # Laboratory Results - last 24 hr 10/04/21 10/04/21 06:01 06:01 WBC 6.2 RBC 3.57 L Hgb 11.0 Hct 33.8 MCV 95 MCH 31 MCHC 33 RDW 13.1 L Plt Count 202 Blood Type O POSITIVE
[2021-10-04] MEDS ORDERED: OXYTOCIN DRIP 30 UNITS/500 ML BAG IV SCH (09:00)
[2021-10-04] MEDS: LACTATED RINGERS 1,000 ML IV SCH (09:23)
[2021-10-04] MEDS: PRENATAL VIT27-FE FUMARATE-FOLIC ACID VIT TAB PO SCH (09:54)
[2021-10-04] MEDS: AMPICILLIN/NS 1 GM/50 ML 1 GM/50 ML BAG IV SCH (13:56)
--- NOTE | 2021-10-04 17:49 | Event Note ---
Date: 10/04/21 Pt feeling some contractions. Irregular contractions seen on monitor. Category 1 monitor tracing. Will stop Pitocin for now, allow patient to eat dinner and then insert Cervidil at 1930 pm. Patient agrees with this plan and verbalized understanding.
[2021-10-04] MEDS ORDERED: DINOPROSTONE 10 MG VAG SUPP VG ONE (19:00)
--- NOTE | 2021-10-04 20:29 | Progress Note ---
Assessment and Plan A: 30 y.o. @ 34 wks, IOL per [facility] recommendations. Cardiomyopathy, tachycardia, PPROM. - Patient Problems (1) premature rupture of membranes (PPROM) with unknown onset of labor Current Visit: Yes Status: Acute Plan to address problem: Continue with IOL. Cervidil placed. 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 (3) GBS (group B Streptococcus carrier), +RV culture, currently Current Visit: Yes Status: Acute Plan to address problem: Antibiotics while in labor. Subjective - Subjective Date of service: 10/04/21 Principal diagnosis: PPROM, IUP @ 34 wks; Cardiomyopathy, tachycardia, initiating IOL today Interval history: Pt doing well. Feeling some contractions. States "gush of fluid when I was in the bathroom earlier." Patient reports: loss of fluid, movement normal, no new complaints, no vaginal bleeding, no contractions Objective - Vital Signs Vital Signs: Vital Signs - 12hr 10/04/21 10/04/21 10/04/21 08:31 08:36 08:40 Temperature 99 F Pulse Rate 99 H 101 H 103 H Respiratory 17 Rate Blood Pressure O2 Sat by Pulse 97 97 97 Oximetry O2 Sat by Pulse Oximetry [ Bilateral] 10/04/21 10/04/21 10/04/21 08:41 08:44 08:49 Temperature Pulse Rate 104 H 105 H 96 H Respiratory Rate Blood Pressure O2 Sat by Pulse 97 97 99 Oximetry O2 Sat by Pulse Oximetry [ Bilateral] 10/04/21 10/04/21 10/04/21 08:54 09:01 09:03 Temperature Pulse Rate 96 H 61 Respiratory Rate Blood Pressure O2 Sat by Pulse 99 85 81 L Oximetry O2 Sat by Pulse Oximetry [ Bilateral] 10/04/21 10/04/21 10/04/21 09:06 09:11 09:16 Temperature Pulse Rate 105 H 104 H 106 H Respiratory Rate Blood Pressure O2 Sat by Pulse 98 98 98 Oximetry O2 Sat by Pulse Oximetry [ Bilateral] 10/04/21 10/04/21 10/04/21 09:21 09:26 09:31 Temperature Pulse Rate 100 H 105 H 106 H Respiratory Rate Blood Pressure O2 Sat by Pulse 99 97 98 Oximetry O2 Sat by Pulse Oximetry [ Bilateral] 10/04/21 10/04/21 10/04/21 09:36 09:41 09:46 Temperature Pulse Rate 100 H 99 H 123 H Respiratory Rate Blood Pressure 115/71 O2 Sat by Pulse 98 98 98 Oximetry O2 Sat by Pulse Oximetry [ Bilateral] 10/04/21 10/04/21 10/04/21 09:51 09:56 10:00 Temperature 98.5 F Pulse Rate 105 H 98 H 96 H Respiratory Rate Blood Pressure O2 Sat by Pulse 98 99 Oximetry O2 Sat by Pulse Oximetry [ Bilateral] 10/04/21 10/04/21 10/04/21 10:01 10:06 10:11 Temperature Pulse Rate 97 H 97 H 108 H Respiratory Rate Blood Pressure 117/68 O2 Sat by Pulse 99 98 97 Oximetry O2 Sat by Pulse Oximetry [ Bilateral] 10/04/21 10/04/21 10/04/21 10:16 10:21 10:26 Temperature Pulse Rate 106 H 104 H 98 H Respiratory Rate Blood Pressure O2 Sat by Pulse 98 98 98 Oximetry O2 Sat by Pulse Oximetry [ Bilateral] 10/04/21 10/04/21 10/04/21 10:31 10:36 10:41 Temperature Pulse Rate 102 H 98 H 104 H Respiratory Rate Blood Pressure 116/63 O2 Sat by Pulse 97 97 97 Oximetry O2 Sat by Pulse Oximetry [ Bilateral] 10/04/21 10/04/21 10/04/21 10:46 10:51 10:56 Temperature Pulse Rate 88 98 H 92 H Respiratory Rate Blood Pressure O2 Sat by Pulse 96 97 99 Oximetry O2 Sat by Pulse Oximetry [ Bilateral] 10/04/21 10/04/21 10/04/21 11:01 11:06 11:11 Temperature Pulse Rate 99 H 124 H 84 Respiratory Rate Blood Pressure 118/68 O2 Sat by Pulse 97 96 99 Oximetry O2 Sat by Pulse Oximetry [ Bilateral] 10/04/21 10/04/21 10/04/21 11:16 11:21 11:27 Temperature Pulse Rate 99 H 95 H 64 Respiratory Rate Blood Pressure O2 Sat by Pulse 97 97 96 Oximetry O2 Sat by Pulse Oximetry [ Bilateral] 10/04/21 10/04/21 10/04/21 11:32 11:37 11:42 Temperature Pulse Rate 93 H 99 H 94 H Respiratory Rate Blood Pressure 108/62 O2 Sat by Pulse 98 96 97 Oximetry O2 Sat by Pulse Oximetry [ Bilateral] 10/04/21 10/04/21 10/04/21 11:47 11:52 11:57 Temperature Pulse Rate 94 H 87 92 H Respiratory Rate Blood Pressure O2 Sat by Pulse 97 99 98 Oximetry O2 Sat by Pulse Oximetry [ Bilateral] 10/04/21 10/04/21 10/04/21 12:02 12:07 12:12 Temperature Pulse Rate 99 H 95 H 107 H Respiratory Rate Blood Pressure O2 Sat by Pulse 98 98 98 Oximetry O2 Sat by Pulse Oximetry [ Bilateral] 10/04/21 10/04/21 10/04/21 12:17 12:22 12:27 Temperature Pulse Rate 106 H 93 H 88 Respiratory Rate Blood Pressure O2 Sat by Pulse 99 98 97 Oximetry O2 Sat by Pulse Oximetry [ Bilateral] 10/04/21 10/04/21 10/04/21 12:32 12:37 12:42 Temperature Pulse Rate 98 H 91 H 96 H Respiratory Rate Blood Pressure 137/70 O2 Sat by Pulse 96 98 97 Oximetry O2 Sat by Pulse Oximetry [ Bilateral] 10/04/21 10/04/21 10/04/21 12:47 12:52 12:57 Temperature Pulse Rate 92 H 94 H 100 H Respiratory Rate Blood Pressure O2 Sat by Pulse 99 98 100 Oximetry O2 Sat by Pulse Oximetry [ Bilateral] 10/04/21 10/04/21 10/04/21 12:58 13:21 13:26 Temperature Pulse Rate Respiratory Rate Blood Pressure O2 Sat by Pulse 83 L 87 83 L Oximetry O2 Sat by Pulse Oximetry [ Bilateral] 10/04/21 10/04/21 10/04/21 13:32 13:38 13:41 Temperature Pulse Rate 125 H Respiratory Rate Blood Pressure O2 Sat by Pulse 84 84 84 Oximetry O2 Sat by Pulse Oximetry [ Bilateral] 10/04/21 10/04/21 10/04/21 13:44 13:49 13:53 Temperature Pulse Rate 108 H Respiratory Rate Blood Pressure O2 Sat by Pulse 83 L 87 85 Oximetry O2 Sat by Pulse Oximetry [ Bilateral] 10/04/21 10/04/21 10/04/21 13:56 13:59 14:02 Temperature 98.9 F Pulse Rate 97 H 96 H Respiratory Rate Blood Pressure O2 Sat by Pulse 86 98 Oximetry O2 Sat by Pulse Oximetry [ Bilateral] 10/04/21 10/04/21 10/04/21 14:04 14:09 14:14 Temperature Pulse Rate 95 H 90 99 H Respiratory Rate Blood Pressure O2 Sat by Pulse 99 99 99 Oximetry O2 Sat by Pulse Oximetry [ Bilateral] 10/04/21 10/04/21 10/04/21 14:19 14:24 14:29 Temperature Pulse Rate 99 H 89 94 H Respiratory Rate Blood Pressure O2 Sat by Pulse 100 99 100 Oximetry O2 Sat by Pulse Oximetry [ Bilateral] 10/04/21 10/04/21 10/04/21 14:34 14:36 14:39 Temperature Pulse Rate 98 H 93 H 95 H Respiratory Rate Blood Pressure 125/61 O2 Sat by Pulse 100 100 Oximetry O2 Sat by Pulse Oximetry [ Bilateral] 10/04/21 10/04/21 10/04/21 14:44 14:49 14:54 Temperature Pulse Rate 85 89 88 Respiratory Rate Blood Pressure O2 Sat by Pulse 98 97 98 Oximetry O2 Sat by Pulse Oximetry [ Bilateral] 10/04/21 10/04/21 10/04/21 14:59 15:04 15:06 Temperature Pulse Rate 83 84 106 H Respiratory Rate Blood Pressure 118/65 O2 Sat by Pulse 97 96 Oximetry O2 Sat by Pulse Oximetry [ Bilateral] 10/04/21 10/04/21 10/04/21 15:17 15:22 15:27 Temperature Pulse Rate 106 H 103 H 88 Respiratory Rate Blood Pressure O2 Sat by Pulse 99 98 98 Oximetry O2 Sat by Pulse Oximetry [ Bilateral] 10/04/21 10/04/21 10/04/21 15:32 15:37 15:42 Temperature Pulse Rate 84 75 94 H Respiratory Rate Blood Pressure O2 Sat by Pulse 97 98 98 Oximetry O2 Sat by Pulse Oximetry [ Bilateral] 10/04/21 10/04/21 10/04/21 15:47 15:52 15:57 Temperature Pulse Rate 84 92 H 87 Respiratory Rate Blood Pressure O2 Sat by Pulse 98 98 98 Oximetry O2 Sat by Pulse Oximetry [ Bilateral] 10/04/21 10/04/21 10/04/21 16:02 16:07 16:12 Temperature Pulse Rate 85 83 77 Respiratory Rate Blood Pressure O2 Sat by Pulse 98 98 97 Oximetry O2 Sat by Pulse Oximetry [ Bilateral] 10/04/21 10/04/21 10/04/21 16:17 16:19 16:22 Temperature 98 F Pulse Rate 46 L Respiratory Rate Blood Pressure O2 Sat by Pulse 85 85 Oximetry O2 Sat by Pulse Oximetry [ Bilateral] 10/04/21 10/04/21 10/04/21 16:23 16:28 16:33 Temperature Pulse Rate 80 99 H 85 Respiratory Rate Blood Pressure O2 Sat by Pulse 86 98 97 Oximetry O2 Sat by Pulse Oximetry [ Bilateral] 10/04/21 10/04/21 10/04/21 16:36 16:38 16:43 Temperature Pulse Rate 87 80 80 Respiratory Rate Blood Pressure 102/55 O2 Sat by Pulse 98 98 Oximetry O2 Sat by Pulse Oximetry [ Bilateral] 10/04/21 10/04/21 10/04/21 16:48 16:53 16:58 Temperature Pulse Rate 84 89 89 Respiratory Rate Blood Pressure O2 Sat by Pulse 98 98 98 Oximetry O2 Sat by Pulse Oximetry [ Bilateral] 10/04/21 10/04/21 10/04/21 17:03 17:07 17:08 Temperature Pulse Rate 80 88 76 Respiratory Rate Blood Pressure 122/74 O2 Sat by Pulse 98 97 Oximetry O2 Sat by Pulse Oximetry [ Bilateral] 10/04/21 10/04/21 10/04/21 17:13 17:18 17:23 Temperature Pulse Rate 84 80 96 H Respiratory Rate Blood Pressure O2 Sat by Pulse 97 97 97 Oximetry O2 Sat by Pulse Oximetry [ Bilateral] 10/04/21 10/04/21 10/04/21 17:28 18:00 19:19 Temperature 98.9 F Pulse Rate 82 112 H Respiratory Rate Blood Pressure O2 Sat by Pulse 96 97 Oximetry O2 Sat by Pulse Oximetry [ Bilateral] 10/04/21 10/04/21 10/04/21 19:20 19:21 19:24 Temperature 98.5 F Pulse Rate 101 H 104 H Respiratory Rate Blood Pressure 120/66 O2 Sat by Pulse 98 Oximetry O2 Sat by Pulse 97 Oximetry [ Bilateral] 10/04/21 10/04/21 10/04/21 19:29 19:34 19:39 Temperature Pulse Rate 101 H 99 H 96 H Respiratory Rate Blood Pressure O2 Sat by Pulse 97 98 98 Oximetry O2 Sat by Pulse Oximetry [ Bilateral] 10/04/21 10/04/21 10/04/21 19:44 19:49 19:54 Temperature Pulse Rate 100 H 93 H 98 H Respiratory Rate Blood Pressure O2 Sat by Pulse 98 97 96 Oximetry O2 Sat by Pulse Oximetry [ Bilateral] 10/04/21 10/04/21 10/04/21 19:59 20:04 20:09 Temperature Pulse Rate 101 H 102 H 105 H Respiratory Rate Blood Pressure O2 Sat by Pulse 99 98 98 Oximetry O2 Sat by Pulse Oximetry [ Bilateral] 10/04/21 20:22 Temperature Pulse Rate 92 H Respiratory Rate Blood Pressure O2 Sat by Pulse 99 Oximetry O2 Sat by Pulse Oximetry [ Bilateral] - Exam Breasts: deferred Cardiovascular: Regular rate Lungs: Normal air movement Abdomen: Present: normal appearance, soft Vulva: both: normal Uterus: Present: normal FHR: category 1 Uterine Contraction Monitor Mode: External Cervical Dilatation: 0.5 Cervical Effacement Percentage: 50 station: -3 Uterine Contraction Pattern: Irregular Uterine Tone Measurement Phase: Resting Uterine Contraction Intensity: Mild Extremities: normal - Labs Labs: Abnormal Labs 09/03/21 09/09/21 09/12/21 13:00 08:45 07:43 WBC 11.6 H RBC 3.52 L 3.58 L MCH MCHC RDW 12.7 L 13.0 L Seg Neutrophils % 82.2 H 77.1 H Seg Neutrophils # 7.9 H 8.9 H 09/14/21 09/26/21 10/04/21 13:16 14:27 06:01 WBC RBC 3.55 L 3.57 L MCH 33 H MCHC 35 H RDW 12.8 L 13.1 L Seg Neutrophils % 75.9 H Seg Neutrophils # Laboratory Results - last 24 hr 10/04/21 10/04/21 06:01 06:01 WBC 6.2 RBC 3.57 L Hgb 11.0 Hct 33.8 MCV 95 MCH 31 MCHC 33 RDW 13.1 L Plt Count 202 Blood Type O POSITIVE Antibody Screen Negative
--- NOTE | 2021-10-05 08:58 | Progress Note ---
Assessment and Plan A: 30 y.o. @ 34.1 wks, IOL. PPROM, cardiomyopathy. - Patient Problems (1) premature rupture of membranes (PPROM) with unknown onset of labor Current Visit: Yes Status: Acute Plan to address problem: Continue to limit vaginal exams. Continue with IOL with Pitocin per protocol. Continue to monitor for s/sx of chorioamnionitis. Continue to monitor status through EFM. 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 Subjective - Subjective Date of service: 10/05/21 Principal diagnosis: PPROM, IUP @ 34.1 wks; Cardiomyopathy, tachycardia, IOL Patient reports: loss of fluid, movement normal, no new complaints, no vaginal bleeding, no contractions Objective - Vital Signs Vital Signs: Vital Signs - 12hr 10/04/21 10/04/21 10/04/21 19:49 19:54 19:59 Temperature Pulse Rate 93 H 98 H 101 H Respiratory Rate Blood Pressure Blood Pressure [Left] O2 Sat by Pulse 97 96 99 Oximetry O2 Sat by Pulse Oximetry [ Bilateral] 10/04/21 10/04/21 10/04/21 20:04 20:09 20:22 Temperature Pulse Rate 102 H 105 H 92 H Respiratory Rate Blood Pressure Blood Pressure [Left] O2 Sat by Pulse 98 98 99 Oximetry O2 Sat by Pulse Oximetry [ Bilateral] 10/04/21 10/04/21 10/04/21 20:27 20:32 20:37 Temperature Pulse Rate 106 H 101 H 99 H Respiratory Rate Blood Pressure Blood Pressure [Left] O2 Sat by Pulse 98 97 97 Oximetry O2 Sat by Pulse Oximetry [ Bilateral] 10/04/21 10/04/21 10/04/21 20:42 20:47 20:52 Temperature Pulse Rate 98 H 103 H 95 H Respiratory Rate Blood Pressure Blood Pressure [Left] O2 Sat by Pulse 97 99 98 Oximetry O2 Sat by Pulse Oximetry [ Bilateral] 10/04/21 10/04/21 10/04/21 20:57 21:02 21:07 Temperature Pulse Rate 103 H 100 H 96 H Respiratory Rate Blood Pressure Blood Pressure [Left] O2 Sat by Pulse 97 98 99 Oximetry O2 Sat by Pulse Oximetry [ Bilateral] 10/04/21 10/04/21 10/04/21 21:12 21:17 21:22 Temperature Pulse Rate 106 H 105 H 96 H Respiratory Rate Blood Pressure Blood Pressure [Left] O2 Sat by Pulse 98 98 97 Oximetry O2 Sat by Pulse Oximetry [ Bilateral] 10/04/21 10/04/21 10/04/21 21:27 21:32 21:37 Temperature Pulse Rate 100 H 103 H 107 H Respiratory Rate Blood Pressure Blood Pressure [Left] O2 Sat by Pulse 99 98 97 Oximetry O2 Sat by Pulse Oximetry [ Bilateral] 10/04/21 10/04/21 10/04/21 21:42 21:47 21:52 Temperature Pulse Rate 101 H 96 H 92 H Respiratory Rate Blood Pressure Blood Pressure [Left] O2 Sat by Pulse 98 97 99 Oximetry O2 Sat by Pulse Oximetry [ Bilateral] 10/04/21 10/04/21 10/04/21 21:57 22:02 22:07 Temperature Pulse Rate 97 H 95 H 94 H Respiratory Rate Blood Pressure Blood Pressure [Left] O2 Sat by Pulse 98 97 97 Oximetry O2 Sat by Pulse Oximetry [ Bilateral] 10/04/21 10/04/21 10/05/21 22:17 23:28 01:00 Temperature 98.9 F 98.8 F Pulse Rate 96 H Respiratory Rate Blood Pressure 106/54 Blood Pressure [Left] O2 Sat by Pulse Oximetry O2 Sat by Pulse Oximetry [ Bilateral] 10/05/21 10/05/21 10/05/21 01:35 01:40 01:45 Temperature Pulse Rate 94 H 83 85 Respiratory Rate Blood Pressure Blood Pressure [Left] O2 Sat by Pulse 91 99 98 Oximetry O2 Sat by Pulse Oximetry [ Bilateral] 10/05/21 10/05/21 10/05/21 01:50 01:55 03:00 Temperature Pulse Rate 86 85 90 Respiratory Rate Blood Pressure Blood Pressure [Left] O2 Sat by Pulse 99 99 100 Oximetry O2 Sat by Pulse Oximetry [ Bilateral] 10/05/21 10/05/21 10/05/21 03:05 03:10 03:15 Temperature Pulse Rate 83 93 H 83 Respiratory Rate Blood Pressure Blood Pressure [Left] O2 Sat by Pulse 99 98 99 Oximetry O2 Sat by Pulse Oximetry [ Bilateral] 10/05/21 10/05/21 10/05/21 03:20 03:26 03:31 Temperature Pulse Rate 88 85 85 Respiratory Rate Blood Pressure Blood Pressure [Left] O2 Sat by Pulse 98 98 98 Oximetry O2 Sat by Pulse Oximetry [ Bilateral] 10/05/21 10/05/21 10/05/21 03:35 03:40 03:45 Temperature Pulse Rate 85 89 81 Respiratory Rate Blood Pressure Blood Pressure [Left] O2 Sat by Pulse 98 97 98 Oximetry O2 Sat by Pulse Oximetry [ Bilateral] 10/05/21 10/05/21 10/05/21 03:50 03:56 04:01 Temperature Pulse Rate 83 84 83 Respiratory Rate Blood Pressure Blood Pressure [Left] O2 Sat by Pulse 97 97 97 Oximetry O2 Sat by Pulse Oximetry [ Bilateral] 10/05/21 10/05/21 10/05/21 04:05 04:06 04:10 Temperature Pulse Rate 80 96 H 77 Respiratory Rate Blood Pressure Blood Pressure [Left] O2 Sat by Pulse 97 92 96 Oximetry O2 Sat by Pulse Oximetry [ Bilateral] 10/05/21 10/05/21 10/05/21 04:16 04:21 04:26 Temperature Pulse Rate 86 81 94 H Respiratory Rate Blood Pressure Blood Pressure [Left] O2 Sat by Pulse 98 97 98 Oximetry O2 Sat by Pulse Oximetry [ Bilateral] 10/05/21 10/05/21 10/05/21 04:31 04:35 05:00 Temperature 98.8 F Pulse Rate 82 79 Respiratory Rate Blood Pressure Blood Pressure [Left] O2 Sat by Pulse 98 99 Oximetry O2 Sat by Pulse Oximetry [ Bilateral] 10/05/21 10/05/21 10/05/21 06:03 06:08 06:13 Temperature Pulse Rate 78 76 88 Respiratory Rate Blood Pressure 108/57 Blood Pressure [Left] O2 Sat by Pulse 98 98 97 Oximetry O2 Sat by Pulse Oximetry [ Bilateral] 10/05/21 10/05/21 10/05/21 06:18 06:23 06:28 Temperature Pulse Rate 75 72 84 Respiratory Rate Blood Pressure Blood Pressure [Left] O2 Sat by Pulse 97 98 98 Oximetry O2 Sat by Pulse Oximetry [ Bilateral] 10/05/21 10/05/21 10/05/21 06:33 06:38 06:43 Temperature Pulse Rate 89 79 80 Respiratory Rate Blood Pressure Blood Pressure [Left] O2 Sat by Pulse 98 97 96 Oximetry O2 Sat by Pulse Oximetry [ Bilateral] 10/05/21 10/05/21 10/05/21 06:48 06:53 06:58 Temperature Pulse Rate 71 75 79 Respiratory Rate Blood Pressure Blood Pressure [Left] O2 Sat by Pulse 99 98 97 Oximetry O2 Sat by Pulse Oximetry [ Bilateral] 10/05/21 10/05/21 10/05/21 07:03 07:15 07:17 Temperature Pulse Rate 80 189 H 168 H Respiratory Rate Blood Pressure Blood Pressure [Left] O2 Sat by Pulse 99 84 89 Oximetry O2 Sat by Pulse Oximetry [ Bilateral] 10/05/21 10/05/21 10/05/21 07:22 07:27 07:32 Temperature Pulse Rate 72 90 79 Respiratory Rate Blood Pressure Blood Pressure [Left] O2 Sat by Pulse 98 98 100 Oximetry O2 Sat by Pulse Oximetry [ Bilateral] 10/05/21 10/05/21 10/05/21 07:37 07:38 07:42 Temperature Pulse Rate 85 90 95 H Respiratory Rate Blood Pressure Blood Pressure [Left] O2 Sat by Pulse 99 94 98 Oximetry O2 Sat by Pulse Oximetry [ Bilateral] 10/05/21 10/05/21 10/05/21 07:47 07:52 07:53 Temperature Pulse Rate 91 H 104 H 102 H Respiratory Rate Blood Pressure Blood Pressure [Left] O2 Sat by Pulse 100 89 99 Oximetry O2 Sat by Pulse Oximetry [ Bilateral] 10/05/21 10/05/21 10/05/21 07:58 07:59 08:08 Temperature Pulse Rate 107 H 115 H 82 Respiratory Rate Blood Pressure 124/65 Blood Pressure [Left] O2 Sat by Pulse 99 87 97 Oximetry O2 Sat by Pulse Oximetry [ Bilateral] 10/05/21 10/05/21 10/05/21 08:10 08:11 08:13 Temperature 98.5 F Pulse Rate 91 H 127 H Respiratory 18 Rate Blood Pressure Blood Pressure 124/65 [Left] O2 Sat by Pulse 99 100 Oximetry O2 Sat by Pulse 98 Oximetry [ Bilateral] 10/05/21 10/05/21 10/05/21 08:18 08:23 08:28 Temperature Pulse Rate 91 H 98 H 92 H Respiratory Rate Blood Pressure Blood Pressure [Left] O2 Sat by Pulse 98 98 98 Oximetry O2 Sat by Pulse Oximetry [ Bilateral] 10/05/21 10/05/21 08:37 08:43 Temperature Pulse Rate 111 H 105 H Respiratory Rate Blood Pressure Blood Pressure [Left] O2 Sat by Pulse 95 99 Oximetry O2 Sat by Pulse Oximetry [ Bilateral] - Exam Narrative Exam: Cervidil removed without difficulty. Breasts: deferred Cardiovascular: Regular rate Lungs: Normal air movement Abdomen: Present: normal appearance, soft Vulva: both: normal Uterus: Present: normal FHR: category 1 Uterine Contraction Monitor Mode: External Cervical Dilatation: 1.5 Cervical Effacement Percentage: 50 station: -3 Uterine Contraction Pattern: Regular Uterine Tone Measurement Phase: Resting Uterine Contraction Intensity: Mild Extremities: normal - Labs Labs: Abnormal Labs 09/03/21 09/09/21 09/12/21 13:00 08:45 07:43 WBC 11.6 H RBC 3.52 L 3.58 L MCH MCHC RDW 12.7 L 13.0 L Seg Neutrophils % 82.2 H 77.1 H Seg Neutrophils # 7.9 H 8.9 H 09/14/21 09/26/21 10/04/21 13:16 14:27 06:01 WBC RBC 3.55 L 3.57 L MCH 33 H MCHC 35 H RDW 12.8 L 13.1 L Seg Neutrophils % 75.9 H Seg Neutrophils # Laboratory Results - last 24 hr 10/04/21 06:01 Blood Type O POSITIVE Antibody Screen Negative
[2021-10-05] MEDS: AMPICILLIN/NS 1 GM/50 ML 1 GM/50 ML BAG IV SCH ×4 (10:09→23:18)
[2021-10-05] MEDS: PRENATAL VIT27-FE FUMARATE-FOLIC ACID VIT TAB PO SCH (10:09)
[2021-10-05] MEDS: LACTATED RINGERS 1,000 ML IV SCH ×3 (12:50→22:03)
--- NOTE | 2021-10-05 16:49 | Progress Note ---
Assessment and Plan A: 30 y.o. @ 34.1 weeks, IOL. PPROM, cardiomyopathy. - Patient Problems (1) premature rupture of membranes (PPROM) with unknown onset of labor Current Visit: Yes Status: Acute Plan to address problem: Continue with IOL. Continue with Pitocin per protocol. Epidural for pain management. Anticipate . 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 Subjective - Subjective Date of service: 10/05/21 Principal diagnosis: PPROM, IUP @ 34.1 wks; Cardiomyopathy, tachycardia, IOL Interval history: Pt called out requesting pain medication. States that it came all of the sudden. Patient reports: loss of fluid, movement normal, no new complaints, no vaginal bleeding, no contractions Objective - Vital Signs Vital Signs: Vital Signs - 12hr 10/05/21 10/05/21 10/05/21 05:00 06:03 06:08 Temperature 98.8 F Pulse Rate 78 76 Respiratory Rate Blood Pressure 108/57 Blood Pressure [Left] O2 Sat by Pulse 98 98 Oximetry O2 Sat by Pulse Oximetry [ Bilateral] 10/05/21 10/05/21 10/05/21 06:13 06:18 06:23 Temperature Pulse Rate 88 75 72 Respiratory Rate Blood Pressure Blood Pressure [Left] O2 Sat by Pulse 97 97 98 Oximetry O2 Sat by Pulse Oximetry [ Bilateral] 10/05/21 10/05/21 10/05/21 06:28 06:33 06:38 Temperature Pulse Rate 84 89 79 Respiratory Rate Blood Pressure Blood Pressure [Left] O2 Sat by Pulse 98 98 97 Oximetry O2 Sat by Pulse Oximetry [ Bilateral] 10/05/21 10/05/21 10/05/21 06:43 06:48 06:53 Temperature Pulse Rate 80 71 75 Respiratory Rate Blood Pressure Blood Pressure [Left] O2 Sat by Pulse 96 99 98 Oximetry O2 Sat by Pulse Oximetry [ Bilateral] 10/05/21 10/05/21 10/05/21 06:58 07:03 07:15 Temperature Pulse Rate 79 80 189 H Respiratory Rate Blood Pressure Blood Pressure [Left] O2 Sat by Pulse 97 99 84 Oximetry O2 Sat by Pulse Oximetry [ Bilateral] 10/05/21 10/05/21 10/05/21 07:17 07:22 07:27 Temperature Pulse Rate 168 H 72 90 Respiratory Rate Blood Pressure Blood Pressure [Left] O2 Sat by Pulse 89 98 98 Oximetry O2 Sat by Pulse Oximetry [ Bilateral] 10/05/21 10/05/21 10/05/21 07:32 07:37 07:38 Temperature Pulse Rate 79 85 90 Respiratory Rate Blood Pressure Blood Pressure [Left] O2 Sat by Pulse 100 99 94 Oximetry O2 Sat by Pulse Oximetry [ Bilateral] 10/05/21 10/05/21 10/05/21 07:42 07:47 07:52 Temperature Pulse Rate 95 H 91 H 104 H Respiratory Rate Blood Pressure Blood Pressure [Left] O2 Sat by Pulse 98 100 89 Oximetry O2 Sat by Pulse Oximetry [ Bilateral] 10/05/21 10/05/21 10/05/21 07:53 07:58 07:59 Temperature Pulse Rate 102 H 107 H 115 H Respiratory Rate Blood Pressure Blood Pressure [Left] O2 Sat by Pulse 99 99 87 Oximetry O2 Sat by Pulse Oximetry [ Bilateral] 10/05/21 10/05/21 10/05/21 08:08 08:10 08:11 Temperature 98.5 F Pulse Rate 82 91 H Respiratory 18 Rate Blood Pressure 124/65 Blood Pressure 124/65 [Left] O2 Sat by Pulse 97 99 Oximetry O2 Sat by Pulse 98 Oximetry [ Bilateral] 10/05/21 10/05/21 10/05/21 08:13 08:18 08:23 Temperature Pulse Rate 127 H 91 H 98 H Respiratory Rate Blood Pressure Blood Pressure [Left] O2 Sat by Pulse 100 98 98 Oximetry O2 Sat by Pulse Oximetry [ Bilateral] 10/05/21 10/05/21 10/05/21 08:28 08:37 08:43 Temperature Pulse Rate 92 H 111 H 105 H Respiratory Rate Blood Pressure Blood Pressure [Left] O2 Sat by Pulse 98 95 99 Oximetry O2 Sat by Pulse Oximetry [ Bilateral] 10/05/21 10/05/21 10/05/21 08:48 08:53 08:58 Temperature Pulse Rate 99 H 104 H 102 H Respiratory Rate Blood Pressure Blood Pressure [Left] O2 Sat by Pulse 98 98 98 Oximetry O2 Sat by Pulse Oximetry [ Bilateral] 10/05/21 10/05/21 10/05/21 09:03 09:08 09:13 Temperature Pulse Rate 91 H 95 H 110 H Respiratory Rate Blood Pressure Blood Pressure [Left] O2 Sat by Pulse 99 96 99 Oximetry O2 Sat by Pulse Oximetry [ Bilateral] 10/05/21 10/05/21 10/05/21 09:18 09:23 09:28 Temperature Pulse Rate 105 H 94 H 96 H Respiratory Rate Blood Pressure Blood Pressure [Left] O2 Sat by Pulse 99 98 98 Oximetry O2 Sat by Pulse Oximetry [ Bilateral] 10/05/21 10/05/21 10/05/21 09:33 09:38 09:43 Temperature Pulse Rate 94 H 103 H 106 H Respiratory Rate Blood Pressure Blood Pressure [Left] O2 Sat by Pulse 99 97 99 Oximetry O2 Sat by Pulse Oximetry [ Bilateral] 10/05/21 10/05/21 10/05/21 09:47 09:48 10:01 Temperature Pulse Rate 92 H 99 H Respiratory Rate Blood Pressure Blood Pressure [Left] O2 Sat by Pulse 94 95 94 Oximetry O2 Sat by Pulse Oximetry [ Bilateral] 10/05/21 10/05/21 10/05/21 10:02 10:07 10:12 Temperature Pulse Rate 101 H 106 H Respiratory Rate Blood Pressure Blood Pressure [Left] O2 Sat by Pulse 94 98 96 Oximetry O2 Sat by Pulse Oximetry [ Bilateral] 10/05/21 10/05/21 10/05/21 10:17 10:22 10:27 Temperature Pulse Rate 87 99 H 109 H Respiratory Rate Blood Pressure Blood Pressure [Left] O2 Sat by Pulse 99 97 100 Oximetry O2 Sat by Pulse Oximetry [ Bilateral] 10/05/21 10/05/21 10/05/21 10:32 10:37 10:42 Temperature Pulse Rate 103 H 99 H 98 H Respiratory Rate Blood Pressure Blood Pressure [Left] O2 Sat by Pulse 98 98 98 Oximetry O2 Sat by Pulse Oximetry [ Bilateral] 10/05/21 10/05/21 10/05/21 10:47 10:52 10:57 Temperature Pulse Rate 118 H 97 H 103 H Respiratory Rate Blood Pressure Blood Pressure [Left] O2 Sat by Pulse 98 98 98 Oximetry O2 Sat by Pulse Oximetry [ Bilateral] 10/05/21 10/05/21 10/05/21 11:02 11:07 11:12 Temperature Pulse Rate 95 H 91 H 98 H Respiratory Rate Blood Pressure Blood Pressure [Left] O2 Sat by Pulse 97 97 99 Oximetry O2 Sat by Pulse Oximetry [ Bilateral] 10/05/21 10/05/21 10/05/21 11:17 11:22 11:27 Temperature Pulse Rate 87 83 88 Respiratory Rate Blood Pressure Blood Pressure [Left] O2 Sat by Pulse 94 96 96 Oximetry O2 Sat by Pulse Oximetry [ Bilateral] 10/05/21 10/05/21 10/05/21 11:29 11:32 11:36 Temperature Pulse Rate 73 94 H 91 H Respiratory Rate Blood Pressure Blood Pressure [Left] O2 Sat by Pulse 94 99 88 Oximetry O2 Sat by Pulse Oximetry [ Bilateral] 10/05/21 10/05/21 10/05/21 11:37 11:42 11:47 Temperature Pulse Rate 120 H 100 H 101 H Respiratory Rate Blood Pressure Blood Pressure [Left] O2 Sat by Pulse 97 98 98 Oximetry O2 Sat by Pulse Oximetry [ Bilateral] 10/05/21 10/05/21 10/05/21 11:52 11:57 12:02 Temperature Pulse Rate 98 H 108 H 91 H Respiratory Rate Blood Pressure Blood Pressure [Left] O2 Sat by Pulse 99 99 98 Oximetry O2 Sat by Pulse Oximetry [ Bilateral] 10/05/21 10/05/21 10/05/21 12:07 12:12 12:17 Temperature Pulse Rate 89 104 H 91 H Respiratory Rate Blood Pressure Blood Pressure [Left] O2 Sat by Pulse 98 99 98 Oximetry O2 Sat by Pulse Oximetry [ Bilateral] 10/05/21 10/05/21 10/05/21 12:22 12:27 12:32 Temperature Pulse Rate 78 85 102 H Respiratory Rate Blood Pressure Blood Pressure [Left] O2 Sat by Pulse 98 98 98 Oximetry O2 Sat by Pulse Oximetry [ Bilateral] 10/05/21 10/05/21 10/05/21 12:37 12:42 12:47 Temperature Pulse Rate 95 H 74 96 H Respiratory Rate Blood Pressure Blood Pressure [Left] O2 Sat by Pulse 97 98 98 Oximetry O2 Sat by Pulse Oximetry [ Bilateral] 10/05/21 10/05/21 10/05/21 12:52 12:55 12:57 Temperature Pulse Rate 90 91 H 91 H Respiratory Rate Blood Pressure Blood Pressure [Left] O2 Sat by Pulse 97 93 97 Oximetry O2 Sat by Pulse Oximetry [ Bilateral] 10/05/21 10/05/21 10/05/21 13:02 13:07 13:12 Temperature Pulse Rate 73 104 H 84 Respiratory Rate Blood Pressure Blood Pressure [Left] O2 Sat by Pulse 96 97 96 Oximetry O2 Sat by Pulse Oximetry [ Bilateral] 10/05/21 10/05/21 10/05/21 13:17 13:22 13:27 Temperature Pulse Rate 76 82 107 H Respiratory Rate Blood Pressure Blood Pressure [Left] O2 Sat by Pulse 96 96 96 Oximetry O2 Sat by Pulse Oximetry [ Bilateral] 10/05/21 10/05/21 10/05/21 13:29 13:32 13:37 Temperature Pulse Rate 120 H 115 H 108 H Respiratory Rate Blood Pressure Blood Pressure [Left] O2 Sat by Pulse 94 100 97 Oximetry O2 Sat by Pulse Oximetry [ Bilateral] 10/05/21 10/05/21 10/05/21 13:42 13:47 13:52 Temperature Pulse Rate 78 80 84 Respiratory Rate Blood Pressure Blood Pressure [Left] O2 Sat by Pulse 97 96 96 Oximetry O2 Sat by Pulse Oximetry [ Bilateral] 10/05/21 10/05/21 10/05/21 13:57 14:02 14:07 Temperature Pulse Rate 86 86 97 H Respiratory Rate Blood Pressure Blood Pressure [Left] O2 Sat by Pulse 96 97 96 Oximetry O2 Sat by Pulse Oximetry [ Bilateral] 10/05/21 10/05/21 10/05/21 14:12 14:17 14:22 Temperature Pulse Rate 91 H 86 101 H Respiratory Rate Blood Pressure Blood Pressure [Left] O2 Sat by Pulse 97 97 99 Oximetry O2 Sat by Pulse Oximetry [ Bilateral] 10/05/21 10/05/21 10/05/21 14:27 14:32 14:37 Temperature Pulse Rate 89 82 97 H Respiratory Rate Blood Pressure Blood Pressure [Left] O2 Sat by Pulse 96 97 97 Oximetry O2 Sat by Pulse Oximetry [ Bilateral] 10/05/21 10/05/21 10/05/21 14:42 14:47 14:52 Temperature Pulse Rate 81 82 75 Respiratory Rate Blood Pressure Blood Pressure [Left] O2 Sat by Pulse 99 99 98 Oximetry O2 Sat by Pulse Oximetry [ Bilateral] 10/05/21 10/05/21 10/05/21 14:57 15:02 15:07 Temperature Pulse Rate 86 88 84 Respiratory Rate Blood Pressure Blood Pressure [Left] O2 Sat by Pulse 97 97 97 Oximetry O2 Sat by Pulse Oximetry [ Bilateral] 10/05/21 10/05/21 10/05/21 15:12 15:17 15:22 Temperature Pulse Rate 87 84 79 Respiratory Rate Blood Pressure Blood Pressure [Left] O2 Sat by Pulse 97 100 100 Oximetry O2 Sat by Pulse Oximetry [ Bilateral] 10/05/21 10/05/21 10/05/21 15:54 15:59 16:04 Temperature Pulse Rate 79 77 81 Respiratory Rate Blood Pressure Blood Pressure [Left] O2 Sat by Pulse 99 99 97 Oximetry O2 Sat by Pulse Oximetry [ Bilateral] 10/05/21 10/05/21 10/05/21 16:09 16:14 16:19 Temperature Pulse Rate 79 76 89 Respiratory Rate Blood Pressure Blood Pressure [Left] O2 Sat by Pulse 99 99 99 Oximetry O2 Sat by Pulse Oximetry [ Bilateral] 10/05/21 10/05/21 10/05/21 16:24 16:29 16:35 Temperature Pulse Rate 86 80 76 Respiratory Rate Blood Pressure Blood Pressure [Left] O2 Sat by Pulse 99 98 100 Oximetry O2 Sat by Pulse Oximetry [ Bilateral] 10/05/21 10/05/21 16:41 16:46 Temperature Pulse Rate 92 H 92 H Respiratory Rate Blood Pressure Blood Pressure [Left] O2 Sat by Pulse 100 99 Oximetry O2 Sat by Pulse Oximetry [ Bilateral] - Exam Narrative Exam: IV pain medication given. Spoke with anesthesia team, Anil WALKER, regarding bolus. Will only bolus 500ml for epidural placement. Cardiovascular: Regular rate Lungs: Normal air movement Abdomen: Present: normal appearance, soft Vulva: both: normal FHR: category 1 Uterine Contraction Monitor Mode: External Cervical Dilatation: 2.5 Cervical Effacement Percentage: 50 station: -2 Uterine Contraction Pattern: Regular Uterine Tone Measurement Phase: Resting Uterine Contraction Intensity: Moderate - Labs Labs: Abnormal Labs 09/03/21 09/09/21 09/12/21 13:00 08:45 07:43 WBC 11.6 H RBC 3.52 L 3.58 L MCH MCHC RDW 12.7 L 13.0 L Seg Neutrophils % 82.2 H 77.1 H Seg Neutrophils # 7.9 H 8.9 H 09/14/21 09/26/21 10/04/21 13:16 14:27 06:01 WBC RBC 3.55 L 3.57 L MCH 33 H MCHC 35 H RDW 12.8 L 13.1 L Seg Neutrophils % 75.9 H Seg Neutrophils #
[2021-10-05] MEDS ORDERED: NALOXONE 2 MG/2 ML INJ IV PRN (16:54)
[2021-10-05] MEDS ORDERED: ePHEDrine SULFATE 50 MG/1 ML INJ IV PRN (16:54)
--- NOTE | 2021-10-05 16:54 | Anesthesia Consultation ---
Anesthesia Consult and Med Hx Date of service: 10/05/21 - Airway Anesthetic Teeth Evaluation: Good ROM Head & Neck: Adequate Mental/Hyoid Distance: Adequate Mallampati Class: Class II Intubation Access Assessment: Probably Good - Pulmonary Exam CTA: Yes - Cardiac Exam Cardiac Exam: RRR - Pre-Operative Health Status ASA Pre-Surgery Classification: ASA3 Proposed Anesthetic Plan: Epidural - Pulmonary Hx Smoking: Yes Hx Asthma: No COPD: No - Cardiovascular System Hx Hypertension: No - Central Nervous System Hx Seizures: No Hx Psychiatric Problems: No - Endocrine Hx Renal Disease: No Hx End Stage Renal Disease: No Hx Hypothyroidism: No Hx Hyperthyroidism: No - Hematic Hx Anemia: No Hx Sickle Cell Disease: No - Other Systems Hx Alcohol Use: No - Additional Comments Anesthesia Medical History Comments: Mild cardiomyopathy EF 40%
[2021-10-05] MEDS ORDERED: fentaNYL-BUPIV 2 MCG/ML-0.125% 200 MCG/100 ML BAG EPIDURAL SCH (17:00)
--- NOTE | 2021-10-05 18:28 | Progress Note ---
Labor Epidural - Labor Epidural Start Time: 18:00 Stop Time: 18:22 Performed by:: RUBINA QUESADA Procedure: Patient is requesting epidural for labor pain. H&P, and labs reviewed. Procedure explained, questions answered, consent obtained. Patient in sitting position with blood pressure cuff and pulse ox on and working. Timeout performed immediately before start of procedure. Sterile Chloraprep prep/drape. 3 mL 1% lidocaine skin wheal at L[3]-L[4]. 17-gauge tuohy epidural needle advanced to [id number] with saline at [7] cm. 25-gauge spinal needle advanced until clear, free-flowing CSF. Intrathecal dexmedetomidine [5] mcg administered and needle removed. Epidural catheter advanced to [12] cm, negative aspiration for blood and csf, negative test dose 3 ml 1.5% lidocaine with epinephrine. Sterile sponge and tegaderm applied, followed by tape reinforcement. Patient tolerated procedure well.
--- NOTE | 2021-10-05 19:25 | Event Note ---
Date: 10/05/21 (Deceleration after epidural placement) Pt had a prolonged heart rate deceleration into the 60-80's after epidural placement. heart rate returned to baseline after administration of ephedrine. Cervical exam . Will continue to monitor blood pressures and progress of labor.
[2021-10-05] MEDS ORDERED: ONDANSETRON 4 MG/2 ML INJ IV PRN (23:36)
--- NOTE | 2021-10-06 00:51 | Progress Note ---
Assessment and Plan A: 30 y.o. @ 34.2, IOL. Cardiomyopathy, PPROM. - Patient Problems (1) premature rupture of membranes (PPROM) with unknown onset of labor Current Visit: Yes Status: Acute Plan to address problem: Continue with Pitocin for IOL. Continue to monitor for s/sx of chorioamnionitis. Continue to monitor status through EFM. Anticipate . 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 Subjective - Subjective Date of service: 10/06/21 Principal diagnosis: PPROM, IUP @ 34.1 wks; Cardiomyopathy, tachycardia, IOL Interval history: Pt states that she is feeling more vaginal pressure. Patient reports: loss of fluid, movement normal, no new complaints, no vaginal bleeding, no contractions Objective - Vital Signs Vital Signs: Vital Signs - 12hr 10/05/21 10/05/21 10/05/21 12:47 12:52 12:55 Temperature Pulse Rate 96 H 90 91 H Respiratory Rate Blood Pressure O2 Sat by Pulse 98 97 93 Oximetry O2 Sat by Pulse Oximetry [ Bilateral] 10/05/21 10/05/21 10/05/21 12:57 13:02 13:07 Temperature Pulse Rate 91 H 73 104 H Respiratory Rate Blood Pressure O2 Sat by Pulse 97 96 97 Oximetry O2 Sat by Pulse Oximetry [ Bilateral] 10/05/21 10/05/21 10/05/21 13:12 13:17 13:22 Temperature Pulse Rate 84 76 82 Respiratory Rate Blood Pressure O2 Sat by Pulse 96 96 96 Oximetry O2 Sat by Pulse Oximetry [ Bilateral] 10/05/21 10/05/21 10/05/21 13:27 13:29 13:32 Temperature Pulse Rate 107 H 120 H 115 H Respiratory Rate Blood Pressure O2 Sat by Pulse 96 94 100 Oximetry O2 Sat by Pulse Oximetry [ Bilateral] 10/05/21 10/05/21 10/05/21 13:37 13:42 13:47 Temperature Pulse Rate 108 H 78 80 Respiratory Rate Blood Pressure O2 Sat by Pulse 97 97 96 Oximetry O2 Sat by Pulse Oximetry [ Bilateral] 10/05/21 10/05/21 10/05/21 13:52 13:57 14:02 Temperature Pulse Rate 84 86 86 Respiratory Rate Blood Pressure O2 Sat by Pulse 96 96 97 Oximetry O2 Sat by Pulse Oximetry [ Bilateral] 10/05/21 10/05/21 10/05/21 14:07 14:12 14:17 Temperature Pulse Rate 97 H 91 H 86 Respiratory Rate Blood Pressure O2 Sat by Pulse 96 97 97 Oximetry O2 Sat by Pulse Oximetry [ Bilateral] 10/05/21 10/05/21 10/05/21 14:22 14:27 14:32 Temperature Pulse Rate 101 H 89 82 Respiratory Rate Blood Pressure O2 Sat by Pulse 99 96 97 Oximetry O2 Sat by Pulse Oximetry [ Bilateral] 10/05/21 10/05/21 10/05/21 14:37 14:42 14:47 Temperature Pulse Rate 97 H 81 82 Respiratory Rate Blood Pressure O2 Sat by Pulse 97 99 99 Oximetry O2 Sat by Pulse Oximetry [ Bilateral] 10/05/21 10/05/21 10/05/21 14:52 14:57 15:02 Temperature Pulse Rate 75 86 88 Respiratory Rate Blood Pressure O2 Sat by Pulse 98 97 97 Oximetry O2 Sat by Pulse Oximetry [ Bilateral] 10/05/21 10/05/21 10/05/21 15:07 15:12 15:17 Temperature Pulse Rate 84 87 84 Respiratory Rate Blood Pressure O2 Sat by Pulse 97 97 100 Oximetry O2 Sat by Pulse Oximetry [ Bilateral] 10/05/21 10/05/21 10/05/21 15:22 15:54 15:59 Temperature Pulse Rate 79 79 77 Respiratory Rate Blood Pressure O2 Sat by Pulse 100 99 99 Oximetry O2 Sat by Pulse Oximetry [ Bilateral] 10/05/21 10/05/21 10/05/21 16:04 16:09 16:14 Temperature Pulse Rate 81 79 76 Respiratory Rate Blood Pressure O2 Sat by Pulse 97 99 99 Oximetry O2 Sat by Pulse Oximetry [ Bilateral] 10/05/21 10/05/21 10/05/21 16:19 16:24 16:29 Temperature Pulse Rate 89 86 80 Respiratory Rate Blood Pressure O2 Sat by Pulse 99 99 98 Oximetry O2 Sat by Pulse Oximetry [ Bilateral] 10/05/21 10/05/21 10/05/21 16:35 16:41 16:46 Temperature Pulse Rate 76 92 H 92 H Respiratory Rate Blood Pressure O2 Sat by Pulse 100 100 99 Oximetry O2 Sat by Pulse Oximetry [ Bilateral] 10/05/21 10/05/21 10/05/21 16:49 16:51 16:56 Temperature Pulse Rate 93 H 83 96 H Respiratory Rate Blood Pressure O2 Sat by Pulse 89 96 97 Oximetry O2 Sat by Pulse Oximetry [ Bilateral] 10/05/21 10/05/21 10/05/21 17:01 17:06 17:11 Temperature Pulse Rate 89 83 77 Respiratory Rate Blood Pressure O2 Sat by Pulse 96 96 95 Oximetry O2 Sat by Pulse Oximetry [ Bilateral] 10/05/21 10/05/21 10/05/21 17:16 17:18 17:21 Temperature Pulse Rate 91 H 86 93 H Respiratory Rate Blood Pressure O2 Sat by Pulse 98 94 97 Oximetry O2 Sat by Pulse Oximetry [ Bilateral] 10/05/21 10/05/21 10/05/21 17:41 17:46 17:51 Temperature Pulse Rate 84 80 92 H Respiratory Rate Blood Pressure O2 Sat by Pulse 99 99 100 Oximetry O2 Sat by Pulse Oximetry [ Bilateral] 10/05/21 10/05/21 10/05/21 17:56 18:01 18:06 Temperature Pulse Rate 74 92 H 92 H Respiratory Rate Blood Pressure O2 Sat by Pulse 93 99 100 Oximetry O2 Sat by Pulse Oximetry [ Bilateral] 10/05/21 10/05/21 10/05/21 18:11 18:16 18:21 Temperature Pulse Rate 94 H 100 H 95 H Respiratory Rate Blood Pressure O2 Sat by Pulse 100 99 99 Oximetry O2 Sat by Pulse Oximetry [ Bilateral] 10/05/21 10/05/21 10/05/21 18:24 18:25 18:26 Temperature Pulse Rate 87 104 H 88 Respiratory Rate Blood Pressure 150/81 138/89 O2 Sat by Pulse 99 Oximetry O2 Sat by Pulse Oximetry [ Bilateral] 10/05/21 10/05/21 10/05/21 18:27 18:29 18:31 Temperature Pulse Rate 93 H 116 H 105 H Respiratory Rate Blood Pressure 133/78 123/71 118/67 O2 Sat by Pulse 100 Oximetry O2 Sat by Pulse Oximetry [ Bilateral] 10/05/21 10/05/21 10/05/21 18:33 18:35 18:36 Temperature Pulse Rate 107 H 101 H 104 H Respiratory Rate Blood Pressure 106/56 101/59 O2 Sat by Pulse 100 Oximetry O2 Sat by Pulse Oximetry [ Bilateral] 10/05/21 10/05/21 10/05/21 18:37 18:39 18:41 Temperature Pulse Rate 100 H 62 70 Respiratory Rate Blood Pressure 93/52 84/51 O2 Sat by Pulse 100 Oximetry O2 Sat by Pulse Oximetry [ Bilateral] 10/05/21 10/05/21 10/05/21 18:44 18:45 18:46 Temperature Pulse Rate 80 91 H 85 Respiratory Rate Blood Pressure 105/57 109/64 O2 Sat by Pulse 100 Oximetry O2 Sat by Pulse Oximetry [ Bilateral] 10/05/21 10/05/21 10/05/21 18:47 18:49 18:51 Temperature Pulse Rate 105 H 92 H 99 H Respiratory Rate Blood Pressure 110/58 108/63 105/61 O2 Sat by Pulse 100 Oximetry O2 Sat by Pulse Oximetry [ Bilateral] 10/05/21 10/05/21 10/05/21 18:53 18:55 18:56 Temperature Pulse Rate 98 H 93 H 94 H Respiratory Rate Blood Pressure 108/67 111/64 O2 Sat by Pulse 100 Oximetry O2 Sat by Pulse Oximetry [ Bilateral] 10/05/21 10/05/21 10/05/21 19:02 19:06 19:07 Temperature Pulse Rate 89 80 88 Respiratory Rate Blood Pressure 116/60 114/64 O2 Sat by Pulse 100 97 Oximetry O2 Sat by Pulse Oximetry [ Bilateral] 10/05/21 10/05/21 10/05/21 19:11 19:12 19:17 Temperature Pulse Rate 95 H 98 H 95 H Respiratory Rate Blood Pressure 114/66 O2 Sat by Pulse 100 100 Oximetry O2 Sat by Pulse Oximetry [ Bilateral] 10/05/21 10/05/21 10/05/21 19:18 19:21 19:22 Temperature Pulse Rate 97 H 90 90 Respiratory Rate Blood Pressure 109/78 106/64 O2 Sat by Pulse 99 Oximetry O2 Sat by Pulse Oximetry [ Bilateral] 10/05/21 10/05/21 10/05/21 19:27 19:31 19:32 Temperature Pulse Rate 90 107 H 94 H Respiratory Rate Blood Pressure 105/64 101/61 O2 Sat by Pulse 100 100 Oximetry O2 Sat by Pulse Oximetry [ Bilateral] 10/05/21 10/05/2110/05/22 19:35 19:36 19:37 Temperature Pulse Rate 90 84 Respiratory Rate Blood Pressure 104/59 O2 Sat by Pulse 100 Oximetry O2 Sat by Pulse 100 Oximetry [ Bilateral] 10/05/21 10/05/21 10/05/21 19:42 19:47 19:48 Temperature Pulse Rate 84 83 92 H Respiratory Rate Blood Pressure 101/58 99/55 O2 Sat by Pulse 100 100 Oximetry O2 Sat by Pulse Oximetry [ Bilateral] 10/05/21 10/05/21 10/05/21 19:52 19:57 20:02 Temperature Pulse Rate 91 H 86 99 H Respiratory Rate Blood Pressure O2 Sat by Pulse 100 100 100 Oximetry O2 Sat by Pulse Oximetry [ Bilateral] 10/05/21 10/05/21 10/05/21 20:06 20:07 20:10 Temperature 97.6 F Pulse Rate 93 H 92 H Respiratory 18 Rate Blood Pressure 106/62 O2 Sat by Pulse 100 100 Oximetry O2 Sat by Pulse Oximetry [ Bilateral] 10/05/21 10/05/21 10/05/21 20:12 20:17 20:22 Temperature Pulse Rate 106 H 93 H 96 H Respiratory Rate Blood Pressure 103/61 O2 Sat by Pulse 100 100 98 Oximetry O2 Sat by Pulse Oximetry [ Bilateral] 10/05/21 10/05/21 10/05/21 20:27 20:32 20:37 Temperature Pulse Rate 86 84 86 Respiratory Rate Blood Pressure O2 Sat by Pulse 99 99 100 Oximetry O2 Sat by Pulse Oximetry [ Bilateral] 10/05/21 10/05/21 10/05/21 20:42 20:47 20:52 Temperature Pulse Rate 100 H 85 85 Respiratory Rate Blood Pressure O2 Sat by Pulse 100 100 98 Oximetry O2 Sat by Pulse Oximetry [ Bilateral] 10/05/21 10/05/21 10/05/21 20:54 20:57 21:02 Temperature Pulse Rate 85 88 88 Respiratory Rate Blood Pressure 91/53 O2 Sat by Pulse 98 100 Oximetry O2 Sat by Pulse Oximetry [ Bilateral] 10/05/21 10/05/21 10/05/21 21:07 21:12 21:14 Temperature Pulse Rate 85 87 107 H Respiratory Rate Blood Pressure O2 Sat by Pulse 99 99 73 L Oximetry O2 Sat by Pulse Oximetry [ Bilateral] 10/05/21 10/05/21 10/05/21 21:17 21:22 21:24 Temperature Pulse Rate 91 H 91 H 76 Respiratory Rate Blood Pressure 106/60 O2 Sat by Pulse 99 100 Oximetry O2 Sat by Pulse Oximetry [ Bilateral] 10/05/21 10/05/21 10/05/21 21:27 21:32 21:37 Temperature Pulse Rate 96 H 105 H 98 H Respiratory Rate Blood Pressure O2 Sat by Pulse 100 98 100 Oximetry O2 Sat by Pulse Oximetry [ Bilateral] 10/05/21 10/05/21 10/05/21 21:42 21:47 21:52 Temperature Pulse Rate 107 H 102 H 82 Respiratory Rate Blood Pressure O2 Sat by Pulse 100 99 100 Oximetry O2 Sat by Pulse Oximetry [ Bilateral] 10/05/21 10/05/21 10/05/21 21:53 21:57 22:02 Temperature Pulse Rate 90 85 90 Respiratory Rate Blood Pressure 120/67 O2 Sat by Pulse 100 100 Oximetry O2 Sat by Pulse Oximetry [ Bilateral] 10/05/21 10/05/21 10/05/21 22:07 22:12 22:17 Temperature Pulse Rate 89 111 H 78 Respiratory Rate Blood Pressure O2 Sat by Pulse 100 100 100 Oximetry O2 Sat by Pulse Oximetry [ Bilateral] 10/05/21 10/05/21 10/05/21 22:22 22:27 22:31 Temperature Pulse Rate 88 82 90 Respiratory Rate Blood Pressure 99/57 O2 Sat by Pulse 100 100 Oximetry O2 Sat by Pulse Oximetry [ Bilateral] 10/05/21 10/05/21 10/05/21 22:32 22:37 22:42 Temperature Pulse Rate 92 H 85 81 Respiratory Rate Blood Pressure O2 Sat by Pulse 100 100 100 Oximetry O2 Sat by Pulse Oximetry [ Bilateral] 10/05/21 10/05/21 10/05/21 22:47 22:49 22:52 Temperature Pulse Rate 92 H 85 80 Respiratory Rate Blood Pressure O2 Sat by Pulse 98 94 99 Oximetry O2 Sat by Pulse Oximetry [ Bilateral] 10/05/21 10/05/21 10/05/21 22:57 23:02 23:07 Temperature Pulse Rate 95 H 83 97 H Respiratory Rate Blood Pressure O2 Sat by Pulse 100 98 100 Oximetry O2 Sat by Pulse Oximetry [ Bilateral] 10/05/21 10/05/21 10/05/21 23:11 23:12 23:17 Temperature Pulse Rate 87 78 85 Respiratory Rate Blood Pressure O2 Sat by Pulse 94 95 99 Oximetry O2 Sat by Pulse Oximetry [ Bilateral] 10/05/21 10/05/21 10/05/21 23:22 23:27 23:32 Temperature Pulse Rate 97 H 88 86 Respiratory Rate Blood Pressure O2 Sat by Pulse 99 99 98 Oximetry O2 Sat by Pulse Oximetry [ Bilateral] 10/05/21 10/05/21 10/05/21 23:37 23:42 23:47 Temperature Pulse Rate 116 H 99 H 101 H Respiratory Rate Blood Pressure O2 Sat by Pulse 99 99 99 Oximetry O2 Sat by Pulse Oximetry [ Bilateral] 10/05/21 10/05/21 10/05/21 23:52 23:54 23:57 Temperature Pulse Rate 71 78 75 Respiratory Rate Blood Pressure 108/57 O2 Sat by Pulse 99 99 Oximetry O2 Sat by Pulse Oximetry [ Bilateral] 10/06/21 10/06/21 10/06/21 00:02 00:07 00:12 Temperature Pulse Rate 84 72 83 Respiratory Rate Blood Pressure O2 Sat by Pulse 99 100 99 Oximetry O2 Sat by Pulse Oximetry [ Bilateral] 10/06/21 10/06/21 10/06/21 00:17 00:22 00:25 Temperature Pulse Rate 88 82 89 Respiratory Rate Blood Pressure 105/59 O2 Sat by Pulse 99 100 Oximetry O2 Sat by Pulse Oximetry [ Bilateral] 10/06/21 10/06/21 10/06/21 00:27 00:32 00:37 Temperature Pulse Rate 83 90 94 H Respiratory Rate Blood Pressure O2 Sat by Pulse 100 100 100 Oximetry O2 Sat by Pulse Oximetry [ Bilateral] 10/06/21 10/06/21 00:42 00:45 Temperature 98.2 F Pulse Rate 91 H Respiratory 18 Rate Blood Pressure O2 Sat by Pulse 100 100 Oximetry O2 Sat by Pulse Oximetry [ Bilateral] - Exam Breasts: deferred Cardiovascular: Regular rate Lungs: Normal air movement Abdomen: Present: normal appearance, soft Vulva: both: normal Uterus: Present: normal FHR: category 1 Uterine Contraction Monitor Mode: External Cervical Dilatation: 5 (AROM of forebag, clear fluid) Cervical Effacement Percentage: 90 station: -1 Uterine Contraction Pattern: Regular Uterine Tone Measurement Phase: Resting Uterine Contraction Intensity: Moderate Extremities: normal - Labs Labs: Abnormal Labs 09/03/21 09/09/2122 13:00 08:45 07:43 WBC 11.6 H RBC 3.52 L 3.58 L MCH MCHC RDW 12.7 L 13.0 L Seg Neutrophils % 82.2 H 77.1 H Seg Neutrophils # 7.9 H 8.9 H 09/14/21 09/26/21 10/04/21 13:16 14:27 06:01 WBC RBC 3.55 L 3.57 L MCH 33 H MCHC 35 H RDW 12.8 L 13.1 L Seg Neutrophils % 75.9 H Seg Neutrophils #
--- NOTE | 2021-10-06 02:58 | Procedure Note ---
OB Delivery Note - Delivery Date of Delivery: 10/06/21 [employer] Developer: MANUELITO GUZMAN Estimated blood loss: 100cc - Vaginal Delivery presentation: vertex Delivery position: OA Intrapartum events: labor-<37 weeks, PROM->1hr before delivery Delivery induction: none Delivery augmentation: rupture of membranes (AROM of forebag) Delivery monitor: external FHT, external uterine Route of delivery: Delivery placenta: spontaneous Delivery cord: 3 umbilical vessels Delivery laceration: other Anesthesia: epidural Delivery comments: of viable male . Infant to mother's abdomen for brief skin to skin. Cord clamped after cessation of pulse. Cut by FOC. Spontaneous delivery of placenta, intact, complete, 3 vessels noted. Sent to pathology. Perineum and vagina inspected, right periuretheral abrasion noted. No repair needed. Fundus firm, minimal bleeding noted. EBL 100ml. weight 5-14. Apgars 8,9. Instruments and sponges counted X2 with RN and correct X2 with RN. taken to NICU with NICU staff. Mother left in stable condition in care of RN. - A at 1 minute: 8 at 5 minutes: 9 Infant Gender: Male ("Bubba", 5-14)
[2021-10-06] MEDS ORDERED: miSOPROStol 100 MCG TAB PR PRN (05:38)
[2021-10-06] MEDS ORDERED: BENZOCAINE/MENTHOL 20/0.5% TOP SPRAY 56 GM TP PRN (05:38)
[2021-10-06] MEDS ORDERED: OXYTOCIN DRIP 30 UNITS/500 ML BAG IV SCH (05:38)
[2021-10-06] MEDS ORDERED: WITCH HAZEL/ GLYCERIN PAD TP PRN (05:38)
[2021-10-06] MEDS ORDERED: MAGNESIUM HYDROXIDE (MOM) ORAL LIQD UDC PO PRN (05:38)
[2021-10-06] MEDS ORDERED: LANOLIN/ZINC/DIMETHICONE (LANSINOH) 7 GM TP PRN ×2 (05:38)
[2021-10-06] MEDS ORDERED: ONDANSETRON 4 MG/2 ML INJ IV PRN (05:38)
[2021-10-06] MEDS ORDERED: HYDROCORTISONE 25 MG RECTAL SUPP PR PRN (05:38)
[2021-10-06] MEDS ORDERED: oxyCODONE /ACETAMINOPHEN 5-325MG TAB PO PRN (05:38)
[2021-10-06] MEDS ORDERED: diphenhydrAMINE 25 MG CAP PO PRN (05:38)
[2021-10-06] MEDS ORDERED: PROMETHAZINE 25 MG RECT SUPP PR PRN (05:38)
[2021-10-06] MEDS ORDERED: PROMETHAZINE 25 MG TAB PO PRN (05:38)
[2021-10-06] MEDS ORDERED: ACETAMINOPHEN 500 MG TAB PO PRN (05:50)
[2021-10-06] MEDS: IBUPROFEN 800 MG TAB PO SCH ×3 (06:00→18:10)
--- NOTE | 2021-10-06 08:24 | Progress Note ---
Assessment and Plan Pt in bed resting comfortably, no complaints. Baby in NICU. Plans to breast and bottle feed. Wants circ for baby boy. Discussed control options and voiced maybe the pill option. VSSAf and stable. Uterus firm and normal lochia. 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 Strict I&O with avoidance of fluid overload. (2) delivery, delivered Current Visit: Yes Status: Acute Plan to address problem: continue pathway Subjective - Subjective Date of service: 10/06/21 Principal diagnosis: day #0; ; Cardiomyopathy Patient reports: appetite normal, voiding normally, pain well controlled, ambulating normally, no dizzy ambulation, no nauseated [place]: in NICU Objective - Vital Signs Latest vital signs: Vital Signs Temp Pulse Resp BP Pulse Ox Pulse Ox 10/06/21 06:00 16 10/06/21 05:06 98.1 F 95 H 18 130/78 95 100 10/06/21 04:55 101 H 100 10/06/21 04:50 115 H 99 10/06/21 04:45 97 H 99 10/06/21 04:40 95 H 99 10/06/21 04:35 91 H 100 10/06/21 04:30 104 H 99 10/06/21 04:29 91 10/06/21 04:10 102 H 100 10/06/21 04:05 74 100 10/06/21 04:00 82 100 10/06/21 03:55 91 H 100 10/06/21 03:54 89 130/79 10/06/21 03:50 101 H 100 10/06/21 03:45 86 100 10/06/21 03:40 100 H 100 10/06/21 03:35 110 H 100 10/06/21 03:30 84 100 10/06/21 03:25 105 H 100 10/06/21 03:24 92 H 119/65 10/06/21 03:20 88 100 10/06/21 03:15 89 100 10/06/21 03:10 81 100 10/06/21 03:05 102 H 100 10/06/21 03:00 107 H 100 10/06/21 02:55 105 H 99 10/06/21 02:54 103 H 135/73 88 10/06/21 02:37 103 H 100 10/06/21 02:32 134 H 100 10/06/21 02:27 96 H 100 10/06/21 02:25 92 H 146/76 10/06/21 02:22 131 H 100 10/06/21 02:17 129 H 100 10/06/21 02:12 95 H 100 10/06/21 02:07 93 H 97 10/06/21 02:02 96 H 100 10/06/21 01:57 100 H 100 10/06/21 01:54 96 H 123/80 10/06/21 01:52 115 H 100 10/06/21 01:47 93 H 100 10/06/21 01:42 87 100 10/06/21 01:37 105 H 100 10/06/21 01:32 91 H 100 10/06/21 01:27 89 100 10/06/21 01:25 78 90 10/06/21 01:24 74 138/81 10/06/21 01:22 87 100 10/06/21 01:17 89 100 10/06/21 01:12 99 H 100 10/06/21 01:07 96 H 100 10/06/21 01:02 80 100 10/06/21 00:57 81 100 10/06/21 00:54 86 131/70 10/06/21 00:52 88 100 10/06/21 00:47 93 H 100 10/06/21 00:45 98.2 F 18 100 10/06/21 00:42 91 H 100 10/06/21 00:37 94 H 100 10/06/21 00:32 90 100 10/06/21 00:27 83 100 10/06/21 00:25 89 105/59 10/06/21 00:22 82 100 10/06/21 00:17 88 99 10/06/21 00:12 83 99 10/06/21 00:07 72 100 10/06/21 00:02 84 99 10/05/21 23:57 75 99 10/05/21 23:54 78 108/57 10/05/21 23:52 71 99 10/05/21 23:47 101 H 99 10/05/21 23:42 99 H 99 10/05/21 23:37 116 H 99 10/05/21 23:32 86 98 10/05/21 23:27 88 99 10/05/21 23:22 97 H 99 10/05/21 23:17 85 99 10/05/21 23:12 78 95 10/05/21 23:11 87 94 10/05/21 23:07 97 H 100 10/05/21 23:02 83 98 10/05/21 22:57 95 H 100 10/05/21 22:52 80 99 10/05/21 22:49 85 94 10/05/21 22:47 92 H 98 10/05/21 22:42 81 100 10/05/21 22:37 85 100 10/05/21 22:32 92 H 100 10/05/21 22:31 90 99/57 10/05/21 22:27 82 100 10/05/21 22:22 88 100 10/05/21 22:17 78 100 10/05/21 22:12 111 H 100 10/05/21 22:07 89 100 10/05/21 22:02 90 100 10/05/21 21:57 85 100 10/05/21 21:53 90 120/67 10/05/21 21:52 82 100 10/05/21 21:47 102 H 99 10/05/21 21:42 107 H 100 10/05/21 21:37 98 H 100 10/05/21 21:32 105 H 98 10/05/21 21:27 96 H 100 10/05/21 21:24 76 106/60 10/05/21 21:22 91 H 100 10/05/21 21:17 91 H 99 10/05/21 21:14 107 H 73 L 10/05/21 21:12 87 99 10/05/21 21:07 85 99 10/05/21 21:02 88 100 10/05/21 20:57 88 98 10/05/21 20:54 85 91/53 10/05/21 20:52 85 98 10/05/21 20:47 85 100 10/05/21 20:42 100 H 100 10/05/21 20:37 86 100 10/05/21 20:32 84 99 10/05/21 20:27 86 99 10/05/21 20:22 96 H 103/61 98 03 20:17 93 H 100 10/05/21 20:12 106 H 100 10/05/21 20:10 97.6 F 18 100 10/05/21 20:07 92 H 100 10/05/21 20:06 93 H 106/62 10/05/21 20:02 99 H 100 10/05/21 19:57 86 100 10/05/21 19:52 91 H 100 10/05/21 19:48 92 H 99/55 10/05/21 19:47 83 100 10/05/21 19:42 84 101/58 100 10/05/21 19:37 84 100 10/05/21 19:36 90 104/59 10/05/21 19:35 100 10/05/21 19:32 94 H 100 10/05/21 19:31 107 H 101/61 10/05/21 19:27 90 105/64 100 10/05/21 19:22 90 99 10/05/21 19:21 90 106/64 10/05/21 19:18 97 H 109/78 10/05/21 19:17 95 H 100 10/05/21 19:12 98 H 100 10/05/21 19:11 95 H 114/66 10/05/21 19:07 88 97 10/05/21 19:06 80 114/64 10/05/21 19:02 89 116/60 100 10/05/21 18:56 94 H 100 10/05/21 18:55 93 H 111/64 10/05/21 18:53 98 H 108/67 10/05/21 18:51 99 H 105/61 100 10/05/21 18:49 92 H 108/63 10/05/21 18:47 105 H 110/58 10/05/21 18:46 85 100 10/05/21 18:45 91 H 109/64 10/05/21 18:44 80 105/57 10/05/21 18:41 70 100 10/05/21 18:39 62 84/51 10/05/21 18:37 100 H 93/52 10/05/21 18:36 104 H 100 10/05/21 18:35 101 H 101/59 10/05/21 18:33 107 H 106/56 10/05/21 18:31 105 H 118/67 100 10/05/21 18:29 116 H 123/71 10/05/21 18:27 93 H 133/78 10/05/21 18:26 88 99 10/05/21 18:25 104 H 138/89 10/05/21 18:24 87 150/81 10/05/21 18:21 95 H 99 10/05/21 18:16 100 H 99 10/05/21 18:11 94 H 100 10/05/21 18:06 92 H 100 10/05/21 18:01 92 H 99 10/05/21 17:56 74 93 10/05/21 17:51 92 H 100 10/05/21 17:46 80 99 10/05/21 17:41 84 99 10/05/21 17:21 93 H 97 10/05/21 17:18 86 94 10/05/21 17:16 91 H 98 10/05/21 17:11 77 95 10/05/21 17:06 83 96 10/05/21 17:01 89 96 10/05/21 16:56 96 H 97 10/05/21 16:51 83 96 10/05/21 16:49 93 H 89 10/05/21 16:46 92 H 99 10/05/21 16:41 92 H 100 10/05/21 16:35 76 100 10/05/21 16:29 80 98 10/05/21 16:24 86 99 10/05/21 16:19 89 99 10/05/21 16:14 76 99 10/05/21 16:09 79 99 10/05/21 16:04 81 97 10/05/21 15:59 77 99 10/05/21 15:54 79 99 10/05/21 15:22 79 100 10/05/21 15:17 84 100 10/05/21 15:12 87 97 10/05/21 15:07 84 97 10/05/21 15:02 88 97 10/05/21 14:57 86 97 10/05/21 14:52 75 98 10/05/21 14:47 82 99 10/05/21 14:42 81 99 03/13/22 14:37 97 H 97 10/05/21 14:32 82 97 03 14:27 89 96 03 14:22 101 H 99 10/05/21 14:17 86 97 03 14:12 91 H 97 10/05/21 14:07 97 H 96 10/05/21 14:02 86 97 10/05/21 13:57 86 96 10/05/21 13:52 84 96 10/05/21 13:47 80 96 10/05/21 13:42 78 97 10/05/21 13:37 108 H 97 10/05/21 13:32 115 H 100 10/05/21 13:29 120 H 94 10/05/21 13:27 107 H 96 10/05/21 13:22 82 96 10/05/21 13:17 76 96 10/05/21 13:12 84 96 10/05/21 13:07 104 H 97 10/05/21 13:02 73 96 10/05/21 12:57 91 H 97 10/05/21 12:55 91 H 93 10/05/21 12:52 90 97 10/05/21 12:47 96 H 98 10/05/21 12:42 74 98 10/05/21 12:37 95 H 97 10/05/21 12:32 102 H 98 10/05/21 12:27 85 98 10/05/21 12:22 78 98 10/05/21 12:17 91 H 98 10/05/21 12:12 104 H 99 10/05/21 12:07 89 98 10/05/21 12:02 91 H 98 10/05/21 11:57 108 H 99 10/05/21 11:52 98 H 99 10/05/21 11:47 101 H 98 10/05/21 11:42 100 H 98 10/05/21 11:37 120 H 97 10/05/21 11:36 91 H 88 10/05/21 11:32 94 H 99 10/05/21 11:29 73 94 10/05/21 11:27 88 96 10/05/21 11:22 83 96 10/05/21 11:17 87 94 10/05/21 11:12 98 H 99 10/05/21 11:07 91 H 97 10/05/21 11:02 95 H 97 10/05/21 10:57 103 H 98 10/05/21 10:52 97 H 98 10/05/21 10:47 118 H 98 10/05/21 10:42 98 H 98 10/05/21 10:37 99 H 98 10/05/21 10:32 103 H 98 10/05/21 10:27 109 H 100 10/05/21 10:22 99 H 97 10/05/21 10:17 87 99 10/05/21 10:12 106 H 96 10/05/21 10:07 101 H 98 10/05/21 10:02 94 10/05/21 10:01 94 10/05/21 09:48 99 H 95 10/05/21 09:47 92 H 94 10/05/21 09:43 106 H 99 10/05/21 09:38 103 H 97 10/05/21 09:33 94 H 99 10/05/21 09:28 96 H 98 10/05/21 09:23 94 H 98 10/05/21 09:18 105 H 99 10/05/21 09:13 110 H 99 10/05/21 09:08 95 H 96 10/05/21 09:03 91 H 99 10/05/21 08:58 102 H 98 10/05/21 08:53 104 H 98 10/05/21 08:48 99 H 98 10/05/21 08:43 105 H 99 10/05/21 08:37 111 H 95 10/05/21 08:28 92 H 98 10/05/21 08:23 98 H 98 Intake and Output 10/05/21 10/06/21 10/06/21 23:59 07:59 15:59 Intake Total 809.101 147.333 Output Total 350 500 Balance 459.101 -352.667 Intake: IV 809.101 27.333 AMPICILLIN/NS 1 GM/50 ML 50 1 gm In 50 ml @ 100 mls/ hr IV Q4H ANNALISA Rx#: [id number] Lactated Ringers 1,000 ml 679.167 @ 125 mls/hr IV DIRECT ANNALISA Rx#:[id number] PITOCin/NS 30 UNIT/500ML 79.934 27.333 30 units In 500 ml @ 4 mls/hr IV TITR ANNALISA Rx#: [id number] Intake, Free Water 120 Output: Urine 350 500 Indwelling Catheter 350 Void 500 Other: Total, Output Amount 350 500 # Voids Void 1 Estimated Blood Loss 100 - Exam Breasts: Present: normal Abdomen: Present: normal appearance, soft Uterus: Present: normal, firm Extremities: Present: normal
[2021-10-06] MEDS: DOCUSATE SODIUM 100 MG CAP PO SCH ×2 (10:29→22:00)
[2021-10-06] MEDS: PRENATAL VIT27-FE FUMARATE-FOLIC ACID VIT TAB PO SCH (10:30)
--- NOTE | 2021-10-06 10:30 | Post Anesthesia Evaluation ---
- Post Anesthesia Evaluation Patient Participated: Yes Airway Patent: Yes Stable Respiratory Function: Yes Nausea/Vomiting: No Temp > 96.8F: Yes Pain Manageable: Yes Adequeate Hydration: Yes Anesthesia Complications: No Block Receding Appropriately: Yes Patient on Ventilator: No
[2021-10-06] MEDS: METOPROLOL TARTRATE 25 MG TAB PO SCH (11:36)
[2021-10-06] MEDS: hydrALAZINE 25 MG TAB PO SCH ×2 (14:07→22:10)
[2021-10-06 16:30] LABS: Hematocrit 34.1 % (30.3-42.9); Hemoglobin 11.1 gm/dl (10.1-14.3)
[2021-10-07] MEDS: IBUPROFEN 800 MG TAB PO SCH ×2 (00:05→07:16)
[2021-10-07] MEDS ORDERED: TETANUS,DIPH,PERTUSS(ACELL) VACCINE 0.5 ML SYRINGE IM ONE (06:00)
--- NOTE | 2021-10-07 09:15 | Discharge Summary ---
Providers - Providers Date of Admission: 09/03/21 11:10 Date of discharge: 10/07/21 Attending physician: KELBY TOSCANO 09/03/21 12:53 Consult to Physician [CONS] Urgent Comment: Consulting Provider: ELLYN CHAO Physician Instructions: Reason For Exam: SROM @ 29.4 wks 09/14/21 11:23 Consult to Cardiology [CONS] Routine Consulting Provider: Reason For Exam: Persistent tachycardia in 09/18/21 14:41 Consult to Anesthesiology [CONS] Routine Consulting Provider[facility] Reason For Exam: Cardiomyopathy in 10/06/21 10:26 Consult to Physician [CONS] Routine Comment: Consulting Provider: AZRA DELGADO Physician Instructions: Reason For Exam: cardiomyopathy - now delivered Primary care physician: ANDRIY ALVARADO Hospitalization Reason for admission: other (PPROM) Delivery: Episiotomy: none Laceration: other (Periurethral abrasions noted. ) Other procedures: none complications: none Discharge diagnosis: delivery Shiro baby: male Pertinent studies: Pt diagnosed with cardiomyopathy during admission for PPROM. She had a cardiology consult and follow up was recommended. Pt is aware that she will need a cardiology follow up after discharge and the number for follow up will be provided to her upon discharge. She is also aware of the medications that she will need to take upon discharge. We also discussed when to call the office with questions and concerns. Today she denies chest pain, shortness of breath, and feeling lightheaded or dizzy. Hospital course: S: Pt doing well. Voiding, passing flatus, and ambulating without difficulty. BC: Pills. O: VSS. H/H 11.1/34.1. Fundus firm, minimal bleeding noted. A: 30 y.o. s/p . Cardiomyopathy. In good condition . P: Discharge home with instructions. Pt to follow up with cardiology after discharge. Pt to call and schedule visit in office in 6 wks. To schedule circumcision once son is discharged from hospital. 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 (3) GBS (group B Streptococcus carrier), +RV culture, currently Status: Acute Plan - Discharge Medications Prescriptions: hydrALAZINE [Apresoline TAB] 25 mg PO BID #60 Lidocain2.5%/Prilocai2.5% [Emla] 1 applic TP ONCE #1 tube Metoprolol [Lopressor TAB] 25 mg PO DAILY #30 Ibuprofen [Motrin] 800 mg PO Q6HR PRN #20 tablet PRN Reason: Pain, Moderate (4-6) - Provider Discharge Summary Activity: routine, no sex for 6 weeks, no heavy lifting 4 weeks, no strenuous exercise Diet: routine Instructions: routine Additional instructions: [] Smoking cessation referral if applicable(refer to patient education folder for contact #) [] Refer to [facility]'s [facility] Booklet Call your doctor immediately for: * Fever > 100.5 * Heavy vaginal bleeding ( >1 pad per hour) * Severe persistent headache * Shortness of breath * Reddened, hot, painful area to leg or breast * Drainage or odor from incision. * Keep incision clean and dry at all times and follow doctor's instructions regarding bathing/showering - Follow up plan Follow up: AZRA DELGADO MD [Staff Physician] - 7 Days ANDRIY ALVARADO MD [Primary Care Provider] - 7 Days (Congratulations on the of your son! Thank you for allowing us to take care of you. Once your son is discharged from the hospital, please call the office to sche dule his circumcision. Bring the EMLA cream to the office for his circumcision. Please follow up with the heart doctor once you are discharged home. The number has been provided to you. Please take all medications as prescribed. If you feel dizzy, lightheaded, have chest pain, or just do not feel good after discharge, please call us and let us know immediately. if you have any questions or concerns after discharge, please call us at [phone]. ) Forms: [facility] Discharge Summary
[2021-10-07 09:18] VITALS: BP 114/64
[2021-10-07] MEDS: DOCUSATE SODIUM 100 MG CAP PO SCH (10:44)
[2021-10-07] MEDS: METOPROLOL TARTRATE 25 MG TAB PO SCH (10:45)
[2021-10-07] MEDS: PRENATAL VIT27-FE FUMARATE-FOLIC ACID VIT TAB PO SCH (10:45)
== END 2021-10-07 11:30 | disposition home or self-care (01) | DRG 805 ==
LOC: LD 10:52 → UNDOADMIN 10:52 → LD 11:10 → OB 10-06 04:56
PROVIDERS: ADMIT Obstetrics & Gynecology; ATTEND Obstetrics & Gynecology
PROC: 10E0XZZ Delivery of Products of Conception, External Approach (ICD-10-PCS; principal; 2021-10-06)
PROC: 10907ZC Drainage of Amniotic Fluid, Therapeutic from Products of Conception, Via Natural or Artificial Opening (ICD-10-PCS; 2021-10-06)
PROC: 3E0R3BZ Introduction of Anesthetic Agent into Spinal Canal, Percutaneous Approach (ICD-10-PCS; 2021-10-06)
PROC: 00HU33Z Insertion of Infusion Device into Spinal Canal, Percutaneous Approach (ICD-10-PCS; 2021-10-06)
PROC: 3E0234Z Introduction of Serum, Toxoid and Vaccine into Muscle, Percutaneous Approach (ICD-10-PCS; 2021-10-07)
DX: O42.013 Preterm premature rupture of membranes, onset of labor within 24 hours of rupture, third trimester (principal); O90.3 Peripartum cardiomyopathy; Z37.0 Single live birth; O60.14X0 Preterm labor third trimester with preterm delivery third trimester, not applicable or unspecified; Z36.82 Encounter for antenatal screening for nuchal translucency; O28.3 Abnormal ultrasonic finding on antenatal screening of mother; Z3A.29 29 weeks gestation of pregnancy; O35.8XX0 Maternal care for other (suspected) fetal abnormality and damage, not applicable or unspecified; O76 Abnormality in fetal heart rate and rhythm complicating labor and delivery; O99.892 Other specified diseases and conditions complicating childbirth; R00.0 Tachycardia, unspecified; O99.824 Streptococcus B carrier state complicating childbirth; Z20.822 Contact with and (suspected) exposure to COVID-19; Z23 Encounter for immunization; O71.82 Other specified trauma to perineum and vulva
CPT/HCPCS: 36415; 59025; 76815; 76816; 76819; 81001; 84443; 85014; 85018; 85025; 85027; 85461; 86592; 86850; 86900; 86901; 87116; 88307; 93005; 93010; 93306; 99211; G0378; J3490; C8929; G0463; J0290; J0702; J1364; J2405; J2590; J3010; J7120; U0003